=== PATIENT | male | born 1970 | race Caucasian/White ===

== ENCOUNTER 2022-06-06 09:00 | Outpatient (NON) | payer OTHER, SELFPAY | END 2022-06-06 09:01 | disposition home or self-care (01) | LOC: ANHLAB 06-07 08:14 | PROVIDERS: PCP Family Medicine Adolescent Medicine; Visit Provider Internal Medicine Gastroenterology | DX: Z12.11 Encounter for screening for malignant neoplasm of colon (principal) | CPT/HCPCS: 88305 ==

== ENCOUNTER 2022-06-06 11:08 | Day surgery (SDC) | payer OTHER, SELFPAY ==
[2022-04-08 14:09] VITALS: BMI 28.8
[2022-05-26 15:42] VITALS: BMI 29.0
[2022-06-06 11:28] VITALS: BP 146/100; PULSE 91; RESP 16; TEMP 36.4; O2SAT 97
[2022-06-06 11:33] VITALS: BMI 29.8
--- NOTE | 2022-06-06 11:34 | P.PNAN_ITS ---
Anes - Initial Pre Proc Eval Procedure: Operation Date: 06/06/22 13:00 Proposed Procedures p Screening Colonoscopy - Lui Jolly MD Date/Time: 06/06/22 11:34 Surgeon: Lui Jolly MD Pre Op Diagnosis: Neoplasm Screening Patient Data Age: 52 Gender: M Height: 1.85 m Weight: 102.6 kg Last Vital Signs Temp 36.4 C 06/06/22 11:28 Pulse 91 06/06/22 11:28 Resp 16 06/06/22 11:28 BP 146/100 H 06/06/22 11:28 Pulse Ox 97 06/06/22 11:28 O2 Del Method Room Air 06/06/22 11:28 Allergies Allergy/AdvReac Type Severity Reaction Status Date / Time Sulfa (Sulfonamide Allergy Severe Itching Verified 06/06/22 11:26 Antibiotics) Home Medications Medication Instructions Recorded Confirmed Type alirocumab 75 mg/mL subcutaneous See Rx Instructions subcut Q14D #6 11/08/21 0 06/06/22 Rx pen injector (Praluent Pen) mL escitalopram oxalate 20 mg tablet 20 mg PO DAILY 11/11/21 06/06/22 History indomethacin 50 mg capsule 50 mg PO TID #270 caps 03/18/22 06/06/22 Rx Patient hx anesthesia problems: none Family hx anesthesia problems: none Results Review: All pre-operative results and documents have been reviewed as part of the pre- operative evaluation. [facility] Past Medical History Medical History History of deviated nasal septum Surgical History Surgical History History of arthroscopy of right knee Torn meniscus Family History Family History Sibling Diabetes mellitus Father Lung cancer Colon polyp Son Asthma Grandparent Breast cancer Heart disease Mother Hypertension Social History Social History Smoking status: Never smoker Tobacco type: smokeless tobacco Smokeless tobacco user: chewing tobacco Second hand tobacco smoke exposure: No Alcohol intake: current Alcohol use details: 1-2 x week Substance use: never Substance use type: does not use Living arrangements: with family Occupation/Education: occupation Gender identity (if verbalized by the patient): Male Spiritual care concerns: No Agree to blood products: Yes Anes - Eval Final PreProcedure Day of Procedure 06/06/22 11:34 Patient weight: overweight Heart: regular rate and rhythm Lungs: clear to auscultation Airway: Mallampati scale class II Neurological: alert and oriented Last oral intake: >/= 8 hours ASA classification: II Emergent: no Anesthetic plan: proceed Anesthesia type and monitoring: general GIVS and standard monitoring Results Review: All pre-operative results and documents have been reviewed as part of the pre- operative evaluation. Informed Consent: The patient's anesthetic plan and its attendant risks and benefits were discussed with the patient/family/POA. Questions were solicited and answers provided to the satisfaction of the patient/family/POA.
[2022-06-06] MEDS: LACTATED RINGERS 1,000 ML 150 ML IV CONT (11:38)
--- NOTE | 2022-06-06 11:49 | PM.HPGS ---
History of Present Illness History of Present Illness Consent: Risks, benefits, and alternatives have been discussed and questions answered. Patient agrees to proceed with procedure. Chief complaint: Neoplasm Screening Narrative: Getachew Longo is a 52 year old male here for first screening colonoscopy Review of Systems Constitutional: Constitutional: Denies headache(s) and Denies weakness Eyes: Eyes: Denies blurry vision ENT: Reports Normal hearing present, Denies headache(s) and Denies neck pain Cardiovascular: Cardiovascular: Denies chest pain and Denies dyspnea Respiratory: Respiratory: Denies dyspnea Gastrointestinal: Gastrointestinal: Reports no additional gastrointestinal complaints Genitourinary: Genitourinary: Denies dysuria Musculoskeletal: Musculoskeletal: Denies neck pain Integumentary/Breasts: Skin/Breast: Denies dry skin Neurologic: Reports Normal hearing present, Denies headache(s) and Denies weakness Psychiatric: Psychiatric: Denies anxiety Endocrine: Endocrine: Denies change in body appearance Hematologic/Lymphatic: Hematologic/Lymphatic: Denies easy bleeding Allergic/Immunologic: Allergic/Immunologic: Denies urticaria PMF Past Medical History Medical History (Updated 06/06/22 @ 11:50 by Lui Jolly MD) Colon cancer screening History of deviated nasal septum Surgical History Surgical History History of arthroscopy of right knee Torn meniscus Family History Family History Sibling Diabetes mellitus Father Lung cancer Colon polyp Son Asthma Grandparent Breast cancer Heart disease Mother Hypertension Social History Social History Smoking status: Never smoker Tobacco type: smokeless tobacco Smokeless tobacco user: chewing tobacco Second hand tobacco smoke exposure: No Alcohol intake: current Alcohol use details: 1-2 x week Substance use: never Substance use type: does not use Living arrangements: with family Occupation/Education: occupation Gender identity (if verbalized by the patient): Male Spiritual care concerns: No Agree to blood products: Yes Meds Home Medications and Allergies Home Medications Medication Instructions Recorded Confirmed Type alirocumab 75 mg/mL subcutaneous See Rx Instructions subcut Q14D #6 11/08/21 06/06/22 Rx pen injector (Praluent Pen) mL escitalopram oxalate 20 mg tablet 20 mg PO DAILY 11/11/21 06/06/22 History indomethacin 50 mg capsule 50 mg PO TID #270 caps 03/18/22 06/06/22 Rx Allergies Allergy/AdvReac Type Severity Reaction Status Date / Time Sulfa (Sulfonamide Allergy Severe Itching Verified 06/06/22 11:26 Antibiotics) Vital Signs Vital Signs - 24 hr 06/06/22 11:28 Temperature 97.6 F Pulse Rate 91 Respiratory Rate 16 Blood Pressure 146/100 H Pulse Oximetry 97 Oxygen Delivery Room Air Exam Const: General: comfortable and no acute distress HENMT: Face/Nose/Sinus: Normal nares present Eyes: General: appearance normal, both eyes and all related structures Neck: Neck: no JVD Resp: Auscultation: clear to auscultation bilaterally Cardio: Rate: regular rate Rhythm: regular rhythm GI: Inspection: non-distended GI Palp: Yes Soft to palpation Skin: General skin exam: normal color Neuro: General: gait normal Speech: normal speech Extrem: General: normal to inspection Psych: Mental Status: mental status grossly normal Assessment and Plan Assessment and plan (1) Colon cancer screening: Code(s): Z12.11 - Encounter for screening for malignant neoplasm of colon Status: Acute Assessment and Plan: colonoscopy
[2022-06-06 12:08] VITALS: BP 120/77; PULSE 89; RESP 18; O2SAT 97
[2022-06-06 12:18] VITALS: BP 116/81; PULSE 87; RESP 16; O2SAT 97
--- NOTE | 2022-06-06 12:27 | SUR.PHASEII ---
PT AWAKE AND ALERT. TALKATIVE. DRINKING WATER. DENIES PAIN OR NAUSEA.
[2022-06-06 12:28] VITALS: BP 140/91; PULSE 84; RESP 18; O2SAT 97
--- NOTE | 2022-06-06 12:42 | WPDANESPN ---
Anes - Prog Note Post-Op Date/Time: 06/06/22 12:42 Cardiovascular status: normal Respiratory status: normal Airway patency: baseline Mental status: baseline Post-Op hydration status: normal Vital Signs: Last Vital Signs Temp 36.4 C 06/06/22 11:28 Pulse 84 06/06/22 12:28 Resp 18 06/06/22 12:28 BP 140/91 H 06/06/22 12:28 Pulse Ox 97 06/06/22 12:28 O2 Del Method Room Air 06/06/22 12:28 Pain Score (VAS): 0 I/O: Intake & Output 06/05/22 06/06/22 06/06/22 23:59 07:59 15:59 Intake Total 500 Balance 500 Patient Feedback: Patient satisfied with anesthetic care.
== END 2022-06-06 12:49 | disposition home or self-care (01) ==
PROVIDERS: PCP Family Medicine Adolescent Medicine; Visit Provider Internal Medicine Gastroenterology
PROC: 0DJD8ZZ Inspection of Lower Intestinal Tract, Via Natural or Artificial Opening Endoscopic (ICD-10-PCS; CPT 45378; principal; 2022-06-06 13:00)
DX: Z12.11 Encounter for screening for malignant neoplasm of colon (principal)
CPT/HCPCS: 45385

== ENCOUNTER 2024-05-23 14:57 | Outpatient (CLI) | payer OTHER, SELFPAY ==
--- NOTE | ~2024-05-23 | XR_ITS ---
XR sacroiliac joints min 3V Ordering provider: Mo Delacruz History: . Pain in unspecified joint . Comparison: None. FINDINGS: BONES: No acute fracture or dislocation. Possibility of ankylosing spondylitis changes in the spine cannot be excluded. JOINTS: The bilateral sacroiliac joint spaces shows bilateral sacroiliacs. Fusion on the right side c annot be excluded.. SOFT TISSUES: Unremarkable. IMPRESSION: NO ACUTE OSSEOUS ABNORMALITY. 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 Ankylosing spondylitis changes in the lumbar spine are highly suggestive. Clinical correlation advis ed. Reviewed, dictated and finalized at location A. IMPRESSION: NO ACUTE OSSEOUS ABNORMALITY. Bilateral sacroiliitis with highly suggestive fus ion on the right side. Ankylosing spondylitis changes in the lumbar spine are h ighly suggestive. Clinical correlation advised.
--- NOTE | ~2024-05-23 | XR_ITS ---
Left foot Technique: AP and lateral views were obtained. Clinical History: Pain Findings: No acute fracture or dislocation is seen. Osseous alignment is anatomic. Joint spaces are p reserved without erosive or degenerative change. Soft tissues are unremarkable. Impression: Unremarkable left foot radiographs. Reviewed, dictated and finalized at location . Impression: Unremarkable left foot radiographs.
--- NOTE | ~2024-05-23 | XR_ITS ---
Right foot Technique: AP and lateral views were obtained. Clinical History: Pain Findings: No acute fracture or dislocation is seen. Osseous alignment is anatomic. Joint spaces are p reserved without erosive or degenerative change. Soft tissues are unremarkable. Impression: Unremarkable right foot radiographs. Reviewed, dictated and finalized at [facility]. Impression: Unremarkable right foot radiographs.
--- NOTE | ~2024-05-23 | XR_ITS ---
XR hand RT 2V Ordering provider: Mo Delacruz History: . Pain in unspecified joint . Comparison: None. FINDINGS: BONES: No acute fracture or dislocation. JOINT SPACES: Normal. SOFT TISSUES: Normal. IMPRESSION: No acute osseous abnormality right hand. Reviewed, dictated and finalized at location A.
--- NOTE | ~2024-05-23 | XR_ITS ---
XR hand LT 2V Ordering provider: Mo Delacruz History: . Pain in unspecified joint . Comparison: January 11, 2016 FINDINGS: BONES: Postoperative changes are seen in the second, and third distal digits. Healed fractures in the distal phalanx of the fourth and fifth fingers is noted. Minimal subluxation seen in the distal phal anx of the fourth finger. Sclerotic area seen in the distal left radius. Follow-up advised. JOINT SPACES: Well maintained. SOFT TISSUES: Unremarkable. IMPRESSION: No acute osseous abnormality left hand. Postoperative changes in the distal phalanges of the second and third finger. Healed fractures in the distal phalanx of the fourth and fifth fingers. Reviewed, dictated and finalized at location A. IMPRESSION: No acute osseous abnormality left hand. Postoperative changes in the distal phalanges of the second and third finger. H ealed fractures in the distal phalanx of the fourth and fifth fingers.
== END 2024-05-23 14:58 | disposition home or self-care (01) ==
PROVIDERS: PCP Family Medicine Adolescent Medicine
DX: M25.50 Pain in unspecified joint (principal)
CPT/HCPCS: 72202; 73120; 73620

== ENCOUNTER 2024-07-02 08:58 | Outpatient (CLI) | payer OTHER, SELFPAY ==
--- NOTE | ~2024-07-02 | MR_ITS ---
MRI of the left knee Clinical history: Chondromalacia Technique: Coronal proton density and proton density-weighted images, sagittal proton-density and T2 fat-sat images, and axial proton-density fat-saturated images were acquired. Findings: Anterior and posterior cruciate ligaments are intact. Medial collateral ligament and the la teral collateral ligament complex are intact. Popliteus tendon is intact. There is oblique flap tear of the posterior horn of the medial meniscus extending to the body segment . Lateral meniscus intact. Articular cartilage is relatively well preserved throughout the knee. Bone marrow signals are unremar kable. Extensor mechanism is intact. No significant joint effusion or Lacy's cyst. Impression: Oblique flap tear of the posterior horn and body of the medial meniscus. Reviewed, dictated and finalized at location M. Impression: Oblique flap tear of the posterior horn and body of the medial meniscus.
== END 2024-07-02 08:59 | disposition home or self-care (01) ==
LOC: GOSHIMG 08:59
PROVIDERS: PCP Family Medicine Adolescent Medicine; Visit Provider Orthopaedic Surgery
DX: S83.242A Other tear of medial meniscus, current injury, left knee, initial encounter (principal); M94.262 Chondromalacia, left knee; X58.XXXA Exposure to other specified factors, initial encounter
CPT/HCPCS: 73721

== ENCOUNTER 2024-07-12 10:30 | Outpatient (CLI) | payer OTHER, SELFPAY ==
--- NOTE | 2024-07-12 10:44 | ECG_ITS ---
Test Date: 2024-07-12 10:51:45 Measurements Intervals [place] Rate: 68 P: 14 TN: 145 QRS: 12 QRSD: 88 T: 29 QT: 379 QTc: 403 Interpretive Statements SINUS RHYTHM No previous ECG available for comparison Electronically Signed On 07-12-2024 19:10:26 CDT by Deepika Boyce
--- OUTSIDE RECORDS SUMMARY | 2024-07-13 11:52 | XMS_ITS | Clinical Summary ---
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 Name Role Phone JULIO C MAHAJAN MD Unavailable [phone] Reason for Visit and Chief Complaint The Chief Complaint is: follow up for anxiety and depression Problems Includes: Problems addressed during this encounter and other active Problems Current Visit Onset Date Resolved Date Provider Conditio n Status Generalized Anxiety Disorder 08/11/2022 JULIO C MAHAJAN MD Active Last Documented On 3 6:32PM ; [facility] Panic Disorder 08/11/2022 JULIO C Stewart Active Last Documented On 3 6:33PM ; [facility] Psychophysiological Insomnia 05/11/2018 Active Last Documented On 3 5:52PM ; [facility] Major Depression Recurrent Mild 06/12/2012 MAI MAHAJAN MD Active Last Documented On 3 3:12PM ; [facility] Past Visits Onset Date Resolved Date Provider Condition Status Hypothyroidism 01/11/2021 JULIO C Stewart Inactive Last Documented On 3 6:33PM ; [facility] 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 Last Documented On 3 5:53PM ; [facility] Note: - hypofunction Sleep Disorder Hypersomnia 10/11/2017 Active Last Documented On 3 5:51PM ; [facility] Hyperlipidemia 05/27/2016 Active Last Documented On 3 5:50PM ; [facility] Vitamin Deficiency 02/10/2014 Active Last Documented On 3 5:48PM ; [facility] Ankylosing spondylitis of unspecified sites in spine 06/12 Active Last Documented On 3 5:48PM ; [facility] Plan of Treatment Major Depressive Disorder - Lexapro 20 mg a day Generalized Anxiety Disorder - Klonopin 0.5 mg 1/2 to 1 tab as needed only for anxiety/sleep Sleep Disorder Hypersomnia - Armodafinil 250 mg 1 tab every am as needed only - has not taken for awhile Psychophysiological Insomnia - Good sleep hygiene habits, pt uses Klonopin 0.5 mg 1/2 to 1 tab as needed only for anxiety/sleep - Last Documented On 11/20/2022 6:39PM ; [facility] Assessments Includes: Assessments from this encounter Findings - Mild recurrent major depression - Last Documented On 11/20/2022 6:39PM ; [facility] - Psychophysiological insomnia - Last Documented On 11/20/2022 6:39PM ; [facility] - Generalized anxiety disorder - Last Documented On 11/20/2022 6:39PM ; [facility] - Panic disorder - Last Documented On 11/20/2022 6:39PM ; [facility] Medical Equipment - Implanted Devices Includes: Current Devices No Medical Equipment Recorded Medications Includes: Medications discussed during this encounter and other current Medications Current Medications (continue as prescribed) Escitalopram Oxalate 20 MG Oral Tablet 06/02/2023 Provider: JULIO C MAHAJAN MD Diagnosis: Generalized anxi ety disorder TAKE 1 TABLET BY MOUTH DAILY Last Documented On 06/02/2023 8:50AM By Whitley Mahajan MD ; [facility] Levothyroxine Sodium 50 MCG Oral Tablet 05/24/2023 Michelle SMALLS MD Diagnosis: Last Documented On 05/30/2023 2:49PM By Whitley Mahajan MD ; [facility] Levothyroxine Sodium 50 MCG Oral Tablet 05/24/2023 Michelle SMALLS MD Diagnosis: 1 tablet every morning Last Documented On 05/30/2023 2:52PM By JUAN CARLOS SANDOVAL ; [facility] Drysol 20% External Solution 07/05/2022 Provider: HASEEB SMALLS MD Diagnosis: PRN Last Documented On 10/31/2022 3:08PM By RIK BERGER ; [facility] KlonoPIN 0.5 MG OR TABS 04/25/2022 Provider: MAI MAHAJAN MD Diagnosis: Psychophysiologi c insomnia as directed 1/2 to 1 tablet as needed only for anxiety/sleep Last Documented On 07/09/2022 5:36PM By Whitley Mahajan MD ; [facility] Praluent 75 MG/ML SC SOAJ 05/23/2019 Provider: Diagnosis: 1 injection every two weeks Last Documented On 07/09/2022 5:36PM By RIK BERGER ; [facility] Indomethacin 50 MG OR CAPS 01/26/2018 Provider: Diagnosis: 1 cap bid Last Documented On 07/09/2022 5:36PM By RIK BERGER ; [facility] Medications Administered Includes: Administered Medications from this encounter No Administered Medications Recorded Vital Signs Includes: Vital Signs from this encounter Vital Name 10/31/2022 03:14P Blood Pressure Sitting L 132/84 BP Cuff Size Regular Pulse Rate-Sitting (bpm) 72 Pulse Rhythm Regular Height (in) 72 Weight (lb) 220 Body Mass Index 29.8 Body Surface Area 2.2 Note: self reported vitals Last Documented: On 10/31/2022 3:15PM ; [facility] Results Includes: Results discussed during this encounter No Results Recorded For Specified Dates History of Present Illness Includes: History of Present Illness from this encounter HPI GETACHEW THAKKAR is a 52 year old male. - Allergy list reviewed - Past medical history reviewed - Medication list reviewed Getachew reported that he has been doing good in general. 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 He said that he cannot retire right now due to high cost of the health insurance. Whenever he gets anxious, it always revolves around work since he takes his job seriously. He may take Klonopin once or twice a month and he only takes half a tablet of the 0.5 mg of Klonopin. At times, he uses it at night for sleep. However, sleep is good in general. There may be nights where he may have trouble falling asleep. He is still motivated to do things. Appetite is good. He denied feeling bad about himself. He is able to focus and concentrate. He denied having any psychomotor restlessness. He denied having any excessive anxiety. He denied suicidal thoughts. No delusions or hallucinations. He denied having any mood swings. The Lexapro 20 mg once a day has been helping his mood/anxiety in general. MENTAL STATUS EXAM: Sensorium - alert, oriented to name, place, and time Attitude - cooperative Gait - ambulatory Sleep - difficulty falling asleep at times, occasionally tired during the day Interest/Energy/Motivation - good Guilt/Worthlessness - absent Concentration/Attention Span - able to focus and concentrate Memory Recall - fairly good Appetite - good - on 04/25/22 pt weighed 220 lbs and on 10/31/22 he weighed the same Suicidal Thoughts - absent Homicidal Thoughts - absent Delusions - absent Hallucinations - absent Appearance - casually groomed Motor Behavior - calm Eye Contact - intermittent Speech - fluent Mood - not depressed Affect - not as anxious Thought Process - coherent Insight and Judgment - intact Social History Description Last Updated Caffeine use: Daily coffee c onsumption - 44 oz of Diet Caff Free Mountain Dew daily, no coffee or tea.Tobacco use: Tobacco use --chews tobacco - as of 07/24/19 -- 2 pouches daily.Alcohol: Alcohol alcohol use -- He drinks 6 beers in a week.Drug Use: Not using drugs (Illicit).Marital: Marital history -- .He has 2 sons--Pravin and Marcus He finished his [employer] degree. It took him 3 years to finish it.He denied any history of abuse. No past and pending legal problems. His restoration background is [employer]. 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 10/31/2022 Last Documented On 3 6:39PM ; [facility] Smoking Status Unknown Procedures and Surgical History Includes: Procedures from this encounter Procedures Code Diagnosis Performing Provider Service L ocation Service Date education and instructions Last Documented On 3 3:01PM ; [facility] supportive care and encourag ement--given positive reinforcement to keep patient motivated and active, breathing exercises, guided meditation Last Documented On 3 6:36PM ; [facility] ~* Call [phone] and /or go t o the nearest emergency room or call me if suicidal/homicidal ideation or other serious concerns arise. ~ ~* I gave instructions to call me should there be any questions or concerns. ~ ~* Patient voiced understanding and agreed to treatment plan Last Documented On 3 3:08PM ; [facility] dangerousness assessment: no suicide risk 3085F Last Documented On 3 3:01PM ; [facility] use of tobacco assessment performed 1000F Last Documented On 3 3:10PM ; [facility] patient screened for future fall risk: documentation of any fall with injury in past year - no recent falls 1100F Last Documented On 3 3:08PM ; [facility] review of medications documented 1160F Last Documented On 3 3:08PM ; [facility] assessment of suicide risk performed - n ot suicidal Last Documented On 3 3:21PM ; [facility] screening for adult depressi on: impression and score - please see above for treatment and PHQ score Last Documented On 3 3:10PM ; [facility] standardized depression screening: posit ciarra for symptoms Last Documented On 3 3:10PM ; [facility] encouragement to exercise - balanced liam l plan, low fat low carb diet Last Documented On 3 3:08PM ; [facility] Counseling for smoking cessation provided G0436 Last Documented On 3 3:21PM ; [facility] Clinical summary provided to patient Last Documented On 3 3:01PM ; [facility] PHQ-9: total score 2 Last Documented On 3 4:36PM ; [facility] Medical History Includes: Medical History addressed during this encounter Description Last Updated Primary Care Provider: Dr. Michelle Smalls.Diagnoses: Acute suppurative sinusitis - given Augmentin 875 mg 01/14/21Deviated nasal septum. HyperlipidemiaVitamin D deficiency. Tinea pedis - given Ketoconazole 2% cream 05/29/19Dermatitis - of the ear -- given Fluocinonide 0.05% soln 09/03/20. Ankylosing spondylitisHistory of low serum testosteroneHypersomnia - home sleep study done last 07/12/17 and did not show CECE but Nuvigil really helped improve mental alertness but has not been taking NuvigilTraumatic amputation of finger(s) -- on his left hand. Dr. Childs reattached them at [place] -- 02/09/18 fusion of left 2nd and 3rd fingers after reattachment surgery by Dr. Childs -- developed infection -- 02/16/18 prescribed Augmentin 875mg and on 02/09/18 keflex 500mgProcedural: Coronavirus 2019-nCoV vaccine - [employer] ([place]) #1 and #2 06/2020 #3 urgical: Nasal septal deviation repair 10/15/13 Arthrodesis of a hand joint - fusion of left second and third finger joints after reattachment surgery 02/09/[address] Childs Surgery of right knee 10/200711/20/2022 Last Documented On 3 6:35PM ; [facility] Family History Includes: Family History addressed during this encounter Description Last Updated Maternal: Depression -- moth er Anxiety disorder NOS -- mother, son Hypochondriasis -- motherMaternal grandfather's: Alcoholism -- grandfatherFraternal: Psychiatric disorders -- brother Nnamdi is mentally challenged, h/o brain injury and seizure disorder Bipolar disorder NOS -- brother Galo 11/20/2022 Last Documented On 3 6:27PM ; [facility] Review of Systems Includes: Review of Systems from this encounter Systemic: Not feeling poorly (malaise). No fever, no chills, and no night sweats. Head: No headache and no sinus pain. Neck: No neck pain and no neck stiffness. Eyes: No vision problems, no itching of the eyes, and no eye pain. Otolaryngeal: No hearing loss, no earache, no nasal discharge, no hoarseness, and no sore throat. Cardiovascular: No chest pain or discomfort, no palpitations, and the heart rate was not fast. Pulmonary: No dyspnea, no cough, and no wheezing. Gastrointestinal: No heartburn. No nausea, no vomiting, no diarrhea, and no constipation. Genitourinary: No increase in urinary frequency. No dysuria. Endocrine: No polydipsia and no excessive sweating. Musculoskeletal: No muscle aches, no localized joint pain, and no localized joint stiffness. Neurological: No dizziness, no vertigo, no fainting, and no motor disturbances. Skin: No pruritus. No skin lesions and no rash. Mental Status Includes: Mental Status from this encounter Description Mild recurrent major depress ion Functional Status Includes: Functional Status from this encounter No Functional Status Recorded Physical Exam Includes: Physical Exam from this encounter Allergies Includes: Active Allergies Substance Type Reaction Onset Date Resolved Date Statu s Sulfa Antibiotics Allergy Skin Rashes / Eruption of skin 06/12/2012 Active Last Documented On 10/31/2022 3:07PM ; [facility] Note: Imported from external source. Encounters Encounter Provider Location Date Check-In Time Check-Out Time Diagnosis TELEHEALTH ADULT PSYCH ESTABLISHED JULIO C MAHAJAN MD [facility] 023 2:59PM 11:59PM Psychophysiological Insomnia,Major Depression Recurrent Mild,Generalized Anxiety Disorder,Panic Disorder Insurance Includes: Active Insurance Policies Plan Name Member ID Group # Subscriber Relationship Effect ciarra Dates 1 - [place] [id number] GETACHEW THAKKAR Self Clinical Notes Includes: Clinical Notes from this encounter * Progress note Date Encounter Last Documented by 10/31/2022 TELEHEALTH ADULT PSYCH ESTABLISH ED Last documented on 11/20/2022; 6:39 PM, JULIO C MAHAJAN MD; [facility] Top of Document Medication psychotherapy 30 minutes Patient gave verbal consent for Telehealth 10/31/22. Location of patient: patient's home Location of provider: provider's office Patient was alone for the session. This visit was conducted with use of interactive audio and video telecommunication system with real time communication between the patient and the provider. Patient consent for virtual visit obtained today. Total time spent with patient via audio and video telecommunication 30 minutes. Active Problems & Conditions - Ankylosing spondylitis of unspecified sites in spine - Generalized Anxiety Disorder - Hyperlipidemia - Major Depression Recurrent Mild - Panic Disorder - Psychophysiological Insomnia - Sleep Disorder Hypersomnia - Testicular Failure - - hypofunction - Vitamin Deficiency Chief Complaint The Chief Complaint is: Follow up for anxiety and depression. History of Present Illness GETACHEW THAKKAR is a 52 year old male. - Allergy list reviewed - Past medical history reviewed - Medication list reviewed Getachew reported that he has been doing good in general. 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 He said that he cannot retire right now due to high cost of the health insurance. Whenever he gets anxious, it always revolves around work since he takes his job seriously. He may take Klonopin once or twice a month and he only takes half a tablet of the 0.5 mg of Klonopin. At times, he uses it at night for sleep. However, sleep is good in general. There may be nights where he may have trouble falling asleep. He is still motivated to do things. Appetite is good. He denied feeling bad about himself. He is able to focus and concentrate. He denied having any psychomotor restlessness. He denied having any excessive anxiety. He denied suicidal thoughts. No delusions or hallucinations. He denied having any mood swings. The Lexapro 20 mg once a day has been helping his mood/anxiety in general. MENTAL STATUS EXAM: Sensorium - alert, oriented to name, place, and time Attitude - cooperative Gait - ambulatory Sleep - difficulty falling asleep at times, occasionally tired during the day Interest/Energy/Motivation - good Guilt/Worthlessness - absent Concentration/Attention Span - able to focus and concentrate Memory Recall - fairly good Appetite - good - on 04/25/22 pt weighed 220 lbs and on 10/31/22 he weighed the same Suicidal Thoughts - absent Homicidal Thoughts - absent Delusions - absent Hallucinations - absent Appearance - casually groomed Motor Behavior - calm Eye Contact - intermittent Speech - fluent Mood - not depressed Affect - not as anxious Thought Process - coherent Insight and Judgment - intact Current Medication - Drysol 20% External Solution as directed PRN, 15 days, 0 refills - Escitalopram Oxalate 20 MG Oral Tablet One tablet daily, 90 days, 1 refills - Indomethacin 50 MG Capsule as directed 1 cap bid, 90 days, 0 refills - KlonoPIN 0.5 MG Tablet as directed as directed /2 to 1 tablet as needed only for anxiety/sleep, 30 days, 0 refills - Praluent 75 MG/ML Solution Auto-injector as directed 1 injection every two weeks, 84 days, 0 refills - - No side effects reported Past Medical/Surgical History Primary Care Provider: Dr. Haseeb Smalls. Diagnoses: Acute suppurative sinusitis - given Augmentin 875 mg 01/14/21 Deviated nasal septum. Hyperlipidemia Vitamin D deficiency. Tinea pedis - given Ketoconazole 2% cream 05/29/19 Dermatitis - of the ear -- given Fluocinonide 0.05% soln 09/03/20. 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 Dr. Childs reattached them at [place] -- 02/09/18 fusion of left 2nd and 3rd fingers after reattachment surgery by Dr. Childs -- developed infection -- 02/16/18 prescribed Augmentin 875mg and on 02/09/18 keflex 500mg Procedural: - Coronavirus 2019-nCoV vaccine - [employer] ([place]) #1 and #2 06/2020 #3 06/2021 Surgical: - Nasal septal deviation repair 10/15/13 - Arthrodesis of a hand joint - fusion of left second and third finger joints after reattachment surgery 02/09/[address] Childs - Surgery of right knee 10/2007 User Defined 4 PREVIOUS PSYCHIATRIC HOSPITALIZATIONS: none PREVIOUS PSYCHIATRIC TREATMENT: Pt was under the care of Dr. Roman in 2007 and was put on Lexapro but he has not seen him for the past 6 years. He was getting his antidepressant from PCP. PREVIOUS PSYCHIATRIC MEDICATIONS: Lexapro -- currently take 20mg Vitamin D -- not taking 01/2020 Armodafinil 250 -- not needed since he has been working from home 07/2019 Social History Tobacco use: Current smoker - chews 2 pouches of tobacco daily. Caffeine use: Daily coffee consumption - 44 oz of Diet Caff Free Mountain Dew daily, no coffee or tea. Tobacco use: Tobacco use --chews tobacco - as of 07/24/19 -- 2 pouches daily. Alcohol: Alcohol alcohol use -- He drinks 6 beers in a week. Drug Use: Not using drugs (Illicit). Marital: Marital history -- . He has 2 sons--Pravin and Marcus He finished his [employer] degree. It took him 3 years to finish it.He denied any history of abuse. No past and pending legal problems. His restoration background is [employer]. 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 Allergies - Sulfa Antibiotics Reaction: Skin Rashes / Eruption of skin Family History Maternal: Depression -- mother Anxiety disorder NOS -- mother, son Hypochondriasis -- mother Maternal grandfather's: Alcoholism -- grandfather Fraternal: Psychiatric disorders -- brother Nnamdi is mentally challenged, h/o brain injury and seizure disorder Bipolar disorder NOS -- brother Galo Review Of Systems Systemic: Not feeling poorly (malaise). No fever, no chills, and no night sweats. Head: No headache and no sinus pain. Neck: No neck pain and no neck stiffness. Eyes: No vision problems, no itching of the eyes, and no eye pain. Otolaryngeal: No hearing loss, no earache, no nasal discharge, no hoarseness, and no sore throat. Cardiovascular: No chest pain or discomfort, no palpitations, and the heart rate was not fast. Pulmonary: No dyspnea, no cough, and no wheezing. Gastrointestinal: No heartburn. No nausea, no vomiting, no diarrhea, and no constipation. Genitourinary: No increase in urinary frequency. No dysuria. Endocrine: No polydipsia and no excessive sweating. Musculoskeletal: No muscle aches, no localized joint pain, and no localized joint stiffness. Neurological: No dizziness, no vertigo, no fainting, and no motor disturbances. Skin: No pruritus. No skin lesions and no rash. Physical Findings - Vitals taken 10/31/2022 03:14 pm self reported vitals BP-Sitting L 132/84 mmHg BP Cuff Size Regular Pulse Rate-Sitting 72 bpm Pulse Rhythm Regular Height 72 in Weight 220 lbs Body Mass Index 29.8 kg/m2 Body Surface Area 2.2 m2 Tests Educational Testing: Questionnaires PHQ-9: Value PHQ-9: total score 2 Assessment - Mild recurrent major depression - Psychophysiological insomnia - Generalized anxiety disorder - Panic disorder Therapy - Dangerousness assessment: no suicide risk. - Counseling for smoking cessation provided. - Supportive care and encouragement--given positive reinforcement to keep patient motivated and active, breathing exercises, guided meditation. - Encouragement to exercise - balanced meal plan, low fat low carb diet. - Education and instructions. - Assessment of suicide risk performed - not suicidal - Clinical summary provided to patient. * Call [phone] and /or go to the nearest emergency room or call me if suicidal/homicidal ideation or other serious concerns arise. * I gave instructions to call me should there be any questions or concerns. * Patient voiced understanding and agreed to treatment plan. Plan StartCited - Other Follow-up 05/01/23 EndCited Major Depressive Disorder - Lexapro 20 mg a day Generalized Anxiety Disorder - Klonopin 0.5 mg 1/2 to 1 tab as needed only for anxiety/sleep Sleep Disorder Hypersomnia - Armodafinil 250 mg 1 tab every am as needed only - has not taken for awhile Psychophysiological Insomnia - Good sleep hygiene habits, pt uses Klonopin 0.5 mg 1/2 to 1 tab as needed only for anxiety/sleep Practice Management Use of tobacco assessment performed and patient screened for future fall risk documentation of any fall with injury in past year - no recent falls Review of medications documented; Standardized depression screening: positive for symptoms and for adult impression and score - please see above for treatment and PHQ score.
--- OUTSIDE RECORDS SUMMARY | 2024-07-13 11:52 | XMS_ITS | Clinical Summary ---
Author Organization [facility] Address [address] [place] [phone] Phone Care Team Providers Care Electrical Assemblies Supervisor Name Role Phone JULIO C MAHAJAN MD Unavailable [phone] Reason for Visit and Chief Complaint * PHONE CALL Problems Includes: Problems addressed during this encounter and other active Problems Current Visit Onset Date Resolved Date Provider Conditio n Status Generalized Anxiety Disorder 06/12/2012 JULIO C MAHAJAN MD Inactive Last Documented On 5 3:15PM ; [facility] Generalized Anxiety Disorder 06/12/2012 JULIO C MAHAJAN MD Active Last Documented On 1 8:57AM ; [facility] Past Visits Onset Date Resolved Date Provider Condition Status Hypothyroidism 01/11/2021 JULIO C Stewart Active Last Documented On 1 10:59AM ; [facility] 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 JULIO C MAHAJAN MD Active Last Documented On 1 10:58AM ; [facility] Note: - hypofunction Psychophysiological Insomnia 05/11/2018 JULIO C MAHAJAN MD Active Last Documented On 9 7:41AM ; [facility] Sleep Disorder Hypersomnia 10/11/2017 JULIO C MAHAJAN MD Active Last Documented On 8 7:36AM ; [facility] Hyperlipidemia 05/27/2016 JULIO C Stewart Active Last Documented On 7 4:10PM ; [facility] Vitamin Deficiency 02/10/2014 JULIO C RUSH MD Active Last Documented On 7 4:32PM ; [facility] Ankylosing spondylitis of un specified sites in spine 06/12/2012 JULIO C MAHAJAN MD Active Last Documented On 5 3:17PM ; [facility] Major depressive disorder, recurrent, mild 06/12/2012 JULIO C MAHAJAN MD Active Last Documented On 5 3:16PM ; [facility] Plan of Treatment Pending Tests Order Diagnosis Results Due Ordering P rovider Lab TSH 02/23/21 JULIO C CHEN MD Last Documented On 1 11:01AM ; [facility] Lab FREE T4 02/23/21 JULIO C CHEN MD Last Documented On 11:01AM ; [facility] Lab SERUM TESTOSTERONE 02/23/21 WARREN MAHAJAN MD Last Documented On 1 11:01AM ; [facility] Lab PSA 02/23/21 JULIO C CHEN MD Last Documented On 1 11:01AM ; [facility] Lab VITAMIN D 02/23/21 JULIO C CHEN MD Last Documented On 2 10:15PM ; [facility] Assessments Includes: Assessments from this encounter Findings - Generalized anxiety disorder - Last Documented On 06/16/2021 10:45AM ; [facility] Medical Equipment - Implanted Devices Includes: Current Devices No Medical Equipment Recorded Medications Includes: Medications discussed during this encounter and other current Medications New / Renewed during this visit JULIO C MAHAJAN MD on 06/16/2021 Escitalopram Oxalate 20 MG Oral Tablet Provider: JULIO C MAHAJAN MD 90 day supply: 90 tablet, 1 refills Diagnosis: Generalized anxiety disorder One tablet daily Pharmacy: [facility] [address] [facility], [id number] - Last Documented On 08/27/2021 9:11AM By Whitley Mahajan MD ; [facility] Current Medications (continue as prescribed) KlonoPIN 0.5 MG Oral Tablet 04/25/2022 Provider: JULIO C MAHAJAN MD Diagnosis: Psychophysiologi c insomnia as directed 1/2 to 1 tablet as needed only for anxiety/sleep Last Documented On 04/25/2022 3:52PM By hWitley Mahajan MD ; [facility] Escitalopram Oxalate 20 MG Oral Tablet 12/23/2021 Provider: JULIO C MAHAJAN MD Diagnosis: Generalized anxi ety disorder One tablet daily Last Documented On 10:15AM By Whitley Mahajan MD ; [facility] Praluent 75 MG/ML Subcutaneo us Solution Auto-injector 05/23/2019 Provider: JANAE SMALLS MD Diagnosis: 1 injection every two weeks Last Documented On 07/24/2019 3:20PM By RIK BERGER ; [facility] Indomethacin 50MG Oral Capsule 01/26/2018 Provider: Diagnosis: 1 cap bid Last Documented On 07/11/2018 2:58PM By RIK BERGER ; [facility] Nuvigil 250MG Oral Tablet 07/04/2017 Provider: JULIO C MAHAJAN MD Diagnosis: Obstructive slee p apnea (adult) (pediatric) as directed --1 tab in am Last Documented On 07/04/2017 4:29PM By Whitley Mahajan MD ; [facility] Medications Administered Includes: Administered Medications from this encounter No Administered Medications Recorded Results Includes: Results discussed during this encounter No Results Recorded For Specified Dates History of Present Illness Includes: History of Present Illness from this encounter No History of Present Illness Recorded Social History No Social History Recorded - Smoking Status Unknown Medical History Includes: Medical History addressed during this encounter No Medical History Recorded Family History Includes: Family History addressed during this encounter No Family History Recorded Review of Systems Includes: Review of Systems from this encounter No Review of Systems Recorded Mental Status Includes: Mental Status from this encounter No Mental Status Recorded Functional Status Includes: Functional Status from this encounter No Functional Status Recorded Physical Exam Includes: Physical Exam from this encounter No Physical Exam Recorded Allergies Includes: Active Allergies Substance Type Reaction Onset Date Resolved Date Statu s Sulfa Antibiotics Allergy Skin Rashes / Eruption of skin 06/12/2012 Active Last Documented On 10/31/2022 3:07PM ; [facility] Note: Imported from external source. Encounters Encounter Provider Location Date Check-In Time Check-Out Time Diagnosis * PHONE CALL JULIO C MAHAJAN MD [facility] 06/17/19 22 9:57AM 11:59PM Generalized Anxiety Disorder Insurance Includes: Active Insurance Policies Plan Name Member ID Group # Subscriber Relationship Effect ciarra Dates 1 - [facility] [employer] [id number] DANE THAKKAR Self Clinical Notes Includes: Clinical Notes from this encounter No Clinical Notes Recorded
--- OUTSIDE RECORDS SUMMARY | 2024-07-13 11:53 | XMS_ITS | Clinical Summary ---
Author Organization [facility] Address [address] [place] [phone] Phone Care Team Providers Care Senior Commercial Loan Officer Name Role Phone JULIO C MAHAJAN MD Unavailable [phone] Reason for Visit and Chief Complaint The Chief Complaint is: follow up for anxiety and depression Problems Includes: Problems addressed during this encounter and other active Problems Current Visit Onset Date Resolved Date Provider Conditio n Status Psychophysiological Insomnia 05/11/2018 JULIO C MAHAJAN MD Active Last Documented On 9 7:41AM ; [facility] Sleep Disorder Hypersomnia 10/11/2017 JULIO C MAHAJAN MD Active Last Documented On 8 7:36AM ; [facility] Vitamin Deficiency 02/10/2014 JULIO C RUSH MD Inactive Last Documented On 11/27/2014 3:20PM ; [facility] Note: Vitamin D deficiency Vitamin Deficiency 02/10/2014 JULIO C RUSH MD Active Last Documented On 7 4:32PM ; [facility] Generalized Anxiety Disorder 06/12/2012 JULIO C MAHAJAN MD Inactive Last Documented On 5 3:15PM ; [facility] Generalized Anxiety Disorder 06/12/2012 JULIO C MAHAJAN MD Active Last Documented On 1 8:57AM ; [facility] Major Depression, Recurrent 06/12/2012 JULIO C MAHAJAN MD Inactive Last Documented On 5 3:16PM ; [facility] Past Visits Onset Date Resolved Date Provider Condition Status Hypothyroidism 01/11/2021 JULIO C Stewart Active Last Documented On 1 10:59AM ; [facility] 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 JULIO C RUSH MD Active Last Documented On 1 10:58AM ; [facility] Note: - hypofunction Hyperlipidemia 05/27/2016 JULIO C Stewart Active Last Documented On 7 4:10PM ; [facility] Ankylosing spondylitis of un specified sites in spine 06/12/2012 JULIO C MAHAJAN MD Active Last Documented On 5 3:17PM ; [facility] Major depressive disorder, recurrent, mild 06/12/2012 JULIO C MAHAJAN MD Active Last Documented On 5 3:16PM ; [facility] Plan of Treatment Major Depressive Disorder - Trintellix 10 mg a day Generalized Anxiety Disorder - Klonopin 0.5 mg 1/2 to 1 tab as needed only for anxiety/sleep Sleep Disorder Hypersomnia - Armodafinil 250 mg 1 tab every am as needed only Psychophysiological Insomnia - Good sleep hygiene habits, pt uses Klonopin 0.5 mg 1/2 to 1 tab as needed only for anxiety/sleep - Last Documented On 05/10/2022 1:25PM ; [facility] Pending Tests Order Diagnosis Results Due Ordering P rovider Lab TSH 02/23/21 JULIO C CHEN MD Last Documented On 1 11:01AM ; [facility] Lab FREE T4 02/23/21 JULIO C CHEN MD Last Documented On 1 11:01AM ; [facility] Lab SERUM TESTOSTERONE 02/23/21 WARREN MAHAJAN MD Last Documented On 1 11:01AM ; [facility] Lab PSA 02/23/21 JULIO C CHEN MD Last Documented On 1 11:01AM ; [facility] Lab VITAMIN D 02/23/21 JULIO C CHEN MD Last Documented On 2 10:15PM ; [facility] Instructions to patient Lose weight Last Documented On 3 3:13PM ; [facility] Education and Decision Aids were provided during visit for: Patient education about medi cation ---Education was given on medication(s) and diagnosis. I reviewed the risks, benefits and side effects of patient's medications Last Documented On 3 3:04PM ; [facility] Discussed calming techniques such as breathing exercises and other relaxation techniques Last Documented On 3 3:04PM ; [facility] Discussed good sleep hygiene habits Last Documented On 3 3:13PM ; [facility] Assessments Includes: Assessments from this encounter Findings - Vitamin deficiency - Last Documented On 05/10/2022 1:25PM ; [facility] - Major depression, recurrent - Last Documented On 05/10/2022 1:25PM ; [facility] - Psychophysiological insomnia - Last Documented On 05/10/2022 1:25PM ; [facility] - Hypersomnia - Last Documented On 05/10/2022 1:25PM ; [facility] - Generalized anxiety disorder - Last Documented On 05/10/2022 1:25PM ; [facility] Instructions Includes: Instructions from this encounter Instructions to patient Lose weight Last Documented On 3 3:13PM ; [facility] Education and Decision Aids were provided during visit for: Patient education about medi cation ---Education was given on medication(s) and diagnosis. I reviewed the risks, benefits and side effects of patient's medications Last Documented On 3 3:04PM ; [facility] Discussed calming techniques such as breathing exercises and other relaxation techniques Last Documented On 3 3:04PM ; [facility] Discussed good sleep hygiene habits Last Documented On 3 3:13PM ; [facility] Medical Equipment - Implanted Devices Includes: Current Devices No Medical Equipment Recorded Medications Includes: Medications discussed during this encounter and other current Medications Discontinued / Stopped on this date JULIO C MAHAJAN MD on 03/02/2020 KlonoPIN 0.5 MG Oral Tablet Provider: JULIO C MAHAJAN MD Diagnosis: Psychophysiologi c insomnia Last Documented On 04/25/2022 3:36PM By Whitley Mahajan MD ; [facility] New / Renewed during this visit JULIO C MAHAJAN MD on 04/25/2022 KlonoPIN 0.5 MG Oral Tablet Provider: JULIO C MAHAJAN MD 30 day supply: 30 tablet, 0 refills Diagnosis: Psychophysiologic insomnia as directed 1/2 to 1 tablet as needed only for anxiety/sleep Pharmacy: [facility] [address] [facility] [address] [facility], [phone] Last Documented On 04/25/2022 3:52PM By Whitley Mahajan MD ; [facility] Current Medications (continue as prescribed) Escitalopram Oxalate 20 MG Oral Tablet 12/23/2021 Provider: JULIO C MAHAJAN MD Diagnosis: Generalized anxi ety disorder One tablet daily Last Documented On 10:15AM By Whitley Mahajan MD ; [facility] Praluent 75 MG/ML Subcutaneo us Solution Auto-injector 05/23/2019 Provider: HASEEB SMALLS MD Diagnosis: 1 injection every two weeks Last Documented On 07/24/2019 3:20PM By RIK BERGER ; [facility] Indomethacin 50MG Oral Capsule 01/26/2018 Provider: Diagnosis: 1 cap bid Last Documented On 07/11/2018 2:58PM By RIK BERGER ; [facility] Nuvigil 250MG Oral Tablet 07/04/2017 Provider: JULIO C MAHAJAN MD Diagnosis: Obstructive slee p apnea (adult) (pediatric) as directed --1 tab in am Last Documented On 07/04/2017 4:29PM By Whitley Mahajan MD ; [facility] Medications Administered Includes: Administered Medications from this encounter No Administered Medications Recorded Vital Signs Includes: Vital Signs from this encounter Vital Name 04/25/2022 03:15P Blood Pressure Sitting L 138/72 BP Cuff Size Regular Pulse Rate-Sitting (bpm) 77 Pulse Rhythm Regular Height (in) 72 Weight (lb) 220 Body Mass Index 29.8 Body Surface Area (m2) 2.2 Note: self reported vitals Last Documented: On 04/25/2022 3:52PM ; [facility] Results Includes: Results discussed during this encounter No Results Recorded For Specified Dates History of Present Illness Includes: History of Present Illness from this encounter HPI DANE THAKKAR is a 52 year old male. - Allergy list reviewed - Past medical history reviewed - Medication list reviewed Pt has not been feeling depressed. Pt has not been as anxious. Pt denied having any mood swings. Pt has not been as irritable. Pt has been motivated in general in doing daily tasks. Sleep has been good. Pt has not been napping/sleeping too much during the daytime. Pt has not been feeling as tired. Appetite is good. Pt has not been feeling as bad about self. Pt is able to focus and concentrate for the most part. Pt denied having any psychomotor restlessness. Pt denied suicidal thoughts. Pt denied having any delusions/hallucinations. MENTAL STATUS EXAM: Sensorium - alert, oriented to name, place, and time Attitude - cooperative Gait - ambulatory Sleep - poor due to napping and staying up too late Interest/Energy/Motivation - good Guilt/Worthlessness - absent Concentration/Attention Span - able to focus and concentrate Memory Recall - fairly good Appetite - good - on 11/08/21 pt weighed 220 lbs and on 04/25/22 he weighed the same Suicidal Thoughts - absent Homicidal Thoughts - absent Delusions - absent Hallucinations - absent Appearance - casually groomed Motor Behavior - calm Eye Contact - intermittent Speech - fluent Mood - not depressed Affect - stable Thought Process - coherent Insight and Judgment - intact Social History Description Last Updated Alcohol use -- He drinks 6-10 beers in a week 02/09/2021 Last Documented On 3 3:04PM ; [facility] Daily coffee consumption - 4 4 oz of Diet Caff Free Mountain Dew daily, no coffee or tea 02/09/2021 Last Documented On 3 3:04PM ; [facility] Alcohol 09/01/2020 Last Documented On 3 3:04PM ; [facility] No work history reported 09/01/2020 Last Documented On 3 3:04PM ; [facility] Tobacco use --chews tobacco - as of 07/23 -- 2 pouches daily 07/24/2019 Last Documented On 3 3:04PM ; [facility] He has 2 sons--Pravin now 18 y /o and Marcus He finally finished his [employer] degree. It took him 3 years to finish it.He denied any history of abuse. No past and pending legal problems. His tenriism background is Zoroastrian 07/16/2018 Last Documented On 3 3:04PM ; [facility] Marital history -- 04/30/2015 Last Documented On 3 3:04PM ; [facility] Not using drugs (Illicit) 06/12/2012 Last Documented On 3 3:04PM ; [facility] Smoking Status Unknown Procedures and Surgical History Includes: Procedures from this encounter Procedures Code Diagnosis Performing Provider Service L ocation Service Date education and instructions Last Documented On 3 3:04PM ; [facility] dangerousness assessment: suicide risk -not suic idal 3085F Last Documented On 3 3:04PM ; [facility] use of tobacco assessment performed 1000F Last Documented On 3 3:05PM ; [facility] patient screened for future fall risk - no recen t falls 3288F Last Documented On 3 3:05PM ; [facility] review of medications documented 1160F Last Documented On 3 3:05PM ; [facility] screening for adult depressi on: impression and score - please see above treatment and PHQ score Last Documented On 3 3:05PM ; [facility] standardized depression screening: posit ciarra for symptoms Last Documented On 3 3:05PM ; [facility] encouragement to exercise Last Documented On 3 3:04PM ; [facility] Clinical summary provided to patient Last Documented On 3 3:04PM ; [facility] PHQ-9: total score 3 Last Documented On 3 3:51PM ; [facility] Surgical History Last Updated History of arthrodesis of a hand joint - fusion of left second and third finger joints after reattachment surgery 02/09/[address] Childs 02/09/2019 Last Documented On 3 3:04PM ; [facility] History of surgery of the right knee 10/1211/28/2014 Last Documented On 3 3:04PM ; [facility] History of nasal septal deviation repair 10/15/13 11/28/2014 Last Documented On 3 3:04PM ; [facility] Medical History Includes: Medical History addressed during this encounter Description Last Updated History of coronavirus 2019- nCoV vaccine - Pfizer #1 and #2 06/2020 #3 06/202111/08/2021 Last Documented On 3 3:04PM ; [facility] History of dermatitis - of t he ear -- given Fluocinonide 0.05% soln 09/03/20 02/09/2021 Last Documented On 3 3:04PM ; [facility] History of acute suppurative sinusitis - given Augmentin 875 mg 01/14/21 02/09/2021 Last Documented On 3 3:04PM ; [facility] History of tinea pedis - given Ketoconaz ole 2% cream 05/29/19 07/24/2019 Last Documented On 3 3:04PM ; [facility] History of hypersomnia - tom e sleep study done last 07/12/17 and did not show CECE but Nuvigil really helped improve mental alertness 02/09/2019 Last Documented On 3 3:04PM ; [facility] 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 Dr. Childs reattached them at [place] -- 02/09/18 fusion of left 2nd and 3rd fingers after reattachment surgery by Dr. Childs -- developed infection -- 02/16/18 prescribed Augmentin 875mg and on 02/09/18 keflex 500mg 02/09/2019 Last Documented On 3 3:04PM ; [facility] History of deviated nasal septum (acquir ed) 05/24/2014 Last Documented On 3 3:04PM ; [facility] History of vitamin D deficiency 05/25/19 15 Last Documented On 3 3:04PM ; [facility] History of hyperlipidemia 06/07/2013 Last Documented On 3 3:04PM ; [facility] Primary Care Provider: Dr. Haseeb frances 06/12/2012 Last Documented On 3 3:04PM ; [facility] History of ankylosing spondylitis 2012 Last Documented On 3 3:04PM ; [facility] Family History Includes: Family History addressed during this encounter Description Last Updated Maternal grandfather's history of alcoho lism -- grandfather 11/28/2014 Last Documented On 3 3:04PM ; [facility] Fraternal history of bipolar disorder NO S -- brother Galo 05/24/2014 Last Documented On 3 3:04PM ; [facility] Fraternal history of psychia tric disorders -- brother Nnamdi is mentally challenged, h/o brain injury and seizure disorder 05/24/2014 Last Documented On 3 3:04PM ; [facility] Maternal history of hypochondriasis -- m other 05/23/2014 Last Documented On 3 3:04PM ; [facility] Maternal history of anxiety disorder NOS -- mother 05/23/2014 Last Documented On 3 3:04PM ; [facility] Maternal history of depression -- mother 05/23/2014 Last Documented On 3 3:04PM ; [facility] Review of Systems Includes: Review of Systems from this encounter Systemic: Feeling poorly (malaise) - occasionally tired. No fever, no chills, and no night [...] and no excessive sweating. Musculoskeletal: No muscle aches. Pain localized to one or more joints and joint stiffness localized to one or more joints. Neurological: No dizziness, no vertigo, no fainting, and no motor disturbances. Skin: No pruritus. No skin lesions and no rash. Mental Status Includes: Mental Status from this encounter Description Major depression, recurrent Functional Status Includes: Functional Status from this encounter No Functional Status Recorded Physical Exam Includes: Physical Exam from this encounter Allergies Includes: Active Allergies Substance Type Reaction Onset Date Resolved Date Statu s Sulfa Antibiotics Allergy Skin Rashes / Eruption of skin 06/12/2012 Active Last Documented On 10/31/2022 3:07PM ; [facility] Note: Imported from external source. Encounters Encounter Provider Location Date Check-In Time Check-Out Time Diagnosis [facility] METEMILY MAHAJAN MD [facility] 04/25/19 23 3:01PM 11:59PM Major Depression, Recurrent,Gener alized Anxiety Disorder,Vitami n Deficiency,Psyc hophysiological Insomnia,Sleep Disorder Hypersomnia Insurance Includes: Active Insurance Policies Plan Name Member ID Group # Subscriber Relationship Effect ciarra Dates - [employer] [id number] DANE Curtis Clinical Notes Includes: Clinical Notes from this encounter No Clinical Notes Recorded
--- OUTSIDE RECORDS SUMMARY | 2024-07-13 11:53 | XMS_ITS | Clinical Summary ---
Author Organization [facility] Address [address] [place] [address] Phone Care Team Providers Care District Wildlife Manager Name Role Phone JULIO C MAHAJAN MD Unavailable [phone] Reason for Visit and Chief Complaint [Patient Encounter] Problems Includes: Problems addressed during this encounter and other active Problems All Visits Onset Date Resolved Date Provider Condition S tatus Generalized Anxiety Disorder 08/11/2022 JULIO C MAHAJAN MD Active Last Documented On 3 6:32PM ; [facility] Panic Disorder 08/11/2022 JULIO C Stewart Active Last Documented On 3 6:33PM ; [facility] 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 Last Documented On 3 5:53PM ; [facility] Note: - hypofunction Psychophysiological Insomnia 05/11/2018 Active Last Documented On 3 5:52PM ; [facility] Sleep Disorder Hypersomnia 10/11/2017 Active Last Documented On 3 5:51PM ; [facility] Hyperlipidemia 05/27/2016 Active Last Documented On 3 5:50PM ; [facility] Vitamin Deficiency 02/10/2014 Active Last Documented On 3 5:48PM ; [facility] Ankylosing spondylitis of unspecified sites in spine 06/12 Active Last Documented On 3 5:48PM ; [facility] Major Depression Recurrent Mild 06/12/2012 MAI MAHAJAN MD Active Last Documented On 3 3:12PM ; [facility] Plan of Treatment No Plan of Treatment Recorded Assessments Includes: Assessments from this encounter No Assessments Recorded Medical Equipment - Implanted Devices Includes: Current Devices No Medical Equipment Recorded Medications Includes: Medications discussed during this encounter and other current Medications Discontinued / Stopped on this date JULIO C MAHAJAN MD on 03/02/2020 KlonoPIN 0.5 MG OR TABS Provider: MAI MAHAJAN MD Diagnosis: Psychophysiologi c insomnia Last Documented On 07/09/2022 5:36PM By Whitley Mahajan MD ; [facility] Current Medications (continue as prescribed) Escitalopram Oxalate 20 MG Oral Tablet 06/02/2023 Provider: JULIO C MAHAJAN MD Diagnosis: Generalized anxi ety disorder TAKE 1 TABLET BY MOUTH DAILY Last Documented On 06/02/2023 8:50AM By Whitley Mahajan MD ; [facility] Levothyroxine Sodium 50 MCG Oral Tablet 05/24/2023 Michelle padilla: JANAE SMALLS MD Diagnosis: Last Documented On 05/30/2023 2:49PM By Whitley Mahajan MD ; [facility] Levothyroxine Sodium 50 MCG Oral Tablet 05/24/2023 Michelle SMALLS MD Diagnosis: 1 tablet every morning Last Documented On 05/30/2023 2:52PM By JUAN CARLOS SANDOVAL ; [facility] Drysol 20% External Solution 07/05/2022 Provider: JANAE SMALLS MD Diagnosis: PRN Last Documented On 10/31/2022 3:08PM By RIK BERGER ; [facility] KlonoPIN 0.5 MG OR TABS 04/25/2022 Provider: MAI MAHAJAN MD Diagnosis: Psychophysiologi c insomnia as directed 1/2 to 1 tablet as needed only for anxiety/sleep Last Documented On 07/09/2022 5:36PM By Whitley Mahajan MD ; [facility] Praluent 75 MG/ML SC SOAJ 05/23/2019 Provider: Diagnosis: 1 injection every two weeks Last Documented On 07/09/2022 5:36PM By RIK BERGER ; [facility] Indomethacin 50 MG OR CAPS 01/26/2018 Provider: Diagnosis: 1 cap bid Last Documented On 07/09/2022 5:36PM By RIK BERGER ; [facility] Medications Administered Includes: Administered Medications from this encounter No Administered Medications Recorded Vital Signs Includes: Vital Signs from this encounter Vital Name 04/25/2022 03:15P Blood Pressure Sitting (mmHg) 138/72 BP Cuff Size Regular Pulse Rate-Sitting (bpm) 77 Pulse Rhythm Regular Height (in) 72 Weight (lb) 220 Body Mass Index 29.8 Body Surface Area (m2) 2.2 Note: self reported vitals Last Documented: On 07/09/2022 6:13PM ; [facility] Results Includes: Results discussed during this encounter [...] Active Last Documented On 10/31/2022 3:07PM ; [facility] Note: Imported from external source. Encounters Encounter Provider Location Date Check-In Time Check-Out Time Diagnosis [Patient Encounter] 04/25/2022 12:00AM 11:59PM Insurance Includes: Active Insurance Policies Plan Name Member ID Group # Subscriber Relationship Effect ciarra Dates 1 - [facility] [employer] [id number] DANE Curtis Clinical Notes Includes: Clinical Notes from this encounter No Clinical Notes Recorded
--- OUTSIDE RECORDS SUMMARY | 2024-07-13 11:53 | XMS_ITS | Clinical Summary ---
Author Organization [facility] Address [address] [place] [address] Phone Care Team Providers Care Psychiatric Aide Name Role Phone JULIO C MAHAJAN MD Unavailable [phone] Reason for Visit and Chief Complaint NO SHOW Problems Includes: Problems addressed during this encounter and other active Problems All Visits Onset Date Resolved Date Provider Condition S tatus Generalized Anxiety Disorder 08/11/2022 JULIO C MAHAJAN MD Active Last Documented On 3 6:32PM ; [facility] Panic Disorder 08/11/2022 JULIO C Stewart Active Last Documented On 3 6:33PM ; [facility] 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 Last Documented On 3 5:53PM ; [facility] Note: - hypofunction Psychophysiological Insomnia 05/11/2018 Active Last Documented On 3 5:52PM ; [facility] Sleep Disorder Hypersomnia 10/11/2017 Active Last Documented On 3 5:51PM ; [facility] Hyperlipidemia 05/27/2016 Active Last Documented On 3 5:50PM ; [facility] Vitamin Deficiency 02/10/2014 Active Last Documented On 3 5:48PM ; [facility] Ankylosing spondylitis of unspecified sites in spine 06/12 Active Last Documented On 3 5:48PM ; [facility] Major Depression Recurrent Mild 06/12/2012 MAI MAHAJAN MD Active Last Documented On 3 3:12PM ; [facility] Plan of Treatment No Plan [...] 06/02/2023 8:50AM By Whitley Mahajan MD ; [facility] Levothyroxine Sodium 50 MCG Oral Tablet 05/24/2023 Michelle SMALLS MD Diagnosis: Last Documented On 05/30/2023 2:49PM By Whitley Mahajan MD ; [facility] Levothyroxine Sodium 50 MCG Oral Tablet 05/24/2023 Michelle SMALLS MD Diagnosis: 1 tablet every morning Last Documented On 05/30/2023 2:52PM By JUAN CARLOS SANDOVAL ; [facility] Drysol 20% External Solution 07/05/2022 Provider: JANAE SMALLS MD Diagnosis: PRN Last Documented On 10/31/2022 3:08PM By RIK BERGER ; [facility] KlonoPIN 0.5 MG OR TABS 04/25/2022 Provider: MAI MAHAJAN MD Diagnosis: Psychophysiologi c insomnia as directed /2 to 1 tablet as needed only for anxiety/sleep Last Documented On 07/09/2022 5:36PM By Whitley Mahajan MD ; [facility] Praluent 75 MG/ML SC SOAJ 05/23/2019 Provider: Diagnosis: 1 injection every two weeks Last Documented On 07/09/2022 5:36PM By RIK BERGER ; [facility] Indomethacin 50 MG OR CAPS 01/26/2018 Provider: Diagnosis: 1 cap bid Last Documented On 07/09/2022 5:36PM By RIK BERGER ; [facility] Medications Administered Includes: Administered Medications from [...] Active Last Documented On 10/31/2022 3:07PM ; [facility] Note: Imported from external source. Encounters Encounter Provider Location Date Check-In Time Check-Out Time Diagnosis NO SHOW JULIO C MAHAJAN MD [facility] 05/01/2023 3:30PM 11:59PM Insurance Includes: Active Insurance Policies Plan Name Member ID Group # Subscriber Relationship Effect ciarra Dates 1 - [facility] [employer] [id number] DANE THAKKAR Self Clinical Notes Includes: Clinical Notes from this encounter No Clinical Notes Recorded
--- OUTSIDE RECORDS SUMMARY | 2024-07-13 11:53 | XMS_ITS | CONTINUITY OF CARE DOCUMENT ---
Author Name adriano oh Address Unknown Organization [facility] Address [address] [place] [address] Phone [phone] Care Team Providers Care Frozen Food Selector Name Role Phone Mindi FLORES, Drew Unavailable [phone] JANAE SMALLS MD Unavailable [phone] SERINA FLORES, JANAE Unavailable PROBLEMS Condition Status Date Provider Notes Cardiovascular screening active Karyn Meneses INSURANCE PROVIDERS Payer name Policy type / Coverage type [place] [employer] party ID SELF PAY TREATMENT PLAN Date Name CT, Coronary Calcium Score HISTORY OF PROCEDURES Procedure Date Procedure Name Provider Procedure Notes S tatus CT- Coronary CA score Drew Obregno MD completed
--- OUTSIDE RECORDS SUMMARY | 2024-07-13 11:53 | XMS_ITS | Clinical Summary ---
Author Organization [facility] Address [address] [place] [address] Phone Care Team Providers Care Department Store General Manager Name Role Phone JULIO C MAHAJAN MD Unavailable [phone] Reason for Visit and Chief Complaint The Chief Complaint is: follow up for anxiety and depression Problems Includes: Problems addressed during this encounter and other active Problems Current Visit Onset Date Resolved Date Provider Conditio n Status Generalized Anxiety Disorder 08/11/2022 JULIO C MAHAJAN MD Active Last Documented On 3 6:32PM ; [facility] Panic Disorder 08/11/2022 JULIO C Stewart Active Last Documented On 3 6:33PM ; [facility] Psychophysiological Insomnia 05/11/2018 Active Last Documented On 3 5:52PM ; [facility] Major Depression Recurrent Mild 06/12/2012 MAI MAHAJAN MD Active Last Documented On 3 3:12PM ; [facility] Past Visits Onset Date Resolved Date Provider Condition Status 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 Last Documented On 07/09/2022 5:53PM ; [facility] Note: - hypofunction Sleep Disorder Hypersomnia 10/11/2017 Active Last Documented On 3 5:51PM ; [facility] Hyperlipidemia 05/27/2016 Active Last Documented On 3 5:50PM ; [facility] Vitamin Deficiency 02/10/2014 Active Last Documented On 3 5:48PM ; [facility] Ankylosing spondylitis of unspecified sites in spine 06/12 Active Last Documented On 3 5:48PM ; [facility] Plan of Treatment Major Depressive Disorder - [...] only for anxiety/sleep - Last Documented On 06/12/2023 8:26AM ; [facility] Education and Decision Aids were provided during visit for: Calming techniques such as b reathing exercises/meditation and other relaxation techniques Last Documented On 8:24AM ; [facility] Assessments Includes: Assessments from this encounter Findings - Mild recurrent major depression - Last Documented On 06/12/2023 8:26AM ; [facility] - Psychophysiological insomnia - Last Documented On 06/12/2023 8:26AM ; [facility] - Generalized anxiety disorder - Last Documented On 06/12/2023 8:26AM ; [facility] - Panic disorder - Last Documented On 06/12/2023 8:26AM ; [facility] Instructions Includes: Instructions from this encounter Education and Decision Aids were provided during visit for: Calming techniques such as b reathing exercises/meditation and other relaxation techniques Last Documented On 4 8:24AM ; [facility] Medical Equipment - Implanted Devices Includes: Current Devices No Medical Equipment Recorded Medications Includes: Medications discussed during this encounter and other current Medications Current Medications (continue as prescribed) Escitalopram Oxalate 20 MG Oral Tablet 06/02/2023 Provider: JULIO C MAHAJAN MD Diagnosis: Generalized anxi ety disorder TAKE 1 TABLET BY MOUTH DAILY Last Documented On 06/02/2023 8:50AM By Whitley Mahajan MD ; [facility] Levothyroxine Sodium 50 MCG Oral Tablet 05/24/2023 Michelle SMALLS MD Diagnosis: Last Documented On 05/30/2023 2:49PM By Whitley Mahajan MD ; [facility] Levothyroxine Sodium 50 MCG Oral Tablet 05/24/2023 Michelle SMALLS MD Diagnosis: 1 tablet every morning Last Documented On 05/30/2023 2:52PM By JUAN CARLOS SANDOVAL ; [facility] Drysol 20% External Solution 07/05/2022 Provider: HASEEB SMALLS MD Diagnosis: PRN Last Documented On 10/31/2022 3:08PM By RIK BERGER ; [facility] KlonoPIN 0.5 MG OR TABS 04/25/2022 Provider: MAI MAHAJAN MD Diagnosis: Psychophysiologi c insomnia as directed 1/2 to 1 tablet as needed only for anxiety/sleep Last Documented On 07/09/2022 5:36PM By Whitley Mahajan MD ; [facility] Praluent 75 MG/ML SC SOAJ 05/23/2019 Provider: Diagnosis: 1 injection every two weeks Last Documented On 07/09/2022 5:36PM By RIK BERGER ; [facility] Indomethacin 50 MG OR CAPS 01/26/2018 Provider: Diagnosis: 1 cap bid Last Documented On 07/09/2022 5:36PM By RIK BERGER ; [facility] Medications Administered Includes: Administered Medications from this encounter No Administered Medications Recorded Vital Signs Includes: Vital Signs from this encounter Vital Name 05/30/2023 02:51P Blood Pressure Sitting (mmHg) 122/79 BP Cuff Size Regular Pulse Rate-Sitting (bpm) 71 Pulse Rhythm Regular Height (in) 72 Weight (lb) 220 Body Mass Index 29.8 Body Surface Area 2.2 Note: Vitals are self-repo rted by patient Last Documented: On 05/30/2023 2:52PM ; [facility] Results Includes: Results discussed during this encounter No Results Recorded For Specified Dates History of Present Illness Includes: History of Present Illness from this encounter HPI GETACHEW THAKKAR is a 53 year old male. - Allergy list reviewed - Past medical history reviewed - Medication list reviewed - Current/previous labs reviewed - labs done 03/2023 showed TSH 6.89 and after Levothyroxine it went down to 3.0 Getachew reported that he has been coping with his day to day stress. He reported last year about his excessive daytime tiredness and sleepiness. He was also have difficulty losing weight because he has gained some weight. He was overeating and just not motivated. He felt like he wants to take a nap when it is about two or three in the afternoon and so I did a lab work up for him which included thyroid level, metabolic panel and vitamin levels including his serum testosterone level. I detected that he had high TSH and has hypothyroidism and I recommended that he takes a thyroid supplement and so his labs back then were faxed to his primary care physician Dr. Haseeb Smalls who initially gave Levothyroxine but somehow after a month it was discontinued since he repeated the TSH and was supposedly normal; however, this past year he is back to feeling tired again, not being able to lose the weight and so his thyroid panel was repeated and showed that he has high TSH and has hypothyroidism and so he was then given Levothyroxine 50 mcg once a day and it seems to help him so now he is able to manage his weight. He has been more motivated. He has not been as tired. He denied feeling depressed. He has not been as anxious. He has not used the Klonopin for quite some time. He expressed appreciation for doing the initial work up and he thought that I was the one who discovered his hypothyroidism because I ordered the labs for him. He said that he will just have to be proactive in asking his primary care physician to make sure that his TSH or thyroid function be checked every 6 months to make sure that he is in a normal therapeutic level. He said that he has been compliant in taking his Lexapro 20 mg once a day which he knows is a maintenance therapy for his mood and anxiety. He denied having any panic attacks. Sleep and appetite are good. He is able to focus and concentrate. He has not been tired. He denied having any suicidal thoughts. No delusions or hallucinations. He denied having any mood swings. MENTAL STATUS EXAM: Sensorium - alert, oriented to name, place, and time Attitude - cooperative Gait - ambulatory Sleep - sleeping better at night, less tired Interest/Energy/Motivation - good Guilt/Worthlessness - absent Concentration/Attention Span - able to focus and concentrate Memory Recall - fairly good Appetite - good - on 10/31/22 pt weighed 220 pounds and current weight is 220 pounds so he stayed the same Suicidal Thoughts - absent Homicidal [...] No past and pending legal problems. His worship background is [employer]. 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 06/02/2023 Last Documented On 4 4:13PM ; [facility] Current smoker -- does not s moke cigarettes -- chews tobacco - 2 pouches daily 05/30/2023 Last Documented On 4 8:26AM ; [facility] Smoking Status Unknown Procedures and Surgical History Includes: Procedures from this encounter Procedures Code Diagnosis Performing Provider Service L ocation Service Date education and instructions Last Documented On 4 2:35PM ; [facility] ~* Call [phone] and /or go t o the nearest emergency room or call me if suicidal/homicidal ideation or other serious concerns arise. ~ ~* I gave instructions to call me should there be any questions or concerns. ~ ~* Patient voiced understanding and agreed to treatment plan Last Documented On 4 2:48PM ; [facility] dangerousness assessment: no suicide risk 3085F Last Documented On 4 2:35PM ; [facility] use of tobacco assessment performed 1000F Last Documented On 4 2:50PM ; [facility] patient screened for future fall risk: documentation of any fall with injury in past year - no recent falls 1100F Last Documented On 4 2:48PM ; [facility] review of medications documented 1160F Last Documented On 4 2:48PM ; [facility] assessment of suicide risk performed - n ot suicidal Last Documented On 4 2:50PM ; [facility] screening for adult depressi on: impression and score - please see above treatment and PHQ score Last Documented On 4 2:50PM ; [facility] standardized depression screening: posit ciarra for symptoms Last Documented On 4 2:50PM ; [facility] encouragement to exercise - balanced liam l plan, low fat low carb diet Last Documented On 4 8:24AM ; [facility] Clinical summary provided to patient Last Documented On 4 2:35PM ; [facility] PHQ-9: total score 0 Last Documented On 4 8:24AM ; [facility] Medical History Includes: Medical History addressed [...] left hand. Dr. Childs reattached them at [place] -- 02/09/18 fusion of left 2nd and 3rd fingers after reattachment surgery by Dr. Childs -- developed infection -- 02/16/18 prescribed Augmentin 875mg and on 02/09/18 keflex 500mgHypothyroidism - is on Levothyroxine 50 mcg once a dayProcedural: Coronavirus 2019-nCoV vaccine - Pfizer #1 and #2 06/2020 #3 olonoscopy - 12/2022 - showed 1 polyp which was benign otherwise negativeSurgical: Nasal septal deviation repair 10/15/13 Arthrodesis of a hand joint - fusion of left second and third finger joints after reattachment surgery 02/09/[address] Childs Surgery of right knee 10/200706/02/2023 Last Documented On 4 4:12PM ; [facility] Family History Includes: Family History addressed during this encounter Description Last Updated Maternal: Depression -- moth er Anxiety disorder NOS -- mother, son Hypochondriasis -- motherMaternal grandfather's: Alcoholism -- grandfatherFraternal: Psychiatric disorders -- brother Nnamdi is mentally challenged, h/o brain injury and seizure disorder Bipolar disorder NOS -- brother Galo 06/02/2023 Last Documented On 4 4:14PM ; [facility] Review of Systems Includes: Review [...] Active Last Documented On 10/31/2022 3:07PM ; [facility] Note: Imported from external source. Encounters Encounter Provider Location Date Check-In Time Check-Out Time Diagnosis TELEHEALTH ADULT PSYCH ESTABLISHED JULIO C MAHAJAN MD [facility] 05/30/19 24 2:33PM 11:59PM Generalized Anxiety Disorder,Major Depression Recurrent Mild,Psychophy siological Insomnia,Panic Disorder Insurance Includes: Active Insurance Policies Plan Name Member ID Group # Subscriber Relationship Effect ciarra Dates 1 - [employer] [id number] GETACHEW THAKKAR Self Clinical Notes Includes: Clinical Notes from this encounter * Progress note Date Encounter Last Documented by 05/30/2023 TELEHEALTH ADULT PSYCH ESTABLISH ED Last documented on 06/12/2023; 8:26 AM, JULIO C MAHAJAN MD; [facility] Top of Document Medication psychotherapy - 30 minutes Patient gave verbal consent for Telehealth 05/30/23 Location of patient: patient's home Location of [...] of Present Illness GETACHEW THAKKAR is a 53 year old male. - Allergy list reviewed - Past medical history reviewed - Medication list reviewed - Current/previous labs reviewed - labs done 03/2023 showed TSH 6.89 and after Levothyroxine it went down to 3.0 Getachew reported that he has been coping with his day to day stress. He reported last year about his excessive daytime tiredness and sleepiness. He was also have difficulty losing weight because he has gained some weight. He was overeating and just not motivated. He felt like he wants to take a nap when it is about two or three in the afternoon and so I did a lab work up for him which included thyroid level, metabolic panel and vitamin levels including his serum testosterone level. I detected that he had high TSH and has hypothyroidism and I recommended that he takes a thyroid supplement and so his labs back then were faxed to his primary care physician Dr. Haseeb Smalls who initially gave Levothyroxine but somehow after a month it was discontinued since he repeated the TSH and was supposedly normal; however, this past year he is back to feeling tired again, not being able to lose the weight and so his thyroid panel was repeated and showed that he has high TSH and has hypothyroidism and so he was then given Levothyroxine 50 mcg once a day and it seems to help him so now he is able to manage his weight. He has been more motivated. He has not been as tired. He denied feeling depressed. He has not been as anxious. He has not used the Klonopin for quite some time. He expressed appreciation for doing the initial work up and he thought that I was the one who discovered his hypothyroidism because I ordered the labs for him. He said that he will just have to be proactive in asking his primary care physician to make sure that his TSH or thyroid function be checked every 6 months to make sure that he is in a normal therapeutic level. He said that he has been compliant in taking his Lexapro 20 mg once a day which he knows is a maintenance therapy for his mood and anxiety. He denied having any panic attacks. Sleep and appetite are good. He is able to focus and concentrate. He has not been tired. He denied having any suicidal thoughts. No delusions or hallucinations. He denied having any mood swings. MENTAL STATUS EXAM: Sensorium - alert, oriented to name, place, and time Attitude - cooperative Gait - ambulatory Sleep - sleeping better at night, less tired Interest/Energy/Motivation - good Guilt/Worthlessness - absent Concentration/Attention Span - able to focus and concentrate Memory Recall - fairly good Appetite - good - on 10/31/22 pt weighed 220 pounds and current weight is 220 pounds so he stayed the same Suicidal Thoughts - absent Homicidal [...] - Escitalopram Oxalate 20 MG Oral Tablet TAKE 1 TABLET BY MOUTH DAILY, 90 days, 0 refills - Indomethacin 50 MG Capsule as directed 1 cap bid, 90 days, 0 refills - KlonoPIN 0.5 MG Tablet as directed as directed 1/2 to 1 tablet as needed only for anxiety/sleep, 30 days, 0 refills - Levothyroxine Sodium 50 MCG Oral Tablet 1 tablet every morning 90 days, 0 refills - Levothyroxine Sodium 50 MCG Oral Tablet 1 tablet every morning, 90 days, 0 refills - Praluent 75 MG/ML [...] left hand. Dr. Childs reattached them at [place] -- 02/09/18 fusion of left 2nd and 3rd fingers after reattachment surgery by Dr. Childs -- developed infection -- 02/16/18 prescribed Augmentin 875mg and on 02/09/18 keflex 500mg Hypothyroidism - is on Levothyroxine 50 mcg once a day Procedural: - Coronavirus 2019-nCoV vaccine - Pfizer #1 and #2 06/2020 #3 06/2021 Colonoscopy - 12/2022 - showed 1 polyp which was benign otherwise negative Surgical: - Nasal septal deviation repair 10/15/13 [...] 07/2019 Social History Tobacco use: Current smoker -- does not smoke cigarettes -- chews tobacco - 2 pouches daily. Caffeine use: Daily coffee consumption - [...] No past and pending legal problems. His worship background is [employer]. 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 Physical Findings - Vitals taken 05/30/2023 02:51 pm Vitals are self-reported by patient BP-Sitting 122/79 mmHg BP Cuff Size Regular Pulse Rate-Sitting 71 bpm Pulse Rhythm Regular Height 72 in Weight 220 lbs Body Mass Index 29.8 kg/m2 Body Surface Area 2.2 m2 Tests Educational Testing: Questionnaires PHQ-9: Value PHQ-9: total score 0 Assessment - Mild recurrent major depression - Psychophysiological insomnia - Generalized anxiety disorder - Panic disorder Therapy - Dangerousness assessment: no suicide risk. - Encouragement to exercise - balanced meal plan, low fat low carb diet. - Education and instructions. - Assessment of suicide risk performed - not suicidal - Clinical summary provided to patient. * Call [phone] and /or go to the nearest emergency room or call me if suicidal/homicidal ideation or other serious concerns arise. * I gave instructions to call me should there be any questions or concerns. * Patient voiced understanding and agreed to treatment plan. Counseling/Education - Supportive care and encouragement--given positive reinforcement to keep patient motivated and active - Calming techniques such as breathing exercises/meditation and other relaxation techniques Plan StartCited - Other Follow-up 05/27/24 EndCited Major Depressive Disorder - Lexapro 20 [...] - please see above treatment and PHQ score.
--- OUTSIDE RECORDS SUMMARY | 2024-07-13 11:53 | XMS_ITS | Clinical Summary ---
Author Organization [facility] Address [address] [place] [phone] Phone Care Team Providers Care Lie Detector Operator Name Role Phone JULIO C MAHAJAN MD Unavailable [phone] Reason for Visit and Chief Complaint The Chief Complaint is: follow up for anxiety and depression Problems Includes: Problems addressed during this encounter and other active Problems Current Visit Onset Date Resolved Date Provider Conditio n Status Psychophysiological Insomnia 05/11/2018 JULIO C MAHAJAN MD Active Last Documented On 9 7:41AM ; [facility] Sleep Disorder Hypersomnia 10/11/2017 JULIO C MAHAJAN MD Active Last Documented On 8 7:36AM ; [facility] Vitamin Deficiency 02/10/2014 JULIO C RUSH MD Inactive Last Documented On 11/27/2014 3:20PM ; [facility] Note: Vitamin D deficiency Vitamin Deficiency 02/10/2014 JULIO C RUSH MD Active Last Documented On 7 4:32PM ; [facility] Generalized Anxiety Disorder 06/12/2012 JULIO C MAHAJAN MD Inactive Last Documented On 5 3:15PM ; [facility] Generalized Anxiety Disorder 06/12/2012 JULIO C MAHAJAN MD Active Last Documented On 1 8:57AM ; [facility] Major Depression, Recurrent 06/12/2012 JULIO C MAHAJAN MD Inactive Last Documented On 5 3:16PM ; [facility] Past Visits Onset Date Resolved Date Provider Condition Status Hypothyroidism 01/11/2021 JULIO C Stewart Active Last Documented On 1 10:59AM ; [facility] 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 JULIO C RUSH MD Active Last Documented On 1 10:58AM ; [facility] Note: - hypofunction Hyperlipidemia 05/27/2016 JULIO C Stewart Active Last Documented On 7 4:10PM ; [facility] Ankylosing spondylitis of un specified sites in spine 06/12/2012 JULIO C MAHAJAN MD Active Last Documented On 5 3:17PM ; [facility] Major depressive disorder, recurrent, mild 06/12/2012 JULIO C MAHAJAN MD Active Last Documented On 5 3:16PM ; [facility] Plan of Treatment Major Depressive Disorder [...] only for anxiety/sleep - Last Documented On 12/09/2021 11:52AM ; [facility] Pending Tests Order Diagnosis Results Due Ordering P rovider Lab TSH 02/23/21 JULIO C CHEN MD Last Documented On 1 11:01AM ; [facility] Lab FREE T4 02/23/21 JULIO C CHEN MD Last Documented On 1 11:01AM ; [facility] Lab SERUM TESTOSTERONE 02/23/21 WARREN MAHAJAN MD Last Documented On 1 11:01AM ; [facility] Lab PSA 02/23/21 JULIO C CHEN MD Last Documented On 1 11:01AM ; [facility] Lab VITAMIN D 02/23/21 JULIO C CHEN MD Last Documented On 2 10:15PM ; [facility] Instructions to patient Lose weight Last Documented On 2 3:16PM ; [facility] Education and Decision Aids were provided during visit for: Patient education about medi cation --- I educated patient on medication(s) and diagnosis. I reviewed the risks, benefits and side effects of patient's medications Last Documented On 2 3:12PM ; [facility] Discussed calming techniques such as breathing exercises and other relaxation techniques Last Documented On 2 3:12PM ; [facility] Counseling for nutrition/martha ght management provided Last Documented On 2 3:16PM ; [facility] Assessments Includes: Assessments from this encounter Findings - Vitamin deficiency - Last Documented On 12/09/2021 11:52AM ; [facility] - Major depression, recurrent - Last Documented On 12/09/2021 11:52AM ; [facility] - Psychophysiological insomnia - Last Documented On 12/09/2021 11:52AM ; [facility] - Hypersomnia - Last Documented On 12/09/2021 11:52AM ; [facility] - Generalized anxiety disorder - Last Documented On 12/09/2021 11:52AM ; [facility] Instructions Includes: Instructions from this encounter Instructions to patient Lose weight Last Documented On 2 3:16PM ; [facility] Education and Decision Aids were provided during visit for: Patient education about medi cation --- I educated patient on medication(s) and diagnosis. I reviewed the risks, benefits and side effects of patient's medications Last Documented On 2 3:12PM ; [facility] Discussed calming techniques such as breathing exercises and other relaxation techniques Last Documented On 2 3:12PM ; [facility] Counseling for nutrition/martha ght management provided Last Documented On 2 3:16PM ; [facility] Medical Equipment - Implanted Devices Includes: Current Devices No Medical Equipment Recorded Medications Includes: Medications discussed during this encounter and other current Medications Discontinued / Stopped on this date HASEEB SMALLS MD on 04/07/2021 Levothyroxine Sodium 100 MCG Oral Tablet Provider: HASEEB SMALLS MD Diagnosis: Last Documented On 11/08/2021 3:38PM By Whitley Mahajan MD ; [facility] Trintellix 10 MG Oral Tablet Provider: JULIO C MAHAJAN MD Diagnosis: Generalized anxi ety disorder Last Documented On 11/08/2021 3:38PM By Whitley Mahajan MD ; [facility] Amoxicillin 500 MG Oral Capsule Provider: Diagnosis: Last Documented On 11/08/2021 3:36PM By Whitley Mahajan MD ; [facility] Vitamin D (Ergocalciferol) 1.25 MG (25356 UT) Oral Capsule Provider: JULIO C MAHAJAN MD Diagnosis: Vitamin deficien cy, unspecified Last Documented On 11/08/2021 3:38PM By Whitley Mahajan MD ; [facility] Trintellix 20 MG Oral Tablet Provider: JULIO C MAHAJAN MD Diagnosis: Major depressive disorder, recurrent, mild Last Documented On 11/08/2021 3:38PM By Whitley Mahajan MD ; [facility] Drysol 20% External Solution Provider: HASEEB SMALLS MD Diagnosis: Last Documented On 11/08/2021 3:38PM By Whitley Mahajan MD ; [facility] Armodafinil 250 MG Oral Tablet Provider: JULIO C MAHAJAN MD Diagnosis: Hypersomnia, uns pecified Last Documented On 11/08/2021 3:36PM By Whitley Maahjan MD ; [facility] Dialyvite Vitamin D3 Max [id number] Oral Tablet Provider: JULIO C Caraballo MD Diagnosis: Vitamin D defici ency, unspecified Last Documented On 11/08/2021 3:37PM By Whitley Mahajan MD ; [facility] Current Medications (continue as prescribed) KlonoPIN 0.5 MG Oral Tablet 04/25/2022 Provider: JULIO C MAHAJAN MD Diagnosis: Psychophysiologi c insomnia as directed 1/2 to 1 tablet as needed only for anxiety/sleep Last Documented On 04/25/2022 3:52PM By Whitley Mahajan MD ; [facility] Escitalopram Oxalate 20 MG Oral Tablet 12/23/2021 Provider: JULIO C MAHAJAN MD Diagnosis: Generalized anxi ety disorder One tablet daily Last Documented On 10:15AM By Whitley Mahajan MD ; [facility] Praluent 75 MG/ML Subcutaneo us Solution Auto-injector 05/23/2019 Provider: HASEEB SMALLS MD Diagnosis: 1 injection every two weeks Last Documented On 07/24/2019 3:20PM By RIK BERGER ; [facility] Indomethacin 50MG Oral Capsule 01/26/2018 Provider: Diagnosis: 1 cap bid Last Documented On 07/11/2018 2:58PM By RIK BERGER ; [facility] Nuvigil 250MG Oral Tablet 07/04/2017 Provider: JULIO C MAHAJAN MD Diagnosis: Obstructive slee p apnea (adult) (pediatric) as directed --1 tab in am Last Documented On 07/04/2017 4:29PM By Whitley Mahajan MD ; [facility] Medications Administered Includes: Administered Medications from this encounter No Administered Medications Recorded Vital Signs Includes: Vital Signs from this encounter Vital Name 11/08/2021 03:17P Blood Pressure Sitting (mmHg) 121/80 BP Cuff Size Regular Pulse Rate-Sitting (bpm) 72 Pulse Rhythm Regular Height (in) 72 Weight (lb) 220 Body Mass Index (kg/m2) 29.8 Body Surface Area (m2) 2.2 Note: Vitals are self-repo rted by patient Last Documented: On 11/08/2021 3:17PM ; [facility] Results Includes: Results discussed during this encounter No Results Recorded For Specified Dates History of Present Illness Includes: History of Present Illness from this encounter POOL THAKKAR is a 51 year old male. - Past medical history reviewed - Medication list reviewed This visit was conducted with use of interactive audio and video telecommunication system with real time communication between the patient and the provider. Patient consent for virtual visit obtained today. Total time spent with patient via audio and video telecommunication 30 minutes. MENTAL STATUS EXAM: Sensorium - alert, oriented to name, place, and time Attitude - cooperative Gait - ambulatory Sleep - good Interest/Energy/Motivation - good Guilt/Worthlessness - absent Concentration/Attention Span - able to focus and concentrate Memory Recall - fairly good Appetite - good, on 04/26/21 pt weighed 222 pounds and current weight is 220 pounds so he lost 2 pounds Suicidal Thoughts - absent Homicidal Thoughts - absent Delusions - absent Hallucinations - absent Appearance - casually groomed Motor Behavior - calm Eye Contact - intermittent Speech - fluent Mood - not depressed Affect - stable Thought Process - coherent Insight and Judgment - intact Social History Description Last Updated Chewing tobacco 04/26/2021 Last Documented On 2 3:11PM ; [facility] Alcohol use -- He drinks 6-10 beers in a week 02/09/2021 Last Documented On 2 3:11PM ; [facility] Daily coffee consumption - 4 4 oz of Diet Caff Free Mountain Dew daily, no coffee or tea 02/09/2021 Last Documented On 2 3:11PM ; [facility] Alcohol 09/01/2020 Last Documented On 2 3:11PM ; [facility] Lives with spouse 09/01/2020 Last Documented On 2 3:11PM ; [facility] No work history reported 09/01/2020 Last Documented On 2 3:11PM ; [facility] Smoker - chews 2 pouches daily 0 Last Documented On 2 3:11PM ; [facility] Tobacco use --chews tobacco - as of 07/23 -- 2 pouches daily 07/24/2019 Last Documented On 2 3:11PM ; [facility] He has 2 sons--Pravin now 18 y /o and Marcus He finally finished his [employer] degree. It took him 3 years to finish it.He denied any history of abuse. No past and pending legal problems. His pentecostalism background is [employer] 07/16/2018 Last Documented On 2 3:11PM ; [facility] Marital history -- 04/30/2015 Last Documented On 2 3:11PM ; [facility] Not using drugs (Illicit) 06/12/2012 Last Documented On 2 3:11PM ; [facility] Smoking Status Unknown Procedures and Surgical History Includes: Procedures from this encounter Procedures Code Diagnosis Performing Provider Service L ocation Service Date education and instructions Last Documented On 2 3:12PM ; [facility] I explained the rationale fo r the medication choices and discussed the possible risks, benefits, side effects and alternative treatment options (including no treatment). ~ I recommended a healthy balanced diet and exercise as tolerated and approved by their primary care physician. ~ I recommended that the patient cut back on caffeine and/or avoid caffeine. ~ I recommended that the patient avoid nicotine, alcohol, and illicit substances since these can be detrimental to one's health and that these cannot be combined with psychotropic medications. ~ I discussed about safety plan i.e., to call 911 and /or go to the nearest emergency room or call me if suicidal/homicidal ideation or other serious concerns arise. ~ I gave instructions to call me should there be any questions or concerns. ~ The patient verbalized understanding and agreed to treatment plan Last Documented On 2 3:12PM ; [facility] dangerousness assessment: suicide risk - not sisi cidal 3085F Last Documented On 2 3:17PM ; [facility] use of tobacco assessment performed 1000F Last Documented On 2 3:16PM ; [facility] patient screened for future fall risk - no recen t falls 3288F Last Documented On 2 3:16PM ; [facility] review of medications documented 1160F Last Documented On 2 3:16PM ; [facility] screening for adult depressi on: impression and score - please see above treatment and PHQ score Last Documented On 2 3:16PM ; [facility] standardized depression screening: posit ciarra for symptoms Last Documented On 2 3:16PM ; [facility] encouragement to exercise Last Documented On 2 3:16PM ; [facility] Clinical summary provided to patient Last Documented On 2 3:16PM ; [facility] PHQ-9: total score Last Documented On 2 3:16PM ; [facility] Surgical History Last Updated History of arthrodesis of a hand joint - fusion of left second and third finger joints after reattachment surgery 02/09/[address] Childs 02/09/2019 Last Documented On 2 3:11PM ; [facility] History of surgery of the right knee 10/1211/28/2014 Last Documented On 2 3:11PM ; [facility] History of nasal septal deviation repair 10/15/13 11/28/2014 Last Documented On 2 3:11PM ; [facility] Medical History Includes: Medical History addressed during this encounter Description Last Updated History of coronavirus 2019- nCoV vaccine - Pfizer #1 and #2 06/2020 #3 06/202111/08/2021 Last Documented On 2 11:52AM ; [facility] History of dermatitis - of t he ear -- given Fluocinonide 0.05% soln 09/03/20 02/09/2021 Last Documented On 2 3:11PM ; [facility] History of acute suppurative sinusitis - given Augmentin 875 mg 01/14/21 02/09/2021 Last Documented On 2 3:11PM ; [facility] History of tinea pedis - given Ketoconaz ole 2% cream 05/29/19 07/24/2019 Last Documented On 2 3:11PM ; [facility] History of hypersomnia - tom e sleep study done last 07/12/17 and did not show CECE but Nuvigil really helped improve mental alertness 02/09/2019 Last Documented On 2 3:11PM ; [facility] 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 Dr. Childs reattached them at [facility] -- 02/09/18 fusion of left 2nd and 3rd fingers after reattachment surgery by Dr. Childs -- developed infection -- 02/16/18 prescribed Augmentin 875mg and on 02/09/18 keflex 500mg 02/09/2019 Last Documented On 2 3:11PM ; [facility] History of deviated nasal septum (acquir ed) 05/24/2014 Last Documented On 2 3:11PM ; [facility] History of vitamin D deficiency 05/25/19 15 Last Documented On 2 3:11PM ; [facility] History of hyperlipidemia 06/07/2013 Last Documented On 2 3:11PM ; [facility] Primary Care Provider: Dr. Haseeb frances 06/12/2012 Last Documented On 2 3:11PM ; [facility] History of ankylosing spondylitis 2012 Last Documented On 2 3:11PM ; [facility] Family History Includes: Family History addressed during this encounter Description Last Updated Maternal grandfather's history of alcoho lism -- grandfather 11/28/2014 Last Documented On 2 3:11PM ; [facility] Fraternal history of bipolar disorder NO S -- brother Galo 05/24/2014 Last Documented On 2 3:11PM ; [facility] Fraternal history of psychia tric disorders -- brother Nnamdi is mentally challenged, h/o brain injury and seizure disorder 05/24/2014 Last Documented On 2 3:11PM ; [facility] Maternal history of hypochondriasis -- m other 05/23/2014 Last Documented On 2 3:11PM ; [facility] Maternal history of anxiety disorder NOS -- mother 05/23/2014 Last Documented On 2 3:11PM ; [facility] Maternal history of depression -- mother 05/23/2014 Last Documented On 2 3:11PM ; [facility] Review of Systems Includes: Review of Systems from this encounter Systemic: Feeling poorly (malaise) feels tired occasionally. No fever, no chills, and no night [...] Active Last Documented On 10/31/2022 3:07PM ; [facility] Note: Imported from external source. Encounters Encounter Provider Location Date Check-In Time Check-Out Time Diagnosis [facility] METEMILY MAHAJAN MD [facility] 11/09/19 3:10PM 11:59PM Major Depression, Recurrent,Gener alized Anxiety Disorder,Vitami n Deficiency,Psyc hophysiological Insomnia,Sleep Disorder Hypersomnia Insurance Includes: Active Insurance Policies Plan Name Member ID Group # Subscriber Relationship Effect ciarra Dates - [employer] [id number] DANE Curtis Clinical Notes Includes: Clinical Notes from this encounter No Clinical Notes Recorded
--- OUTSIDE RECORDS SUMMARY | 2024-07-13 11:53 | XMS_ITS | Clinical Summary ---
Author Organization [facility] Address [address] [place] [address] Phone Care Team Providers Care Student Specialist Name Role Phone JULIO C MAHAJAN MD Unavailable [phone] Reason for Visit and Chief Complaint [Patient Encounter] Problems Includes: Problems addressed during this encounter and other active Problems All Visits Onset Date Resolved Date Provider Condition S tatus Generalized Anxiety Disorder 08/11/2022 JULIO C MAHAJAN MD Active Last Documented On 3 6:32PM ; [facility] Panic Disorder 08/11/2022 JULIO C Stewart Active Last Documented On 3 6:33PM ; [facility] 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 Last Documented On 3 5:53PM ; [facility] Note: - hypofunction Psychophysiological Insomnia 05/11/2018 Active Last Documented On 3 5:52PM ; [facility] Sleep Disorder Hypersomnia 10/11/2017 Active Last Documented On 3 5:51PM ; [facility] Hyperlipidemia 05/27/2016 Active Last Documented On 3 5:50PM ; [facility] Vitamin Deficiency 02/10/2014 Active Last Documented On 3 5:48PM ; [facility] Ankylosing spondylitis of unspecified sites in spine 06/12 Active Last Documented On 3 5:48PM ; [facility] Major Depression Recurrent Mild 06/12/2012 MAI MAHAJAN MD Active Last Documented On 3 3:12PM ; [facility] Plan of Treatment No Plan of Treatment Recorded Assessments Includes: Assessments from this encounter No Assessments Recorded Medical Equipment - Implanted Devices Includes: Current Devices No Medical Equipment Recorded Medications Includes: Medications discussed during this encounter and other current Medications Discontinued / Stopped on this date on 04/07/2021 Levothyroxine Sodium 100 MCG OR TABS Prov ider: Diagnosis: Last Documented On 07/09/2022 5:36PM By JUAN CARLOS SANDOVAL ; [facility] Trintellix 10 MG OR TABS Provider: MET EMILY MAHAJAN MD Diagnosis: Generalized anxi ety disorder Last Documented On 07/09/2022 5:36PM By Whitley Mahajan MD ; [facility] Amoxicillin 500 MG OR CAPS Provider: Diagnosis: Last Documented On 07/09/2022 5:36PM By Whitley Mahajan MD ; [facility] Vitamin D (Ergocalciferol) 1.25 MG (55168 UT) OR CAPS Provider: JULIO C CORNEJO MD Diagnosis: Vitamin deficien cy, unspecified Last Documented On 07/09/2022 5:36PM By Whitley Mahajan MD ; [facility] Trintellix 20 MG OR TABS Provider: MET EMILY MAHAJAN MD Diagnosis: Major depressive disorder, recurrent, mild Last Documented On 07/09/2022 5:36PM By Whitley Mahajan MD ; [facility] Drysol 20% EX SOLN Provider: Diagnosis: Last Documented On 07/09/2022 5:36PM By RIK BERGER ; [facility] Armodafinil 250 MG OR TABS Provider: Smith MAHAJAN MD Diagnosis: Hypersomnia, uns pecified Last Documented On 07/09/2022 5:36PM By Whitley Mahajan MD ; [facility] Dialyvite Vitamin D3 Max 1.25 MG (65760 UT) OR TABS Provider: JULIO C MAHAJAN MD Diagnosis: Vitamin D defici ency, unspecified Last Documented On 07/09/2022 5:36PM By Whitley Mahajan MD ; [facility] Current Medications (continue as prescribed) Escitalopram Oxalate 20 MG Oral Tablet 06/02/2023 Provider: JULIO C MAHAJAN MD Diagnosis: Generalized anxi ety disorder TAKE 1 TABLET BY MOUTH DAILY Last Documented On 06/02/2023 8:50AM By Whitley Mahajan MD ; [facility] Levothyroxine Sodium 50 MCG Oral Tablet 05/24/2023 Michelle padilla: JANAE SMALLS MD Diagnosis: Last Documented On 05/30/2023 2:49PM By Whitley Mahajan MD ; [facility] Levothyroxine Sodium 50 MCG Oral Tablet 05/24/2023 Michelle padilla: JANAE SMALLS MD Diagnosis: 1 tablet every morning Last Documented On 05/30/2023 2:52PM By JUAN CARLOS SANDOVAL ; [facility] Drysol 20% External Solution 07/05/2022 Provider: JANAE SMALLS MD Diagnosis: PRN Last Documented On 10/31/2022 3:08PM By RIK BERGER ; [facility] KlonoPIN 0.5 MG OR TABS 04/25/2022 Provider: MAI MAHAJAN MD Diagnosis: Psychophysiologi c insomnia as directed 1/2 to 1 tablet as needed only for anxiety/sleep Last Documented On 07/09/2022 5:36PM By Whitley Mahajan MD ; [facility] Praluent 75 MG/ML SC SOAJ 05/23/2019 Provider: Diagnosis: 1 injection every two weeks Last Documented On 07/09/2022 5:36PM By RIK BERGER ; [facility] Indomethacin 50 MG OR CAPS 01/26/2018 Provider: Diagnosis: 1 cap bid Last Documented On 07/09/2022 5:36PM By RIK BERGER ; [facility] Medications Administered Includes: Administered Medications from this [...] self-repo rted by patient Last Documented: On 07/09/2022 6:13PM ; [facility] Results Includes: Results discussed during [...] Active Last Documented On 10/31/2022 3:07PM ; [facility] Note: Imported from external source. Encounters Encounter Provider Location Date Check-In Time Check-Out Time Diagnosis [Patient Encounter] 11/08/2021 12:00AM 11:59PM Insurance Includes: Active Insurance Policies Plan Name Member ID Group # Subscriber Relationship Effect ciarra Dates - [facility] [employer] [employer] [id number] DANE Curtis Clinical Notes Includes: Clinical Notes from this encounter No Clinical Notes Recorded
--- OUTSIDE RECORDS SUMMARY | 2024-07-13 11:53 | XMS_ITS | Clinical Summary ---
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 JULIO C MAHAJAN MD Active Last Documented On 1 10:58AM ; [facility] Note: - hypofunction Psychophysiological Insomnia 05/11/2018 JULIO C MAHAJAN MD Active Last Documented On 9 7:41AM ; [facility] Sleep Disorder Hypersomnia 10/11/2017 JULIO C MAHAJAN MD Active Last Documented On 8 7:36AM ; [facility] Hyperlipidemia 05/27/2016 JULIO C Stewart Active Last Documented On 7 4:10PM ; [facility] Vitamin Deficiency 02/10/2014 JULIO C RUSH MD Active Last Documented On 7 4:32PM ; [facility] Ankylosing spondylitis of un specified sites in spine 06/12/2012 JULIO C MAHAJAN MD Active Last Documented On 5 3:17PM ; [facility] Generalized Anxiety Disorder 06/12/2012 JULIO C MAHAJAN MD Active Last Documented On 1 8:57AM ; [facility] Major depressive disorder, recurrent, mild 06/12/2012 JULIO C MAHAJAN MD Active Last Documented On 5 3:16PM ; [facility] Plan of Treatment Pending Tests Order Diagnosis Results Due Ordering P rovider Lab TSH 02/23/21 JULIO C CHEN MD Last Documented On 1 11:01AM ; [facility] Lab FREE T4 02/23/21 JULIO C CHEN MD Last Documented On 1 11:01AM ; [facility] Lab SERUM TESTOSTERONE 02/23/21 WARREN MAHAJAN MD Last Documented On 1 11:01AM ; [facility] Lab PSA 02/23/21 JULIO C CHEN MD Last Documented On 1 11:01AM ; [facility] Lab VITAMIN D 02/23/21 JULIO C CHEN MD Last Documented On 2 10:15PM ; [facility] Assessments Includes: Assessments from this encounter No [...] 04/25/2022 3:36PM By Whitley Mahajan MD ; [facility] Current Medications (continue as prescribed) KlonoPIN 0.5 MG Oral Tablet 04/25/2022 Provider: JULIO C MAHAJAN MD Diagnosis: Psychophysiologi c insomnia as directed 1/2 to 1 tablet as needed only for anxiety/sleep Last Documented On 04/25/2022 3:52PM By Whitley Mahajan MD ; [facility] Escitalopram Oxalate 20 MG Oral Tablet 12/23/2021 Provider: JULIO C MAHAJAN MD Diagnosis: Generalized anxi ety disorder One tablet daily Last Documented On 2 10:15AM By Whitley Mahajan MD ; [facility] Praluent 75 MG/ML Subcutaneo us Solution Auto-injector 05/23/2019 Provider: JANAE SMALLS MD Diagnosis: 1 injection every two weeks Last Documented On 07/24/2019 3:20PM By RIK BERGER ; [facility] Indomethacin 50MG Oral Capsule 01/26/2018 Provider: Diagnosis: 1 cap bid Last Documented On 07/11/2018 2:58PM By RIK BERGER ; [facility] Nuvigil 250MG Oral Tablet 07/04/2017 Provider: JULIO C MAHAJAN MD Diagnosis: Obstructive slee p apnea (adult) (pediatric) as directed --1 tab in am Last Documented On 07/04/2017 4:29PM By Whitley Mahajan MD ; [facility] Medications Administered Includes: Administered Medications [...] Active Last Documented On 10/31/2022 3:07PM ; [facility] Note: Imported from external source. Insurance Includes: Active Insurance Policies Plan Name Member ID Group # Subscriber Relationship Effect ciarra Dates 1 - [employer] [id number] DANE Curtis Clinical Notes Includes: Clinical Notes from this encounter No Clinical Notes Recorded
--- OUTSIDE RECORDS SUMMARY | 2024-07-13 11:53 | XMS_ITS ---
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 JULIO C MAHAJAN MD Active Last Documented On 1 10:58AM ; [facility] Note: - hypofunction Psychophysiological Insomnia 05/11/2018 JULIO C MAHAJAN MD Active Last Documented On 9 7:41AM ; [facility] Sleep Disorder Hypersomnia 10/11/2017 JULIO C MAHAJAN MD Active Last Documented On 8 7:36AM ; [facility] Hyperlipidemia 05/27/2016 JULIO C Stewart Active Last Documented On 7 4:10PM ; [facility] Nicotine Dependence 05/23/2014 JULIO C EDGE MD Inactive Last Documented On 5 3:21PM ; [facility] Note: chewing Nicotine dependence, unspeci fied, uncomplicated 05/23/2014 JULIO C MAHAJAN MD Inactive Last Documented On 5 8:28PM ; [facility] Vitamin Deficiency 02/10/2014 JULIO C RUSH MD Inactive Last Documented On 11/27/2014 3:20PM ; [facility] Note: Vitamin D deficiency Vitamin Deficiency 02/10/2014 JULIO C RUSH MD Active Last Documented On 7 4:32PM ; [facility] Ankylosing Spondylitis 06/12/2012 JULIO C CORNEJO MD Inactive Last Documented On 5 3:17PM ; [facility] Ankylosing spondylitis of un specified sites in spine 06/12/2012 JULIO C MAHAJAN MD Active Last Documented On 5 3:17PM ; [facility] Generalized Anxiety Disorder 06/12/2012 JULIO C MAHAJAN MD Inactive Last Documented On 5 3:15PM ; [facility] Generalized Anxiety Disorder 06/12/2012 JULIO C MAHAJAN MD Active Last Documented On 1 8:57AM ; [facility] Major depressive disorder, recurrent, mild 06/12/2012 JULIO C MAHAJAN MD Active Last Documented On 5 3:16PM ; [facility] Major Depression, Recurrent 06/12/2012 JULIO C MAHAJAN MD Inactive Last Documented On 5 3:16PM ; [facility] Plan of Treatment Pending Tests Order Diagnosis Results Due Ordering P rovider Lab TSH 02/23/21 JULIO C CHEN MD Last Documented On 1 11:01AM ; [facility] Lab FREE T4 02/23/21 JULIO C CHEN MD Last Documented On 1 11:01AM ; [facility] Lab SERUM TESTOSTERONE 02/23/21 WARREN MAHAJAN MD Last Documented On 1 11:01AM ; [facility] Lab PSA 02/23/21 JULIO C CHEN MD Last Documented On 1 11:01AM ; [facility] Lab VITAMIN D 02/23/21 JULIO C CHEN MD Last Documented On 2 10:15PM ; [facility] Referrals To Diagnosis In-Home Sleep Study Obstructive sleep apnea (adult) (pediatric) Last Documented On 8 6:37PM ; [facility] Instructions to patient Lose weight Last Documented On 3 3:13PM ; [facility] Lose weight Last Documented On 2 3:16PM ; [facility] Lose weight - low fat low ca rb diet Last Documented On 2 8:31AM ; [facility] Lose weight -- portion contr ol, avoid bad carbs, healthy meal planning Last Documented On 2 9:37PM ; [facility] Last Documented On 1 3:55PM ; [facility] Intervention and counseling on cessation of tobacco use Last Documented On 0 3:17PM ; [facility] Lose weight Last Documented On 0 3:17PM ; [facility] Intervention and counseling on cessation of tobacco use Last Documented On 0 3:16PM ; [facility] Lose weight Last Documented On 0 2:18PM ; [facility] Intervention and counseling on cessation of tobacco use Last Documented On 9 3:02PM ; [facility] Intervention and counseling on cessation of tobacco use Last Documented On 9 3:06PM ; [facility] Intervention and counseling on cessation of tobacco use Last Documented On 8 4:36PM ; [facility] Education and Decision Aids were provided during visit for: Patient education about medi cation ---Education was given on medication(s) and diagnosis. I reviewed the risks, benefits and side effects of patient's medications Last Documented On 3 3:04PM ; [facility] Discussed calming techniques such as breathing exercises and other relaxation techniques Last Documented On 3 3:04PM ; [facility] Discussed good sleep hygiene habits Last Documented On 3 3:13PM ; [facility] Patient education about medi cation --- I educated patient on medication(s) and diagnosis. I reviewed the risks, benefits and side effects of patient's medications Last Documented On 2 3:12PM ; [facility] Discussed calming techniques such as breathing exercises and other relaxation techniques Last Documented On 2 3:12PM ; [facility] Counseling for nutrition/martha ght management provided Last Documented On 2 3:16PM ; [facility] Patient education about medi cation --- I educated patient on medication(s) and diagnosis. I reviewed the risks, benefits and side effects of patient's medications Last Documented On 2 3:10PM ; [facility] Counseling for nutrition/martha ght management provided Last Documented On 2 3:16PM ; [facility] Patient education about medi cation --- I educated patient on medication(s) and diagnosis. I reviewed the risks, benefits and side effects of patient's medications Last Documented On 1 3:37PM ; [facility] Discussed calming techniques such as breathing exercises and other relaxation techniques Last Documented On 1 3:37PM ; [facility] Counseling for nutrition/martha ght management provided Last Documented On 1 3:45PM ; [facility] Discussed good sleep hygiene habits Last Documented On 1 3:45PM ; [facility] Patient education about medi cation --- I educated patient on medication(s) and diagnosis. I reviewed the risks, benefits and side effects of patient's medications Last Documented On 1 3:42PM ; [facility] Discussed calming techniques such as breathing exercises and other relaxation techniques Last Documented On 1 3:42PM ; [facility] Counseling for nutrition/martha ght management provided Last Documented On 1 3:55PM ; [facility] Discussed good sleep hygiene habits Last Documented On 1 3:55PM ; [facility] Patient education about medi cation --- I educated patient on medication(s) and diagnosis. I reviewed the risks, benefits and side effects of patient's medications Last Documented On 0 3:02PM ; [facility] Discussed calming techniques such as breathing exercises and other relaxation techniques Last Documented On 0 3:02PM ; [facility] Counseling for nutrition/martha ght management provided Last Documented On 0 3:17PM ; [facility] Patient education about a pr oper diet Last Documented On 0 3:16PM ; [facility] Patient education about medi cation --- I educated patient on medication(s) and diagnosis. I reviewed the risks, benefits and side effects of patient's medications Last Documented On 0 3:01PM ; [facility] Discussed calming techniques such as breathing exercises and other relaxation techniques Last Documented On 0 3:01PM ; [facility] Counseling for nutrition/martha ght management provided Last Documented On 0 3:16PM ; [facility] Patient education about a pr oper diet Last Documented On 9 3:20PM ; [facility] Patient education about medi cation --- I educated patient on medication(s) and diagnosis. I reviewed the risks, benefits and side effects of patient's medications Last Documented On 9 3:04PM ; [facility] Discussed calming techniques such as breathing exercises and other relaxation techniques Last Documented On 9 3:04PM ; [facility] Counseling for nutrition/martha ght management provided Last Documented On 9 3:20PM ; [facility] Discussed good sleep hygiene habits Last Documented On 9 3:02PM ; [facility] Patient education about a pr oper diet Last Documented On 9 3:06PM ; [facility] Patient education about medi cation --- I educated patient on medication(s) and diagnosis. I reviewed the risks, benefits and side effects of patient's medications Last Documented On 9 2:51PM ; [facility] Discussed calming techniques such as breathing exercises and other relaxation techniques Last Documented On 9 2:51PM ; [facility] Counseling for nutrition/martha ght management provided Last Documented On 9 3:06PM ; [facility] Discussed good sleep hygiene habits Last Documented On 9 7:45AM ; [facility] Patient education about a pr oper diet Last Documented On 8 4:34PM ; [facility] Patient education about medi cation --- I educated patient on medication(s) and diagnosis. I reviewed the risks, benefits and side effects of patient's medications Last Documented On 8 4:34PM ; [facility] Counseling for nutrition/martha ght management provided Last Documented On 8 7:33AM ; [facility] Discussed good sleep hygiene habits Last Documented On 8 7:33AM ; [facility] Patient education about medi cation --- I educated patient on medication(s) and diagnosis. I reviewed the risks, benefits and side effects of patient's medications Last Documented On 8 3:35PM ; [facility] Discussed calming techniques such as breathing exercises and other relaxation techniques Last Documented On 8 3:35PM ; [facility] Counseling for nutrition/martha ght management provided Last Documented On 8 2:00PM ; [facility] Discussed good sleep hygiene habits Last Documented On 8 2:00PM ; [facility] Patient education about medi cation --- I educated patient on medication(s) and diagnosis. I reviewed the risks, benefits and side effects of patient's medications Last Documented On 7 3:07PM ; [facility] Discussed calming techniques such as breathing exercises and other relaxation techniques Last Documented On 7 3:07PM ; [facility] Counseling for nutrition/martha ght management provided Last Documented On 7 11:23AM ; [facility] Discussed good sleep hygiene habits Last Documented On 7 11:23AM ; [facility] Patient education about medi cation --- I educated patient on medication(s) and diagnosis. I reviewed the risks, benefits and side effects of patient's medications Last Documented On 7 3:35PM ; [facility] Discussed calming techniques such as breathing exercises/meditation and other relaxation techniques Last Documented On 7 3:35PM ; [facility] Counseling for nutrition/martha ght management provided Last Documented On 7 4:29PM ; [facility] Patient education about medi cation --- I educated patient on medication(s) and diagnosis. I reviewed the risks, benefits and side effects of patient's medications Last Documented On 6 3:37PM ; [facility] Discussed calming techniques such as breathing exercises/meditation and other relaxation techniques Last Documented On 6 3:37PM ; [facility] Counseling for nutrition/martha ght management provided Last Documented On 6 5:32PM ; [facility] Patient education about medi cation --- I educated patient on medication(s) and diagnosis. I reviewed the risks, benefits and side effects of patient's medications Last Documented On 6 4:44PM ; [facility] Discussed calming techniques such as breathing exercises/meditation and other relaxation techniques Last Documented On 6 4:44PM ; [facility] Counseling for nutrition/martha ght management provided Last Documented On 6 7:27AM ; [facility] Patient education about medi cation --- I educated patient on medication(s) and diagnosis. I reviewed the risks, benefits and side effects of patient's medications Last Documented On 5 3:12PM ; [facility] Discussed calming techniques such as breathing exercises/meditation and other relaxation techniques Last Documented On 5 3:12PM ; [facility] Patient education about medi cation --- I educated patient on medication(s) and diagnosis. I reviewed the risks, benefits and side effects of patient's medications Last Documented On 5 9:37AM ; [facility] Discussed calming techniques such as breathing exercises/meditation and other relaxation techniques Last Documented On 5 3:38PM ; [facility] Counseling for nutrition/martha ght management provided Last Documented On 5 9:37AM ; [facility] Patient education about medi cation --- I educated patient on medication(s) and diagnosis. I reviewed the risks, benefits and side effects of patient's medications Last Documented On 4 1:41PM ; [facility] Discussed calming techniques such as breathing exercises/meditation and other relaxation techniques Last Documented On 4 3:40PM ; [facility] Patient education about medi cation --- I educated patient on medication(s) and diagnosis. I reviewed the risks, benefits and side effects of patient's medications Last Documented On 4 6:18PM ; [facility] Discussed calming techniques such as breathing exercises/meditation and other relaxation techniques Last Documented On 4 3:47PM ; [facility] Counseling for nutrition/martha ght management provided Last Documented On 4 6:18PM ; [facility] Patient education about medi cation --- I educated patient on medication(s) and diagnosis Last Documented On 3 10:30PM ; [facility] Patient education about adve rse reactions to medication Last Documented On 3 10:30PM ; [facility] Discussed calming techniques such as breathing exercises/meditation and other relaxation techniques Last Documented On 3 3:24PM ; [facility] Counseling for nutrition/martha ght management provided Last Documented On 3 10:30PM ; [facility] Reviewed side effects and Ri sks/Benefits analysis Last Documented On 3 10:30PM ; [facility] Patient education about medi cation --- I educated patient on medication(s) and diagnosis Last Documented On 3 7:03PM ; [facility] Discussed calming techniques such as breathing exercises/meditation and other relaxation techniques Last Documented On 3 3:20PM ; [facility] Patient education about medi cation --- I educated patient on medication(s) and diagnosis Last Documented On 3 5:41PM ; [facility] Discussed calming techniques such as breathing exercises and other relaxation techniques Last Documented On 3 5:24PM ; [facility] Discussed good sleep hygiene habits Last Documented On 3 5:41PM ; [facility] Patient education about medi cation --- I educated patient on medication(s) and diagnosis Last Documented On 3 6:59PM ; [facility] Discussed calming techniques such as yoga meditation to help relieve some anxiety symptoms Last Documented On 3 6:34PM ; [facility] Discussed calming techniques such as breathing exercises and other relaxation techniques Last Documented On 3 6:34PM ; [facility] Discussed good sleep hygiene habits Pt was told to go ahead and discontinue his Remeron since pt is still tossing and turning, will just use Klonopin 0.5 mg prn Last Documented On 3 6:59PM ; [facility] Patient education about medi cation --- I educated patient on medication(s) and diagnosis Last Documented On 3 6:58PM ; [facility] Discussed calming techniques such as yoga meditation to help relieve some anxiety symptoms Last Documented On 3 6:40PM ; [facility] Discussed calming techniques such as breathing exercises and other relaxation techniques Last Documented On 3 6:40PM ; [facility] Discussed good sleep hygiene habits Last Documented On 3 6:58PM ; [facility] Assessments Includes: Assessments for all patient encounters Findings Encounter Date Generalized anxiety disorder TELEHEALTH with MET EMILY MAHAJAN MD 04/25/2022 Last Documented On 3 1:25PM ; [facility] Hypersomnia TELEHEALTH with JULIO C EDGE MD 04/25/2022 Last Documented On 3 1:25PM ; [facility] Major depression, recurrent TELEHEALTH with MAI MAHAJAN MD 04/25/2022 Last Documented On 3 1:25PM ; [facility] Psychophysiological insomnia TELEHEALTH with MET EMILY MAHAJAN MD 04/25/2022 Last Documented On 3 1:25PM ; [facility] Vitamin deficiency TELEHEALTH with JULIO C CORNEJO MD 04/25/2022 Last Documented On 3 1:25PM ; [facility] Generalized anxiety disorder TELEHEALTH with MET EMILY MAHAJAN MD 11/08/2021 Last Documented On 2 11:52AM ; [facility] Hypersomnia TELEHEALTH with JULIO C EDGE MD 11/08/2021 Last Documented On 2 11:52AM ; [facility] Major depression, recurrent TELEHEALTH with MAI MAHAJAN MD 11/08/2021 Last Documented On 2 11:52AM ; [facility] Psychophysiological insomnia TELEHEALTH with MET EMILY MAHAJAN MD 11/08/2021 Last Documented On 2 11:52AM ; [facility] Vitamin deficiency TELEHEALTH with JULIO C CORNEJO MD 11/08/2021 Last Documented On 2 11:52AM ; [facility] Generalized anxiety disorder * PHONE CALL with Smith MAHAJAN MD 06/16/2021 Last Documented On 2 10:45AM ; [facility] Generalized anxiety disorder TELEHEALTH with MET EMILY MAHAJAN MD 04/26/2021 Last Documented On 2 8:32AM ; [facility] Hypersomnia TELEHEALTH with JULIO C EDGE MD 04/26/2021 Last Documented On 2 8:32AM ; [facility] Major depression, recurrent TELEHEALTH with MAI MAHAJAN MD 04/26/2021 Last Documented On 2 8:32AM ; [facility] Psychophysiological insomnia TELEHEALTH with MET EMILY MAHAJAN MD 04/26/2021 Last Documented On 2 8:32AM ; [facility] Vitamin deficiency TELEHEALTH with JULIO C CORNEJO MD 04/26/2021 Last Documented On 2 8:32AM ; [facility] Generalized anxiety disorder * PHONE CALL with Smith MAHAJAN MD 02/26/2021 Last Documented On 1 9:07AM ; [facility] Vitamin deficiency * PHONE CALL with JULIO C MAHAJAN MD 02/26/2021 Last Documented On 1 9:07AM ; [facility] Generalized anxiety disorder TELEHEALTH with MET EMILY MAHAJAN MD 02/09/2021 Last Documented On 2 10:17PM ; [facility] Hypersomnia TELEHEALTH with JULIO C EDGE MD 02/09/2021 Last Documented On 2 10:17PM ; [facility] Hypothyroidism TELEHEALTH with JULIO C EDGE MD 02/09/2021 Last Documented On 2 10:17PM ; [facility] Major depression, recurrent TELEHEALTH with MAI MAHAJAN MD 02/09/2021 Last Documented On 2 10:17PM ; [facility] Psychophysiological insomnia TELEHEALTH with MET EMILY MAHAJAN MD 02/09/2021 Last Documented On 2 10:17PM ; [facility] Testicular failure TELEHEALTH with JULIO C CORNEJO MD 02/09/2021 Last Documented On 2 10:17PM ; [facility] Vitamin deficiency TELEHEALTH with JULIO C CORNEJO MD 02/09/2021 Last Documented On 2 10:17PM ; [facility] Vitamin deficiency TELEHEALTH with JULIO C CORNEJO MD 02/09/2021 Last Documented On 2 10:17PM ; [facility] Generalized anxiety disorder TELEHEALTH with MET EMILY MAHAJAN MD 09/01/2020 Last Documented On 1 8:58AM ; [facility] Hypersomnia TELEHEALTH with JULIO C EDGE MD 09/01/2020 Last Documented On 1 8:58AM ; [facility] Major depression, recurrent TELEHEALTH with MAI MAHAJAN MD 09/01/2020 Last Documented On 1 8:58AM ; [facility] Psychophysiological insomnia TELEHEALTH with MET EMILY MAHAJAN MD 09/01/2020 Last Documented On 1 8:58AM ; [facility] Vitamin deficiency TELEHEALTH with JULIO C CORNEJO MD 09/01/2020 Last Documented On 1 8:58AM ; [facility] Generalized anxiety disorder TELEHEALTH with MET EMILY MAHAJAN MD 01/22/2020 Last Documented On 0 9:51AM ; [facility] Hypersomnia TELEHEALTH with JULIO C EDGE MD 01/22/2020 Last Documented On 0 9:51AM ; [facility] Major depression, recurrent TELEHEALTH with MAI MAHAJAN MD 01/22/2020 Last Documented On 0 9:51AM ; [facility] Psychophysiological insomnia TELEHEALTH with MET EMILY MAHAJAN MD 01/22/2020 Last Documented On 0 9:51AM ; [facility] Vitamin deficiency TELEHEALTH with JULIO C CORNEJO MD 01/22/2020 Last Documented On 0 9:51AM ; [facility] Generalized anxiety disorder TELEHEALTH with MET EMILY MAHAJAN MD 07/24/2019 Last Documented On 0 8:08AM ; [facility] Hypersomnia TELEHEALTH with JULIO C EDGE MD 07/24/2019 Last Documented On 0 8:08AM ; [facility] Major depression, recurrent TELEHEALTH with MAI MAHAJAN MD 07/24/2019 Last Documented On 0 8:08AM ; [facility] Psychophysiological insomnia TELEHEALTH with MET EMILY MAHAJAN MD 07/24/2019 Last Documented On 0 8:08AM ; [facility] Vitamin deficiency TELEHEALTH with JULIO C CORNEJO MD 07/24/2019 Last Documented On 0 8:08AM ; [facility] Generalized anxiety disorder GENERAL OFF ICE VISIT with JULIO C MAHAJAN MD 01/16/2019 Last Documented On 9 3:07PM ; [facility] Hypersomnia GENERAL OFFICE VISIT with WARREN MAHAJAN MD 01/16/2019 Last Documented On 9 3:07PM ; [facility] Major depression, recurrent GENERAL OFFI CE VISIT with JULIO C MAHAJAN MD 01/16/2019 Last Documented On 9 3:07PM ; [facility] Psychophysiological insomnia GENERAL OFF ICE VISIT with JULIO C MAHAJAN MD 01/16/2019 Last Documented On 9 3:07PM ; [facility] Vitamin deficiency GENERAL OFFICE VISIT with MET EMILY MAHAJAN MD 01/16/2019 Last Documented On 9 3:07PM ; [facility] Generalized anxiety disorder GENERAL OFF ICE VISIT with JULIO C MAHAJAN MD 07/11/2018 Last Documented On 9 7:48AM ; [facility] Hypersomnia GENERAL OFFICE VISIT with WARREN MAHAJAN MD 07/11/2018 Last Documented On 9 7:48AM ; [facility] Major depression, recurrent GENERAL OFFI CE VISIT with JULIO C MAHAJAN MD 07/11/2018 Last Documented On 9 7:48AM ; [facility] Psychophysiological insomnia GENERAL OFF ICE VISIT with JULIO C MAHAJAN MD 07/11/2018 Last Documented On 9 7:48AM ; [facility] Vitamin deficiency GENERAL OFFICE VISIT with MET EMILY MAHAJAN MD 07/11/2018 Last Documented On 9 7:48AM ; [facility] Generalized anxiety disorder GENERAL OFF ICE VISIT with JULIO C MAHAJAN MD 01/04/2018 Last Documented On 8 1:53PM ; [facility] Hypersomnia GENERAL OFFICE VISIT with WARREN MAHAJAN MD 01/04/2018 Last Documented On 8 1:53PM ; [facility] Major depression, recurrent GENERAL OFFI CE VISIT with JULIO C MAHAJAN MD 01/04/2018 Last Documented On 8 1:53PM ; [facility] Vitamin deficiency GENERAL OFFICE VISIT with MET EMILY MAHAJAN MD 01/04/2018 Last Documented On 8 1:53PM ; [facility] Generalized anxiety disorder GENERAL OFF ICE VISIT with JULIO C MAHAJAN MD 07/04/2017 Last Documented On 8 2:02PM ; [facility] Major depression, recurrent GENERAL OFFI CE VISIT with JULIO C MAHAJAN MD 07/04/2017 Last Documented On 8 2:02PM ; [facility] Vitamin deficiency GENERAL OFFICE VISIT with MET EMILY MAHAJAN MD 07/04/2017 Last Documented On 8 2:02PM ; [facility] Generalized anxiety disorder GENERAL OFF ICE VISIT with JULIO C MAHAJAN MD 12/09/2016 Last Documented On 7 11:25AM ; [facility] Major depression, recurrent GENERAL OFFI CE VISIT with JULIO C MAHAJAN MD 12/09/2016 Last Documented On 7 11:25AM ; [facility] Vitamin deficiency GENERAL OFFICE VISIT with MET EMILY MAHAJAN MD 12/09/2016 Last Documented On 7 11:25AM ; [facility] Generalized anxiety disorder GENERAL OFF ICE VISIT with JULIO C MAHAJAN MD 05/27/2016 Last Documented On 7 9:39PM ; [facility] Major depression, recurrent GENERAL OFFI CE VISIT with JULIO C MAHAJAN MD 05/27/2016 Last Documented On 7 9:39PM ; [facility] Vitamin deficiency GENERAL OFFICE VISIT with MET EMILY MAHAJAN MD 05/27/2016 Last Documented On 7 9:39PM ; [facility] Generalized anxiety disorder GENERAL OFF ICE VISIT with JULIO C MAHAJAN MD 12/04/2015 Last Documented On 6 5:41PM ; [facility] Major depression, recurrent GENERAL OFFI CE VISIT with JULIO C MAHAJAN MD 12/04/2015 Last Documented On 6 5:41PM ; [facility] Generalized anxiety disorder GENERAL OFF ICE VISIT with JULIO C MAHAJAN MD 04/30/2015 Last Documented On 6 7:30AM ; [facility] Major depression, recurrent GENERAL OFFI CE VISIT with JULIO C MAHAJAN MD 04/30/2015 Last Documented On 6 7:30AM ; [facility] Generalized anxiety disorder GENERAL OFF ICE VISIT with JULIO C MAHAJAN MD 11/28/2014 Last Documented On 5 8:31PM ; [facility] Major depression, recurrent GENERAL OFFI CE VISIT with JULIO C MAHAJAN MD 11/28/2014 Last Documented On 5 8:31PM ; [facility] Generalized anxiety disorder GENERAL OFF ICE VISIT with JULIO C MAHAJAN MD 05/23/2014 Last Documented On 5 10:06AM ; [facility] Major depression, recurrent GENERAL OFFI CE VISIT with JULIO C MAHAJAN MD 05/23/2014 Last Documented On 5 10:06AM ; [facility] Generalized anxiety disorder GENERAL OFF ICE VISIT with JULIO C MAHAJAN MD 11/29/2013 Last Documented On 4 1:42PM ; [facility] Major depression, recurrent GENERAL OFFI CE VISIT with JULIO C MAHAJAN MD 11/29/2013 Last Documented On 4 1:42PM ; [facility] Major depression, recurrent * PHONE CALL with ME JAMAR MAHAJAN MD 08/03/2013 Last Documented On 4 6:27PM ; [facility] Generalized anxiety disorder GENERAL OFF ICE VISIT with JULIO C MAHAJAN MD 06/07/2013 Last Documented On 4 6:24PM ; [facility] Major depression, recurrent GENERAL OFFI CE VISIT with JULIO C MAHAJAN MD 06/07/2013 Last Documented On 4 6:24PM ; [facility] Generalized anxiety disorder GENERAL OFF ICE VISIT with JULIO C MAHAJAN MD 01/04/2013 Last Documented On 3 10:44PM ; [facility] Major depression, recurrent GENERAL OFFI CE VISIT with JULIO C MAHAJAN MD 01/04/2013 Last Documented On 3 10:44PM ; [facility] Generalized anxiety disorder GENERAL OFF ICE VISIT with JULIO C MAHAJAN MD 09/07/2012 Last Documented On 3 7:06PM ; [facility] Major depression, recurrent GENERAL OFFI CE VISIT with JULIO C MAHAJAN MD 09/07/2012 Last Documented On 3 7:06PM ; [facility] Generalized anxiety disorder GENERAL OFF ICE VISIT with JULIO C MAHAJAN MD 07/06/2012 Last Documented On 3 5:54PM ; [facility] Major depression, recurrent GENERAL OFFI CE VISIT with JULIO C MAHAJAN MD 07/06/2012 Last Documented On 3 5:54PM ; [facility] Generalized anxiety disorder GENERAL OFF ICE VISIT with JULIO C MAHAJAN MD 06/20/2012 Last Documented On 3 7:05PM ; [facility] Major depression, recurrent GENERAL OFFI CE VISIT with JULIO C MAHAJAN MD 06/20/2012 Last Documented On 3 7:05PM ; [facility] Generalized anxiety disorder NEW PATIENT VISIT w ith JULIO C MAHAJAN MD 06/12/2012 Last Documented On 3 7:04PM ; [facility] Major depression, recurrent NEW PATIENT VISIT wi th JULIO C MAHAJAN MD 06/12/2012 Last Documented On 3 7:04PM ; [facility] Instructions Includes: Instructions for all patient encounters Instructions to patient Lose weight Last Documented On 3 3:13PM ; [facility] Lose weight Last Documented On 2 3:16PM ; [facility] Lose weight - low fat low ca rb diet Last Documented On 2 8:31AM ; [facility] Lose weight -- portion contr ol, avoid bad carbs, healthy meal planning Last Documented On 2 9:37PM ; [facility] Lose weight Last Documented On 1 3:55PM ; [facility] Intervention and counseling on cessation of tobacco use Last Documented On 0 3:17PM ; [facility] Lose weight Last Documented On 0 3:17PM ; [facility] Intervention and counseling on cessation of tobacco use Last Documented On 0 3:16PM ; [facility] Lose weight Last Documented On 0 2:18PM ; [facility] Intervention and counseling on cessation of tobacco use Last Documented On 9 3:02PM ; [facility] Intervention and counseling on cessation of tobacco use Last Documented On 9 3:06PM ; [facility] Intervention and counseling on cessation of tobacco use Last Documented On 8 4:36PM ; [facility] Education and Decision Aids were provided during visit for: Patient education about medi cation ---Education was given on medication(s) and diagnosis. I reviewed the risks, benefits and side effects of patient's medications Last Documented On 3 3:04PM ; [facility] Discussed calming techniques such as breathing exercises and other relaxation techniques Last Documented On 3 3:04PM ; [facility] Discussed good sleep hygiene habits Last Documented On 3 3:13PM ; [facility] Patient education about medi cation --- I educated patient on medication(s) and diagnosis. I reviewed the risks, benefits and side effects of patient's medications Last Documented On 2 3:12PM ; [facility] Discussed calming techniques such as breathing exercises and other relaxation techniques Last Documented On 2 3:12PM ; [facility] Counseling for nutrition/martha ght management provided Last Documented On 2 3:16PM ; [facility] Patient education about medi cation --- I educated patient on medication(s) and diagnosis. I reviewed the risks, benefits and side effects of patient's medications Last Documented On 2 3:10PM ; [facility] Counseling for nutrition/martha ght management provided Last Documented On 2 3:16PM ; [facility] Patient education about medi cation --- I educated patient on medication(s) and diagnosis. I reviewed the risks, benefits and side effects of patient's medications Last Documented On 1 3:37PM ; [facility] Discussed calming techniques such as breathing exercises and other relaxation techniques Last Documented On 1 3:37PM ; [facility] Counseling for nutrition/martha ght management provided Last Documented On 1 3:45PM ; [facility] Discussed good sleep hygiene habits Last Documented On 1 3:45PM ; [facility] Patient education about medi cation --- I educated patient on medication(s) and diagnosis. I reviewed the risks, benefits and side effects of patient's medications Last Documented On 1 3:42PM ; [facility] Discussed calming techniques such as breathing exercises and other relaxation techniques Last Documented On 1 3:42PM ; [facility] Counseling for nutrition/martha ght management provided Last Documented On 1 3:55PM ; [facility] Discussed good sleep hygiene habits Last Documented On 1 3:55PM ; [facility] Patient education about medi cation --- I educated patient on medication(s) and diagnosis. I reviewed the risks, benefits and side effects of patient's medications Last Documented On 0 3:02PM ; [facility] Discussed calming techniques such as breathing exercises and other relaxation techniques Last Documented On 0 3:02PM ; [facility] Counseling for nutrition/martha ght management provided Last Documented On 0 3:17PM ; [facility] Patient education about a pr oper diet Last Documented On 0 3:16PM ; [facility] Patient education about medi cation --- I educated patient on medication(s) and diagnosis. I reviewed the risks, benefits and side effects of patient's medications Last Documented On 0 3:01PM ; [facility] Discussed calming techniques such as breathing exercises and other relaxation techniques Last Documented On 0 3:01PM ; [facility] Counseling for nutrition/martha ght management provided Last Documented On 0 3:16PM ; [facility] Patient education about a pr oper diet Last Documented On 9 3:20PM ; [facility] Patient education about medi cation --- I educated patient on medication(s) and diagnosis. I reviewed the risks, benefits and side effects of patient's medications Last Documented On 9 3:04PM ; [facility] Discussed calming techniques such as breathing exercises and other relaxation techniques Last Documented On 9 3:04PM ; [facility] Counseling for nutrition/martha ght management provided Last Documented On 9 3:20PM ; [facility] Discussed good sleep hygiene habits Last Documented On 9 3:02PM ; [facility] Patient education about a pr oper diet Last Documented On 9 3:06PM ; [facility] Patient education about medi cation --- I educated patient on medication(s) and diagnosis. I reviewed the risks, benefits and side effects of patient's medications Last Documented On 9 2:51PM ; [facility] Discussed calming techniques such as breathing exercises and other relaxation techniques Last Documented On 9 2:51PM ; [facility] Counseling for nutrition/martha ght management provided Last Documented On 9 3:06PM ; [facility] Discussed good sleep hygiene habits Last Documented On 9 7:45AM ; [facility] Patient education about a pr oper diet Last Documented On 8 4:34PM ; [facility] Patient education about medi cation --- I educated patient on medication(s) and diagnosis. I reviewed the risks, benefits and side effects of patient's medications Last Documented On 8 4:34PM ; [facility] Counseling for nutrition/martha ght management provided Last Documented On 8 7:33AM ; [facility] Discussed good sleep hygiene habits Last Documented On 8 7:33AM ; [facility] Patient education about medi cation --- I educated patient on medication(s) and diagnosis. I reviewed the risks, benefits and side effects of patient's medications Last Documented On 8 3:35PM ; [facility] Discussed calming techniques such as breathing exercises and other relaxation techniques Last Documented On 8 3:35PM ; [facility] Counseling for nutrition/martha ght management provided Last Documented On 8 2:00PM ; [facility] Discussed good sleep hygiene habits Last Documented On 8 2:00PM ; [facility] Patient education about medi cation --- I educated patient on medication(s) and diagnosis. I reviewed the risks, benefits and side effects of patient's medications Last Documented On 7 3:07PM ; [facility] Discussed calming techniques such as breathing exercises and other relaxation techniques Last Documented On 7 3:07PM ; [facility] Counseling for nutrition/martha ght management provided Last Documented On 7 11:23AM ; [facility] Discussed good sleep hygiene habits Last Documented On 7 11:23AM ; [facility] Patient education about medi cation --- I educated patient on medication(s) and diagnosis. I reviewed the risks, benefits and side effects of patient's medications Last Documented On 7 3:35PM ; [facility] Discussed calming techniques such as breathing exercises/meditation and other relaxation techniques Last Documented On 7 3:35PM ; [facility] Counseling for nutrition/martha ght management provided Last Documented On 7 4:29PM ; [facility] Patient education about medi cation --- I educated patient on medication(s) and diagnosis. I reviewed the risks, benefits and side effects of patient's medications Last Documented On 6 3:37PM ; [facility] Discussed calming techniques such as breathing exercises/meditation and other relaxation techniques Last Documented On 6 3:37PM ; [facility] Counseling for nutrition/martha ght management provided Last Documented On 6 5:32PM ; [facility] Patient education about medi cation --- I educated patient on medication(s) and diagnosis. I reviewed the risks, benefits and side effects of patient's medications Last Documented On 6 4:44PM ; [facility] Discussed calming techniques such as breathing exercises/meditation and other relaxation techniques Last Documented On 6 4:44PM ; [facility] Counseling for nutrition/martha ght management provided Last Documented On 6 7:27AM ; [facility] Patient education about medi cation --- I educated patient on medication(s) and diagnosis. I reviewed the risks, benefits and side effects of patient's medications Last Documented On 5 3:12PM ; [facility] Discussed calming techniques such as breathing exercises/meditation and other relaxation techniques Last Documented On 5 3:12PM ; [facility] Patient education about medi cation --- I educated patient on medication(s) and diagnosis. I reviewed the risks, benefits and side effects of patient's medications Last Documented On 5 9:37AM ; [facility] Discussed calming techniques such as breathing exercises/meditation and other relaxation techniques Last Documented On 5 3:38PM ; [facility] Counseling for nutrition/martha ght management provided Last Documented On 5 9:37AM ; [facility] Patient education about medi cation --- I educated patient on medication(s) and diagnosis. I reviewed the risks, benefits and side effects of patient's medications Last Documented On 4 1:41PM ; [facility] Discussed calming techniques such as breathing exercises/meditation and other relaxation techniques Last Documented On 4 3:40PM ; [facility] Patient education about medi cation --- I educated patient on medication(s) and diagnosis. I reviewed the risks, benefits and side effects of patient's medications Last Documented On 4 6:18PM ; [facility] Discussed calming techniques such as breathing exercises/meditation and other relaxation techniques Last Documented On 4 3:47PM ; [facility] Counseling for nutrition/martha ght management provided Last Documented On 4 6:18PM ; [facility] Patient education about medi cation --- I educated patient on medication(s) and diagnosis Last Documented On 3 10:30PM ; [facility] Patient education about adve rse reactions to medication Last Documented On 3 10:30PM ; [facility] Discussed calming techniques such as breathing exercises/meditation and other relaxation techniques Last Documented On 3 3:24PM ; [facility] Counseling for nutrition/martha ght management provided Last Documented On 3 10:30PM ; [facility] Reviewed side effects and Ri sks/Benefits analysis Last Documented On 3 10:30PM ; [facility] Patient education about medi cation --- I educated patient on medication(s) and diagnosis Last Documented On 3 7:03PM ; [facility] Discussed calming techniques such as breathing exercises/meditation and other relaxation techniques Last Documented On 3 3:20PM ; [facility] Patient education about medi cation --- I educated patient on medication(s) and diagnosis Last Documented On 3 5:41PM ; [facility] Discussed calming techniques such as breathing exercises and other relaxation techniques Last Documented On 3 5:24PM ; [facility] Discussed good sleep hygiene habits Last Documented On 3 5:41PM ; [facility] Patient education about medi cation --- I educated patient on medication(s) and diagnosis Last Documented On 3 6:59PM ; [facility] Discussed calming techniques such as yoga meditation to help relieve some anxiety symptoms Last Documented On 3 6:34PM ; [facility] Discussed calming techniques such as breathing exercises and other relaxation techniques Last Documented On 3 6:34PM ; [facility] Discussed good sleep hygiene habits Pt was told to go ahead and discontinue his Remeron since pt is still tossing and turning, will just use Klonopin 0.5 mg prn Last Documented On 3 6:59PM ; [facility] Patient education about medi cation --- I educated patient on medication(s) and diagnosis Last Documented On 3 6:58PM ; [facility] Discussed calming techniques such as yoga meditation to help relieve some anxiety symptoms Last Documented On 3 6:40PM ; [facility] Discussed calming techniques such as breathing exercises and other relaxation techniques Last Documented On 3 6:40PM ; [facility] Discussed good sleep hygiene habits Last Documented On 3 6:58PM ; [facility] Medical Equipment - Implanted Devices Includes: Current and historical Devices No Medical Equipment Recorded Medications Includes: Current and historical Medications Current Medications (continue as prescribed) KlonoPIN 0.5 MG Oral Tablet 04/25/2022 Provider: JULIO C MAHAJAN MD Diagnosis: Psychophysiologi c insomnia as directed 1/2 to 1 tablet as needed only for anxiety/sleep Last Documented On 04/25/2022 3:52PM By Whitley Mahajan MD ; [facility] Escitalopram Oxalate 20 MG Oral Tablet 12/23/2021 Provider: JULIO C MAHAJAN MD Diagnosis: Generalized anxi ety disorder One tablet daily Last Documented On 2 10:15AM By Whitley Mahajan MD ; [facility] Praluent 75 MG/ML Subcutaneo us Solution Auto-injector 05/23/2019 Provider: HASEEB SMALLS MD Diagnosis: 1 injection every two weeks Last Documented On 07/24/2019 3:20PM By RIK BERGER ; [facility] Indomethacin 50MG Oral Capsule 01/26/2018 Provider: Diagnosis: 1 cap bid Last Documented On 07/11/2018 2:58PM By RIK BERGER ; [facility] Nuvigil 250MG Oral Tablet 07/04/2017 Provider: JULIO C MAHAJAN MD Diagnosis: Obstructive slee p apnea (adult) (pediatric) as directed --1 tab in am Last Documented On 07/04/2017 4:29PM By Whitley Mahajan MD ; [facility] Past Medications on file Escitalopram Oxalate 20 MG Oral Tablet 08/27/2021 - 12/23/2021 Provider: JULIO C MAHAJAN MD Diagnosis: Generalized anxi ety disorder One tablet daily Last Documented On 2 10:04AM By Whitley Mahajan MD ; [facility] Escitalopram Oxalate 20 MG Oral Tablet 06/16/2021 - 08/27/2021 Provider: JULIO C MAHAJAN MD Diagnosis: Generalized anxi ety disorder One tablet daily Last Documented On 08/27/2021 9:11AM By Whitley Mahajan MD ; [facility] Levothyroxine Sodium 100 MCG Oral Tablet 04/07/2021 - 11/08/2021 Provider: HASEEB Mejia MD Diagnosis: 1 tablet daily Last Documented On 11/08/2021 3:38PM By Whitley Mahajan MD ; [facility] Trintellix 10 MG Oral Tablet 03/26/2021 - 11/08/2021 Provider: JULIO C MAHAJAN MD Diagnosis: Generalized anxi ety disorder One tablet daily Last Documented On 11/08/2021 3:38PM By Whitley Mahajan MD ; [facility] Amoxicillin 500 MG Oral Capsule 03/25/2021 - Provider: Diagnosis: from Isreal Seamus Last Documented On 11/08/2021 3:36PM By Whitley Mahajan MD ; [facility] Trintellix 10 MG Oral Tablet 03/01/2021 - 03/26/2021 Provider: JULIO C MAHAJAN MD Diagnosis: Generalized anxi ety disorder One tablet daily Last Documented On 10:14AM By Whitley Mahajan MD ; [facility] Vitamin D (Ergocalciferol) 1.25 MG (88558 UT) Oral Capsule 03/01/2021 - 11/08/2021 Provider: JULIO C MAHAJAN MD Diagnosis: Vitamin deficien cy, unspecified as directed -- 1 cap 2 x a w [place] (Sat and Wed) for 4 months then once a week thereafter for 1 year Last Documented On 11/08/2021 3:38PM By Whitley Mahajan MD ; [facility] Trintellix 20 MG Oral Tablet 02/09/2021 - 11/08/2021 Provider: JULIO C MAHAJAN MD Diagnosis: Major depressive disorder, recurrent, mild One tablet daily Last Documented On 11/08/2021 3:38PM By Whitley Mahajan MD ; [facility] Escitalopram Oxalate 20 MG Oral Tablet 10/02/2020 - 06/16/2021 Provider: JULIO C MAHAJAN MD Diagnosis: Major depressive disorder, recurrent, mild One tablet daily Last Documented On 10:24AM By Whitley Mahajan MD ; [facility] Drysol 20% External Solution 09/03/2020 - 11/08/2021 Michelle padilla: HASEBE SMALLS MD Diagnosis: use as directed Last Documented On 11/08/2021 3:38PM By Whitley Mahajan MD ; [facility] Escitalopram Oxalate 20 MG Oral Tablet 03/02/2020 - 10/02/2020 Provider: JULIO C MAHAJAN MD Diagnosis: Major depressive disorder, recurrent, mild One tablet daily Last Documented On 12:20PM By Whitley Mahajan MD ; [facility] KlonoPIN 0.5 MG Oral Tablet 03/02/2020 - 04/25/2022 Provider: JULIO C MAHAJAN MD Diagnosis: Psychophysiologi c insomnia as directed 1/2 to 1 tablet as needed only for anxiety/sleep Last Documented On 04/25/2022 3:36PM By Whitley Mahajan MD ; [facility] Turmeric 500 MG Oral Tablet 01/22/2020 - 02/09/2021 Pr ovider: Diagnosis: 1 tab daily patient's dose is 600 mg Last Documented On 02/09/2021 3:40PM By RIK BERGER ; [facility] Escitalopram Oxalate 20 MG Oral Tablet 09/09/2019 - 03/02/2020 Provider: JULIO C MAHAJAN MD Diagnosis: Major depressive disorder, recurrent, mild One tablet daily Last Documented On 03/02/2020 3:39PM By Whitley Mahajan MD ; [facility] Escitalopram Oxalate 20 MG Oral Tablet 06/10/2019 - 07/24/2019 Provider: JULIO C MAHAJAN MD Diagnosis: Major depressive disorder, recurrent, mild One tablet daily Last Documented On 09/09/2019 8:06AM By Whitley Mahajan MD ; [facility] Armodafinil 250 MG Oral Tablet 02/22/2019 - 11/08/2021 Provider: JULIO C MAHAJAN MD Diagnosis: Hypersomnia, unspecified 1 tablet every morning Last Documented On 11/08/2021 3:36PM By Whitley Mahajan MD ; [facility] Armodafinil 250 MG Oral Tablet 02/21/2019 - 02/22/2019 Provider: JULIO C MAHAJAN MD Diagnosis: Hypersomnia, unspecified 1 tablet every morning Last Documented On 02/22/2019 3:01PM By Whitley Mahajan MD ; [facility] Escitalopram Oxalate 20 MG Oral Tablet 02/21/2019 - 06/10/2019 Provider: JULIO C MAHAJAN MD Diagnosis: Major depressive disorder, recurrent, mild One tablet daily Last Documented On 06/10/2019 2:11PM By Whitley Mahajan MD ; [facility] Escitalopram Oxalate 20 MG Oral Tablet 01/16/2019 - 02/21/2019 Provider: JULIO C MAHAJAN MD Diagnosis: Major depressive disorder, recurrent, mild One tablet daily Last Documented On 9 11:21AM By Whitley Mahajan MD ; [facility] KlonoPIN 0.5 MG Oral Tablet 01/16/2019 - 03/02/2020 Provider: JULIO C MAHAJAN MD Diagnosis: Psychophysiologi c insomnia as directed 1/2 to 1 tablet as needed only for anxiety/sleep Last Documented On 03/02/2020 7:41PM By Whitley Mahajan MD ; [facility] Armodafinil 250 MG Oral Tablet 01/16/2019 - 02/21/2019 Provider: JULIO C MAHAJAN MD Diagnosis: Hypersomnia, unspecified 1 tablet every morning Last Documented On 9 11:18AM By Whitley Mahajan MD ; [facility] Escitalopram Oxalate 20MG Oral Tablet 11/01/2018 - 01/16/2019 Provider: JULIO C MAHAJAN MD Diagnosis: Major depressive disorder, recurrent, mild One tablet daily Last Documented On 01/16/2019 3:37PM By Whitley Mahajan MD ; [facility] Escitalopram Oxalate 20MG Oral Tablet 07/16/2018 - 11/01/2018 Provider: JULIO C MAHAJAN MD Diagnosis: Major depressive disorder, recurrent, mild One tablet daily Last Documented On 9 11:40AM By Whitley Mahajan MD ; [facility] Armodafinil 250MG Oral Tablet 07/16/2018 - 01/16/2019 Provider: JULIO C MAHAJAN MD Diagnosis: Hypersomnia, unspecified 1 tablet every morning as ne eded -- pt used only 4 tabs as of 07/11/18 and it helped Last Documented On 01/16/2019 3:37PM By Whitley Mahajan MD ; [facility] KlonoPIN 0.5MG Oral Tablet 07/16/2018 - 01/16/2019 Provider: JULIO C MAHAJAN MD Diagnosis: Psychophysiologi c insomnia as directed 1/2 to 1 tablet as needed only for anxiety/sleep Last Documented On 01/16/2019 3:42PM By Whitley Mahajan MD ; [facility] KlonoPIN 0.5MG Oral Tablet 07/11/2018 - 07/11/2018 Provider: JULIO C MAHAJAN MD Diagnosis: Generalized anxi ety disorder as directed 1/2 to 1 tablet as needed only for anxiety Last Documented On 07/16/2018 7:47AM By Whitley Mahajan MD ; [facility] Escitalopram Oxalate 20MG Oral Tablet 04/23/2018 - 07/11/2018 Provider: JULIO C MAHAJAN MD Diagnosis: Major depressive disorder, recurrent, mild One tablet daily Last Documented On 07/16/2018 7:47AM By Whitley Mahajan MD ; [facility] Armodafinil 250MG Oral Tablet 01/05/2018 - 07/11/2018 Provider: JULIO C MAHAJAN MD Diagnosis: Hypersomnia, unspecified 1 tablet every morning as needed Last Documented On 07/16/2018 7:47AM By Whitley Mahajan MD ; [facility] Escitalopram Oxalate 20MG Oral Tablet 01/05/2018 - 04/23/2018 Provider: JULIO C MAHAJAN MD Diagnosis: Major depressive disorder, recurrent, mild One tablet daily Last Documented On 04/23/2018 1:18PM By Whitley Mahajan MD ; [facility] Dialyvite Vitamin D3 Max [id number] Oral Tablet 01/05/2018 - 11/08/2021 Provider: JULIO C MAHAJAN MD Diagnosis: Vitamin D defici ency, unspecified as directed -- 1 tab once a week Last Documented On 11/08/2021 3:37PM By Whitley Mahajan MD ; [facility] KlonoPIN 0.5MG Oral Tablet 01/05/2018 - 07/11/2018 Provider: JULIO C MAHAJAN MD Diagnosis: Generalized anxi ety disorder as directed 1/2 to 1 tablet as needed only for anxiety Last Documented On 07/11/2018 4:10PM By Whitley Mahajan MD ; [facility] Lex[facility]ro 20MG Oral Tablet 12/18/2017 - 01/04/2018 Provider: JULIO C EDGE MD Diagnosis: Major depressive disorder, recurrent, unspecified 1tab - 1 tablet in am Last Documented On 01/05/2018 1:51PM By Whitley Mahajan MD ; [facility] KlonoPIN 0.5MG Oral Tablet 07/10/2017 - 01/04/2018 Provider: JULIO C MAHAJAN MD Diagnosis: Generalized anxi ety disorder as directed 1/2 to 1 tablet as needed only for anxiety Last Documented On 01/05/2018 1:51PM By Whitley Mahajan MD ; [facility] Lexapro 20MG Oral Tablet 07/04/2017 - 12/18/2017 Provider: JULIO C EDGE MD Diagnosis: Major depressive disorder, recurrent, unspecified 1tab - 1 tablet in am Last Documented On 12/18/2017 3:57PM By Whitley Mahajan MD ; [facility] [place] 3 1200MG Oral Capsule, conventional 12/09/2016 - 07/24/2019 Provider: HASEEB Mejia MD Diagnosis: 1 daily Last Documented On 07/24/2019 3:12PM By RIK BERGER ; [facility] Turmeric 500MG Oral Tablet 12/09/2016 - 01/22/2020 Pro vider: Diagnosis: 1 three times a day Last Documented On 01/22/2020 3:16PM By RIK BERGER ; [facility] KlonoPIN 0.5MG Oral Tablet 12/09/2016 - 07/04/2017 Provider: JULIO C MAHAJAN MD Diagnosis: Generalized anxi ety disorder as directed 1/2 to 1 tablet as needed only for anxiety Last Documented On 07/10/2017 7:55AM By Whitley Mahajan MD ; [facility] Lex[facility]ro 20MG Oral Tablet 12/09/2016 - 07/04/2017 Provider: JULIO C EDGE MD Diagnosis: Major depressive disorder, recurrent, unspecified 1tab - 1 tablet in am Last Documented On 07/04/2017 4:21PM By Whitley Mahajan MD ; [facility] Lexapro 20MG Oral Tablet 06/13/2016 - 12/09/2016 Provider: JULIO C EDGE MD Diagnosis: Major depressive disorder, recurrent, unspecified 1tab - 1 tablet in am Last Documented On 12/09/2016 4:08PM By Whitley Mahajan MD ; [facility] KlonoPIN 0.5MG Oral Tablet 05/27/2016 - 12/09/2016 Provider: JULIO C MAHAJAN MD Diagnosis: Generalized anxi ety disorder as directed 1/2 to 1 tablet as needed only for anxiety -- has not used except 2 or 3 times last year Last Documented On 12/09/2016 4:08PM By Whitley Mahajan MD ; [facility] Lexapro 20MG Oral Tablet 05/27/2016 - 06/13/2016 Provider: JULIO C EDGE MD Diagnosis: Major depressive disorder, recurrent, unspecified 1tab - 1 tablet in am -- has 40 tabs left as of 05/27/16 Last Documented On 7 11:11AM By Whitley Mahajan MD ; [facility] Lexapro 20 MG Tablet 12/04/2015 - 05/27/2016 Provider: JULIO C MAHAJAN MD Diagnosis: Major depressive disorder, recurrent, unspecified 1tab - 1 tablet in am Last Documented On 05/27/2016 4:27PM By Whitley Mahajan MD ; [facility] KlonoPIN 0.5 MG Tablet 12/04/2015 - 05/27/2016 Provider: JULIO C MAHAJAN MD Diagnosis: Generalized anxi ety disorder as directed 1/2 to 1 tablet as needed only for anxiety Last Documented On 05/27/2016 4:27PM By Whitley Mahajan MD ; [facility] KlonoPIN 0.5 MG Tablet 04/30/2015 - 12/04/2015 Provider: JULIO C MAHAJAN MD Diagnosis: Generalized anxi ety disorder as directed 1/2 to 1 tablet as needed only for anxiety -- used 2 so far Last Documented On 12/04/2015 4:26PM By Whitley Mahajan MD ; [facility] Lexapro 20 MG Tablet 04/30/2015 - 12/04/2015 Provider: JULIO C MAHAJAN MD Diagnosis: Major depressive disorder, recurrent, unspecified 1tab - 1 tablet every noon Last Documented On 12/04/2015 4:26PM By Whitley Mahajan MD ; [facility] KlonoPIN 0.5 MG Tablet 11/28/2014 - 04/30/2015 Provider: JULIO C MAHAJAN MD Diagnosis: Generalized anxi ety disorder as directed 1/2 to 1 tablet as needed only for anxiety Last Documented On 04/30/2015 5:10PM By Whitley Mahajan MD ; [facility] Lexapro 20 MG Tablet 11/28/2014 - 04/30/2015 Provider: JULIO C MAHAJAN MD Diagnosis: Major depressive disorder, recurrent, unspecified 1tab - 1 tablet every noon Last Documented On 04/30/2015 5:10PM By Whitley Mahajan MD ; [facility] Viibryd 10 & 20 & 40 MG Kit 11/28/2014 - 04/30/2015 Provider: JULIO C EDGE MD Diagnosis: Generalized anxi ety disorder 10 mg in am with food Last Documented On 6 4:39PM By АНДРЕЙ VELAZQUEZ LPN ; [facility] KlonoPIN 0.5 MG Tablet 05/24/2014 - 11/28/2014 Provider: JULIO C MAHAJAN MD Diagnosis: GENERALIZED ANXI ETY DIS as directed 1/2 to 1 tablet as needed only for anxiety--has 10 left Last Documented On 11/28/2014 4:11PM By Whitley Mahajan MD ; [facility] Lexapro 20 MG Tablet 05/23/2014 - 11/28/2014 Provider: JULIO C MAHAJAN MD Diagnosis: MAJOR DEPRESSION DISORDER/RECURRENT 1tab - 1 tablet every morning Last Documented On 11/28/2014 4:16PM By Whitley Mahajan MD ; [facility] Dialyvite Vitamin D3 Max 53228 UNIT Tablet 05/23/2014 - 01/04/2018 Provider: JULIO C MAHAJAN MD Diagnosis: VITAMIN D DEFICI ENCY NOS as directed -- 1 tab once a week Last Documented On 01/05/2018 1:51PM By Whitley Mahajan MD ; [facility] KlonoPIN 0.5 MG OR TABS 11/29/2013 - 05/23/2014 Provider: JULIO C MAHAJAN MD Diagnosis: GENERALIZED ANXI ETY DIS 1/2 to 1 tablet as needed on ly for anxiety--has 20 left -- used about 8 times within the last 6 mos Last Documented On 5 10:00AM By Whitley Mahajan MD ; [facility] Lexapro 20 MG OR TABS 11/29/2013 - 05/23/2014 Provider: JULIO C EDGE MD Diagnosis: MAJOR DEPRESSION DISORDER/RECURRENT Last Documented On 05/23/2014 4:15PM By Whitley Mahajan MD ; [facility] Crestor 20 MG OR TABS 11/07/2013 - 07/24/2019 Provider : Diagnosis: one tablet daily Last Documented On 07/24/2019 3:11PM By RIK BERGER ; [facility] Lexapro 20 MG OR TABS 08/03/2013 - 11/29/2013 Provider: JULIO C EDGE MD Diagnosis: MAJOR DEPRESSION DISORDER/RECURRENT Last Documented On 11/29/2013 4:29PM By Whitley Mahajan MD ; [facility] KlonoPIN 0.5 MG OR TABS 06/07/2013 - 11/29/2013 Provider: JULIO C MAHAJAN MD Diagnosis: GENERALIZED ANXI ETY DIS 1/2 to 1 tablet as needed on ly for anxiety--has not used much Last Documented On 11/29/2013 6:52PM By Whitley Mahajan MD ; [facility] Lexapro 20 MG OR TABS 06/07/2013 - 08/03/2013 Provider: JULIO C EDGE MD Diagnosis: MAJOR DEPRESSION DISORDER/RECURRENT Last Documented On 08/03/2013 6:24PM By Whtiley Mahajan MD ; [facility] Lex[facility]ro 20 MG OR TABS 01/05/2013 - 06/07/2013 Provider: JULIO C EDGE MD Diagnosis: MAJOR DEPRESSION DISORDER/RECURRENT Last Documented On 06/07/2013 6:00PM By Whitley Mahajan MD ; [facility] KlonoPIN 0.5 MG OR TABS 01/05/2013 - 06/07/2013 Provider: JULIO C MAHAJAN MD Diagnosis: GENERALIZED ANXI ETY DIS 1/2 to 1 tablet as needed on ly for anxiety--at times uses it at night for sleep--only uses it 1 x every 3 weeks only as needed Last Documented On 06/07/2013 6:00PM By Whitley Mahajan MD ; [facility] Lipitor 40 MG OR TABS 01/04/2013 - 11/29/2013 Provider : Diagnosis: Last Documented On 4 3:42PM By KATERIN BERGER ; [facility] Lexapro 20 MG OR TABS 09/07/2012 - 01/04/2013 Provider: JULIO C EDGE MD Diagnosis: MAJOR DEPRESSION DISORDER/RECURRENT Last Documented On 01/05/2013 9:52PM By Whitley Mahajan MD ; [facility] Diclofenac Sodium 75 MG OR TBEC 09/07/2012 - 8 Provider: Diagnosis: Last Documented On 07/04/2017 4:09PM By Whitley Mahajan MD ; [facility] KlonoPIN 0.5 MG OR TABS 09/07/2012 - 01/04/2013 Provider: JULIO C MAHAJAN MD Diagnosis: GENERALIZED ANXI ETY DIS 1/2 to 1 tablet as needed only for anxiety Last Documented On 01/05/2013 9:52PM By Whitley Mahajan MD ; [facility] KlonoPIN 0.5 MG OR TABS 07/06/2012 - 09/07/2012 Provider: JULIO C MAHAJAN MD Diagnosis: GENERALIZED ANXI ETY DIS 1/2 to 1 tablet as needed only for anxiety Last Documented On 09/07/2012 6:30PM By Whitley Mahajan MD ; [facility] Lexapro 20 MG OR TABS 07/06/2012 - 09/07/2012 Provider: JULIO C EDGE MD Diagnosis: MAJOR DEPRESSION DISORDER/RECURRENT Last Documented On 09/07/2012 3:42PM By Whitley Mahajan MD ; [facility] KlonoPIN 0.5 MG OR TABS 06/20/2012 - 07/06/2012 Provider: JULIO C MAHAJAN MD Diagnosis: GENERALIZED ANXI ETY DIS as needed only for anxiety---colon 22 left Last Documented On 07/06/2012 5:27PM By Whitley Mahajan MD ; [facility] Lexapro 20 MG OR TABS 06/20/2012 - 07/06/2012 Provider: JULIO C EDGE MD Diagnosis: MAJOR DEPRESSION DISORDER/RECURRENT Last Documented On 07/06/2012 5:27PM By Whitley Mahajan MD ; [facility] Lexapro 10 MG OR TABS 06/12/2012 - 06/20/2012 Provider : Diagnosis: Last Documented On 06/20/2012 7:00PM By Whitley Mahajan MD ; [facility] KlonoPIN 0.5 MG OR TABS 06/12/2012 - 06/20/2012 Provider: JULIO C MAHAJAN MD Diagnosis: GENERALIZED ANXI ETY DIS as needed only for anxiety Last Documented On 06/20/2012 7:03PM By Whitley Mahajan MD ; [facility] Lexapro 20 MG OR TABS 06/12/2012 - 06/20/2012 Provider: JULIO C EDGE MD Diagnosis: MAJOR DEPRESSION DISORDER/RECURRENT Last Documented On 06/20/2012 7:03PM By Whitley Mahajan MD ; [facility] Remeron 15 MG OR TABS 06/12/2012 - 07/06/2012 Provider: JULIO C EDGE MD Diagnosis: MAJOR DEPRESSION DISORDER/RECURRENT Last Documented On 07/06/2012 5:25PM By Whitley Mahajan MD ; [facility] Voltaren-XR 100 MG OR TB24 06/12/2012 - 09/07/2012 Pro vider: Diagnosis: 75 mg twice daily Last Documented On 09/07/2012 3:32PM By Whitley Mahajan MD ; [facility] Crestor 20 MG OR TABS 06/12/2012 - 01/04/2013 Provider : Diagnosis: Last Documented On 3 3:30PM By KATERIN BERGER ; [facility] Ativan 1 MG OR TABS 06/12/2012 - 06/20/2012 Provider: Diagnosis: 1/2 to 1 tablet bid prn Last Documented On 06/20/2012 7:00PM By Whitley Mahajan MD ; [facility] Medications Administered Includes: Administered Medications in patient's chart No Administered Medications Recorded Results Includes: Results from 07/14/2023 through 07/13/2024 No Results Recorded For Specified Dates History of Present Illness History of Present Illness not supported for this document type No History of Present Illness Recorded Social History Description Last Updated Chewing tobacco 04/26/2021 Last Documented On 2 8:32AM ; [facility] Alcohol use -- He drinks 6-10 beers in a week 02/09/2021 Last Documented On 2 10:17PM ; [facility] Daily coffee consumption - 4 4 oz of Diet Caff Free Mountain Dew daily, no coffee or tea 02/09/2021 Last Documented On 2 10:17PM ; [facility] Alcohol 09/01/2020 Last Documented On 1 8:58AM ; [facility] Lives with spouse 09/01/2020 Last Documented On 1 8:58AM ; [facility] No work history reported 09/01/2020 Last Documented On 1 8:58AM ; [facility] Smoker - chews 2 pouches daily 0 Last Documented On 0 8:08AM ; [facility] Tobacco use --chews tobacco - as of 07/23 -- 2 pouches daily 07/24/2019 Last Documented On 0 8:08AM ; [facility] He has 2 sons--Pravin now 18 y /o and Marcus He finally finished his [employer] degree. It took him 3 years to finish it.He denied any history of abuse. No past and pending legal problems. His catholic background is [employer] 07/16/2018 Last Documented On 9 7:48AM ; [facility] Marital history -- 04/30/2015 Last Documented On 6 7:30AM ; [facility] Not using drugs (Illicit) 06/12/2012 Last Documented On 3 7:04PM ; [facility] Smoking Status Unknown Procedures and Surgical History Surgical History Last Updated History of arthrodesis of a hand joint - fusion of left second and third finger joints after reattachment surgery 02/09/[address] Childs 02/09/2019 Last Documented On 9 3:07PM ; [facility] History of surgery of the right knee 2 008 11/28/2014 Last Documented On 5 8:31PM ; [facility] History of nasal septal deviation repair 10/15/13 11/28/2014 Last Documented On 5 8:31PM ; [facility] Medical History Includes: Medical History in patient's chart Description Last Updated History of coronavirus 2019- nCoV vaccine - Pfizer #1 and #2 06/2020 #3 06/202111/08/2021 Last Documented On 2 11:52AM ; [facility] History of dermatitis - of t he ear -- given Fluocinonide 0.05% soln 09/03/20 02/09/2021 Last Documented On 2 10:17PM ; [facility] History of acute suppurative sinusitis - given Augmentin 875 mg 01/14/21 02/09/2021 Last Documented On 2 10:17PM ; [facility] History of tinea pedis - given Ketoconaz ole 2% cream 05/29/19 07/24/2019 Last Documented On 0 8:08AM ; [facility] History of hypersomnia - tom e sleep study done last 07/12/17 and did not show CECE but Nuvigil really helped improve mental alertness 02/09/2019 Last Documented On 9 3:07PM ; [facility] 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 Dr. Childs reattached them at [place] -- 02/09/18 fusion of left 2nd and 3rd fingers after reattachment surgery by Dr. Childs -- developed infection -- 02/16/18 prescribed Augmentin 875mg and on 02/09/18 keflex 500mg 02/09/2019 Last Documented On 9 3:07PM ; [facility] History of deviated nasal septum (acquir ed) 05/24/2014 Last Documented On 5 10:06AM ; [facility] History of vitamin D deficiency 05/25/19 15 Last Documented On 5 10:06AM ; [facility] History of hyperlipidemia 06/07/2013 Last Documented On 4 6:24PM ; [facility] Primary Care Provider: Dr. Haseeb frances 06/12/2012 Last Documented On 3 7:04PM ; [facility] History of ankylosing spondylitis 2012 Last Documented On 3 7:04PM ; [facility] Family History Includes: Family History in patient's chart Description Last Updated Maternal grandfather's history of alcoho lism -- grandfather 11/28/2014 Last Documented On 5 8:31PM ; [facility] Fraternal history of bipolar disorder NO S -- brother Galo 05/24/2014 Last Documented On 5 10:06AM ; [facility] Fraternal history of psychia tric disorders -- brother Nnamdi is mentally challenged, h/o brain injury and seizure disorder 05/24/2014 Last Documented On 5 10:06AM ; [facility] Maternal history of hypochondriasis -- m other 05/23/2014 Last Documented On 5 10:06AM ; [facility] Maternal history of anxiety disorder NOS -- mother 05/23/2014 Last Documented On 5 10:06AM ; [facility] Maternal history of depression -- mother 05/23/2014 Last Documented On 5 10:06AM ; [facility] Review of Systems Review of Systems not supported for this document type No Review of Systems Recorded Mental Status Description Major depression, recurrent Functional Status No Functional Status Recorded Physical Exam Physical Exam not supported for this document type No Physical Exam Recorded Allergies Includes: Active, inactive, and resolved Allergies Substance Type Reaction Onset Date Resolved Date Statu s Sulfa Antibiotics Allergy Skin Rashes / Eruption of skin 06/12/2012 Active Last Documented On 10/31/2022 3:07PM ; [facility] Note: Imported from external source. Insurance Includes: Active Insurance Policies Plan Name Member ID Group # Subscriber Relationship Effect ciarra Dates 1 - [employer] [id number] DANE THAKKAR Self Clinical Notes Includes: Signed Clinical Notes starting from 04/01/2022 No Clinical Notes Recorded
--- OUTSIDE RECORDS SUMMARY | 2024-07-13 11:53 | XMS_ITS | Patient Health Record ---
Author Organization [facility] Address [address], [place] [id number] Care Team Providers Care Tape Librarian Name Role Phone Silvia Liao Unavailable [phone] Allergies No Known Allergies Reason For Referral No Information Medications Medication SIG (Take, Route, Frequency, Duration) Notes Start Date End Date Status Taltz 80 MG/ML Inject 80 mg subcutaneously in the abdomen or thigh, rotating sites every 4 weeks for 84 days 06/20/2024 09/12/2024 Active Taltz 80 MG/ML Inject 160 mg (two 8 0 mg injections) subcutaneously in the abdomen or thigh, rotating sites on Day 1 06/20/2024 Active Taltz 80 MG/ML as directed Subcutaneous Active Praluent 75 MG/ML as directed Subcutaneous Active Escitalopram Oxalate 20 MG 1 tablet Orally Once a day Active Indomethacin 50 MG 1 capsule with food or milk Orally Active Levothyroxine Sodium 50 MCG 1 tablet in the morning on an empty stomach Orally Once a day Active Social History Tobacco Use: Social History Observation Description Date Details (start date - stop date) Never Smoker NA - NA Sex Assigned At : Social History Observation Description Sex Assigned At Unknown Tobacco Control (Standard) Question Answer Notes Tobacco use: Nonsmoker Problems Problem Type SNOMED Code ICD Code Onset Dates Problem Status W/U Status Risk Notes Problem Psoriatic arthritis (disorder) (370472960) Arthropathic psoriasis, unspecified (L40.50) Active confirmed Problem Ankylosing spondylitis (9283194) Ankylosing spondylitis of unspecified sites in spine (M45.9) Active confirmed Problem Chronic fatigue syndrome (23934875) Chronic fatigue (R53.82) Active confirmed Problem Rheumatoid arthritis (11108202) Rheumatoid arthritis, involving unspecified site, unspecified whether rheumatoid factor present (M06.9) Active confirmed Problem Hypothyroid (25928215) Hypothyroid (E03.9) Active confirmed Problem Osteoarthritis (560428173) OA (osteoarthritis ) (M19.90) Active confirmed Problem Ankylosing spondylitis (6503186) (ankylosing spondylitis) (M45.9) Active confirmed Problem PsA (Psoriatic arthritis) (026822275) PSA (psoriatic arthritis) (L40.50) Active confirmed Problem Hyperlipidaemia (21267763) HLD (hyperlipidemia ) (E78.5) Active confirmed Vital Signs Height-cm 182.88 cm 06/13/2024 Weight-kg 99.79 kg 06/13/2024 Height 72 in 06/13/2024 Weight 220 lbs 06/13/2024 BMI 29.83 kg/m2 06/13/2024 Encounters Encounter Location Date Provider Diagnosis [address] [place], [place] [id number] 06/13/2024 Silvia Liao Ankylosing spondylitis of unspecified sites in spine M45.9 ; Arthropathic psoriasis, unspecified L40.50 ; Other assisted (current) drug therapy Z79.899 and Routine health maintenance Z00.00 Assessments Encounter Date Diagnosis (ICD Code) Assessment Notes Treatment Notes Treatment Clinical Notes Section Notes 06/13/2024 Ankylosing spondylitis of unspecified sites in spine (ICD-10 - M45.9) Mr. Longo is a 54-year-old male with Ankylosing Spondylitis and Psoriatic Arthritis, currently managed by Dr. Delacruz. At this time, patient will begin Taltz. Patient will be monitored assisted for symptom control and side effects. SCREENING: (06/13/24) CDAI: 30 (based on numerous tender/swollen joints with fair prognosis) LABS: QuantiFERON-TB Gold (05/06/2024): Negative Hepatitis B Surface Antigen (05/06/2024): NR Hepatitis B Core Ab, Total (05/06/2024): NR Ankylosing spondylitis is chronic in nature with periods of remission and flares. Flares can be triggered by stress, infections, certain medications, and alcohol. Taltz risks include but are not limited to immunosuppressio n, serious infections, worsening of inflammatory bowel disease and drug reactions. immunosuppressio n, allergic reactions and infections. Instructed to call the office with any concerns. 06/13/2024 Arthropathic psoriasis, unspecified (ICD-10 - L40.50) 06/13/2024 Other sander hand (current) drug therapy (ICD-10 - Z79.899) When on high-risk medications, patient must be vigilant about any new symptoms and understand the risks and side effects of their treatment. Biologic/small molecule medications can have significant side effects that may require blood test monitoring on a regular basis. Patient to contact providers for fever, chills, night sweats, malaise, abdominal pain, weakness, fatigue, headaches, infections, difficulty breathing or persistent cough, new skin lesions, or other unusual symptoms. 06/13/2024 Routine health maintenance (ICD-10 - Z00.00) https://www.cdc. gov/vaccines/vianey edules/downloads /adult/adult-com bined-schedule.p df 06/13/2024 Other Plan Of Treatment No Information Medical (General) History Medical History History ICD Code (ankylosing spondylitis) M45.9 PSA (psoriatic arthritis) L40.50 HLD (hyperlipidemia) E78.5 OA (osteoarthritis) M19.90 Hypothyroid E03.9 Chronic fatigue R53.82
--- OUTSIDE RECORDS SUMMARY | 2024-07-13 11:53 | XMS_ITS ---
Care Plan - [facility] Created on: July 13, 2024 DANE THAKKAR : 1970 Sex: Male Author Organization [facility] Address [address] [place] [phone] Phone Care Team Providers Care Interlibrary Loan Specialist Name Role Phone JULIO C WANG MD Unavailable [phone]
--- OUTSIDE RECORDS SUMMARY | 2024-07-13 11:53 | XMS_ITS ---
Care Plan - [facility] Created on: July 13, 2024 DANE THAKKAR : 1970 Sex: Male Author Organization [facility] Address [address] [place] [address] Phone Care Team Providers Care Shop Tech Name Role Phone JULIO C WANG MD Unavailable [phone]
--- OUTSIDE RECORDS SUMMARY | 2024-07-13 11:53 | XMS_ITS | Clinical Summary ---
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 JULIO C MAHAJAN MD Active Last Documented On 1 10:58AM ; [facility] Note: - hypofunction Psychophysiological Insomnia 05/11/2018 JULIO C MAHAJAN MD Active Last Documented On 9 7:41AM ; [facility] Sleep Disorder Hypersomnia 10/11/2017 JULIO C MAHAJAN MD Active Last Documented On 8 7:36AM ; [facility] Hyperlipidemia 05/27/2016 JULIO C Stewart Active Last Documented On 7 4:10PM ; [facility] Vitamin Deficiency 02/10/2014 JULIO C RUSH MD Active Last Documented On 7 4:32PM ; [facility] Ankylosing spondylitis of un specified sites in spine 06/12/2012 JULIO C MAHAJAN MD Active Last Documented On 5 3:17PM ; [facility] Generalized Anxiety Disorder 06/12/2012 JULIO C MAHAJAN MD Active Last Documented On 1 8:57AM ; [facility] Major depressive disorder, recurrent, mild 06/12/2012 JULIO C MAHAJAN MD Active Last Documented On 5 3:16PM ; [facility] Plan of Treatment Pending Tests Order Diagnosis Results Due Ordering P rovider Lab TSH 02/23/21 JULIO C CHEN MD Last Documented On 1 11:01AM ; [facility] Lab FREE T4 02/23/21 JULIO C CHEN MD Last Documented On 1 11:01AM ; [facility] Lab SERUM TESTOSTERONE 02/23/21 WARREN MAHAJAN MD Last Documented On 1 11:01AM ; [facility] Lab PSA 02/23/21 JULIO C CHEN MD Last Documented On 1 11:01AM ; [facility] Lab VITAMIN D 02/23/21 JULIO C CHEN MD Last Documented On 2 10:15PM ; [facility] Assessments Includes: Assessments from this encounter No Assessments Recorded Medical Equipment - Implanted Devices Includes: Current Devices No Medical Equipment Recorded Medications Includes: Medications discussed during this encounter and other current Medications Current Medications (continue as prescribed) KlonoPIN 0.5 MG Oral Tablet 04/25/2022 Provider: JULIO C MAHAJAN MD Diagnosis: Psychophysiologi c insomnia as directed 1/2 to 1 tablet as needed only for anxiety/sleep Last Documented On 04/25/2022 3:52PM By Whitley Mahajan MD ; [facility] Escitalopram Oxalate 20 MG Oral Tablet 12/23/2021 Provider: JULIO C MAHAJAN MD Diagnosis: Generalized anxi ety disorder One tablet daily Last Documented On 2 10:15AM By Whitley Mahajan MD ; [facility] Praluent 75 MG/ML Subcutaneo us Solution Auto-injector 05/23/2019 Provider: JANAE SMALLS MD Diagnosis: 1 injection every two weeks Last Documented On 07/24/2019 3:20PM By RIK BERGER ; [facility] Indomethacin 50MG Oral Capsule 01/26/2018 Provider: Diagnosis: 1 cap bid Last Documented On 07/11/2018 2:58PM By RIK BERGER ; [facility] Medical [facility] Nuvigil 250MG Oral Tablet 07/04/2017 Provider: JULIO C MAHAJAN MD Diagnosis: Obstructive slee p apnea (adult) (pediatric) as directed --1 tab in am Last Documented On 07/04/2017 4:29PM By Whitley Mahajan MD ; [facility] Medical [facility] Medications Administered Includes: Administered Medications from [...] Active Last Documented On 10/31/2022 3:07PM ; [facility] MEDICAL [facility] Note: Imported from external source. Encounters Encounter Provider Location Date Check-In Time Check-Out Time Diagnosis * PHONE CALL JULIO C MAHAJAN MD [facility] 2 4:12PM 11:59PM Insurance Includes: Active Insurance Policies Plan Name Member ID Group # Subscriber Relationship Effect ciarra Dates 1 - [employer] [id number] DANE Curtis Clinical Notes Includes: Clinical Notes from this encounter No Clinical Notes Recorded
--- OUTSIDE RECORDS SUMMARY | 2024-07-13 11:53 | XMS_ITS ---
Author Organization [address] [facility] Address [address], [place] [id number] Care Team Providers Care Independent Sales Representative Name Role Phone Silvia Liao Unavailable [phone] Allergies No Known Allergies Medications Medication SIG (Take, Route, Frequency, Duration) [...] Praluent 75 MG/ML as directed Subcutaneous Active Indomethacin 50 MG 1 capsule with food or milk Orally Active Escitalopram Oxalate 20 MG 1 tablet Orally Once a day Active Levothyroxine Sodium 50 MCG 1 tablet [...] Problem Status W/U Status Risk Notes Problem Rheumatoid arthritis (40096388) Rheumatoid arthritis, involving unspecified site, unspecified whether rheumatoid factor present (M06.9) Active confirmed Problem Ankylosing spondylitis (0450235) (ankylosing spondylitis) (M45.9) Active confirmed Problem PsA (Psoriatic arthritis) (005452065) PSA (psoriatic arthritis) (L40.50) Active confirmed Problem Hyperlipidaemia (46522325) HLD (hyperlipidemia ) (E78.5) Active confirmed Problem Osteoarthritis (426120087) OA (osteoarthritis ) (M19.90) Active confirmed Problem Hypothyroid (30422482) Hypothyroid (E03.9) Active confirmed Problem Ankylosing spondylitis (4407661) Ankylosing spondylitis of unspecified sites in spine (M45.9) Active confirmed Problem Psoriatic arthritis (disorder) (401894731) Arthropathic psoriasis, unspecified (L40.50) Active confirmed Problem Chronic fatigue syndrome (77477099) Chronic fatigue (R53.82) Active confirmed Vital Signs Height 72 in 06/13/2024 Weight 220 lbs 06/13/2024 BMI 29.83 kg/m2 06/13/2024 Height-cm 182.88 cm 06/13/2024 Weight-kg 99.79 kg 06/13/2024 Encounters Encounter Location Date Provider Diagnosis [address] [place], [place] [id number] 06/13/2024 Silvia Liao Ankylosing spondylitis of unspecified sites in spine M45.9 ; Arthropathic psoriasis, unspecified L40.50 ; Other prison (current) drug therapy Z79.899 and Routine health maintenance Z00.00 Assessments Encounter Date Diagnosis (ICD Code) Assessment Notes Treatment Notes Treatment Clinical Notes Section Notes 06/13/2024 Ankylosing spondylitis of unspecified sites in spine (ICD-10 - M45.9) Mr. Longo is a 54-year-old male with Ankylosing Spondylitis and Psoriatic Arthritis, currently managed by Dr. Delacruz. At this time, patient will begin Taltz. Patient will be monitored terminal carman for symptom control and side effects. SCREENING: [...] psoriasis, unspecified (ICD-10 - L40.50) 06/13/2024 Other prison (current) drug therapy (ICD-10 - Z79.899) When [...] bined-schedule.p df 06/13/2024 Other Plan Of Treatment Medication Medication Name Sig Start Date Stop Date Notes Taltz 80 MG/ML Inject 80 mg subcuta neously in the abdomen or thigh, rotating sites every 4 weeks for 84 days 06/20/2024 09/12/2024 Taltz 80 MG/ML Inject 160 mg (two 8 0 mg injections) subcutaneously in the abdomen or thigh, rotating sites on Day 1 06/20/2024 Treatment Notes Assessment Notes Ankylosing spondylitis of un specified sites in spine Mr. Longo is a 54-year-old male with Ankylosing Spondylitis and Psoriatic Arthritis, currently managed by Dr. Delacruz. At this time, patient will begin Taltz. Patient will be monitored prison for symptom control and side effects. SCREENING: [...] risks include but are not limited to immunosuppression, serious infections, worsening of inflammatory bowel disease and drug reactions. immunosuppression, allergic reactions and infections. Instructed to call the office with any concerns. Other terminal carman (current) drug therapy W hen on high-risk medications, patient must be vigilant [...] new skin lesions, or other unusual symptoms. Routine health maintenance https://www.c dc.gov/vaccines/schedules/down loads/adult/raiax-tczadhgh-dluxudvr.pdf Progress Notes * DANE LONGODOB:1970 (54 yo M)Acc No.[id number]:06/13/2024 Patient: DANE HIGHTOWER Provider: Jackie Liao :1970 A ge:54 Y S ex:Male Date:06/13/2024 Address:[address] [place], [place] [id number] Subjective: * Chief Complaints: * * HPI: T elemedicine: Mr. Longo is a 54-year-old male with Ankylosing Spondylitis and Psoriatic Arthritis, currently managed by Dr. Delacruz. Patient's past medical history is notable for HLD, OA, and hypothyroid. Family history notable for arthritis. The patient reports joint pain, swelling, and stiffness specifically in his neck, back, elbows, and hands. His symptoms to his hands and elbows have been worsening since 2550-7030. Previously, the patient has tried and failed Diclofenac (decreasing efficacy), indomethacin, and MTX (elevated liver enzymes). The patient does not occasionally take OTC meds. Patient denied hospitalizations or ER visits within the last six months. Patient was called to verify their medical status and their prescription status. At this time, there are no changes to our prescription plans. HOC is assisting as a specialty team in monitoring their health in consult with the patient's virtual classroom manager. Biologic/small molecule agents affect human immunology can put patients at risk for various infections and malignancies. Proper monitoring with lab tests and an updated vaccination profile can minimize these risks. A HOC steam hoist operator will be available to the patient for medication management. * Medical History: A S (ankylosing spondylitis), PSA (psoriatic arthritis), HLD (hyperlipidemia), OA (osteoarthritis), Hypothyroid, Chronic fatigue. * Hospitalization/Major Diagno stic Procedure: D enies Past Hospitalization. * Family History: F ather: arthritis. * Social History: T obacco Use: T obacco Control (Standard) T obacco use: N onsmoker * Medications: T aking Levothyroxine Sodium 50 MCG Tablet 1 tablet in the morning on an empty stomach Orally Once a day , Taking Escitalopram Oxalate 20 MG Tablet 1 tablet Orally Once a day , Taking Indomethacin 50 MG Capsule 1 capsule with food or milk Orally , Taking Taltz 80 MG/ML Solution Auto-injector as directed Subcutaneous , Taking Praluent 75 MG/ML Solution Auto-injector as directed Subcutaneous , Medication List reviewed and reconciled with the patient * Allergies: N .K.D.A. Objective: * Vitals: W t:220lbs, Wt-k.79 kg, Ht:72in, Ht-cm: 182.88 cm, BMI:29.83Index, Body Surface Area: 2.25. Assessment: * Assessment: 1. A nkylosing spondylitis of unspecified sites in spine - M45.9 2 . A rthropathic psoriasis, unspecified - L40.50 3 . O ther prison (current) drug therapy - Z79.[address] health maintenance - Z00.00 Plan: * Treatment: 2. O ther terminal carman (current) drug therapy Notes:When on high-risk medications, patient must be vigilant [...] new skin lesions, or other unusual symptoms. 3. [address] health maintenance Notes:https://www.cdc.gov/vaccines/sched ules/downloads/adult/mazwr-abltqune-mcyaw ule.pdf * Billing Information: * Visit Code: * Procedure Codes: Care Plan Details* * Electronic signature of ABDI Zee on 07/13/2024 at 11:52 AM CDT Sign off status: Pending * Provider: Jackie Ribeirourvkathy Date: 0 06/13/2024 Generated for Shankar villa/Fredy/Fredis on: 0 07/13/2024 11:52 AM CDT History and Physical Notes * HPI (History of Present Illness) Category Sub-Category Detail Notes Category Not es Telemedicine Mr. Longo is a 54-year-old male with Ankylosing Spondylitis and Psoriatic Arthritis, currently managed by Dr. Delacruz. Patient's past medical history is notable for HLD, OA, and hypothyroid. Family history notable for arthritis. The patient reports joint pain, swelling, and stiffness specifically in his neck, back, elbows, and hands. His symptoms to his hands and elbows have been worsening since 4748-1419. Previously, the patient has tried and failed Diclofenac (decreasing efficacy), indomethacin, and MTX (elevated liver enzymes). The patient does not occasionally take OTC meds. Patient denied hospitalizations or ER visits within the last six months. Patient was called to verify their medical status and their prescription status. At this time, there are no changes to our prescription plans. HOC is assisting as a specialty team in monitoring their health in consult with the patient's virtual classroom manager. Biologic/small molecule agents affect human immunology can put patients at risk for various infections and malignancies. Proper monitoring with lab tests and an updated vaccination profile can minimize these risks. A HOC steam hoist operator will be available to the patient for medication management.
--- OUTSIDE RECORDS SUMMARY | 2024-07-13 11:53 | XMS_ITS | Clinical Summary ---
Author Organization [facility] Address [address] [place] [address] Phone Care Team Providers Care Public Relations Assistant Name Role Phone Haseeb Barry MD Primary Care Provider [phone] Allergies Active Allergy Reactions Criticality Noted Date Comments Sulfa (Sulfonamide Antibiotics) Itching Low 10/11 Medications ROSUVASTATIN CALCIUM (CRESTOR ORAL) Take 20 mg by mouth daily. 10/22/2010 Active DICLOFENAC SODIUM (VOLTAREN-XR ORAL) Take 75 mg by mouth 2 times daily. 10/22/2010 Active ESCITALOPRAM OXALATE (LEXAPRO ORAL) Take 10 mg by mouth daily. 10/22/2010 Active omeprazole (PRILOSEC) 40 mg Oral CpDR Take 1 Cap by mouth daily. 14 Cap 0 10/22/2010 Active Active Problems Problem Noted Date Diagnosed Date Chest pain 10/22/2010 Dyspepsia 10/22/2010 HLD (hyperlipidemia) 10/22/2010 Ankylosing spondylitis 10/22/2010 Family History Medical History Relation Name Comments High Cholesterol Father High Cholesterol Paternal Grandfather Relation Name Status Comments Father Paternal Grandfather Social History Tobacco Use Types Packs/Day Years Used Date Smoking Tobacco: Former Comments:tried once or twice , remotely Alcohol Use Standard Drinks/Week Comments Yes 1.7 (1 standard drink = 0.6 oz p ure alcohol) Sex and Gender Information Value Date Recorded Sex Assigned at Not on file 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 Gender Identity Not on file Sexual Orientation Not on file Last Filed Vital Signs Vital Sign Reading Time Taken Comments Blood Pressure 111/61 10/22/2010 6:43 PM CDT Pulse 57 10/22/2010 6:43 PM CDT Temperature 36.3 C (97.4 F) 10/22/2010 6:43 PM CDT Respiratory Rate 18 10/22/2010 6:43 PM CDT Oxygen Saturation 95% 10/22/2010 6:43 PM CDT Inhaled Oxygen Concentration - - Weight 91.2 kg (201 lb) 10/22/2010 3:49 PM CDT Height 185.4 cm (6' 1 ) 10/22/2010 3:49 PM CDT Body Mass Index 26.52 10/22/2010 3:49 PM CDT Plan of Treatment Health Maintenance Due Date Last Done Comments DTAP/TDAP/TD VACCINES (1 - Tdap) 01/03/1988 HEPATITIS B VACCINES (1 of 3 - 19+ 3-dose series) 12/12 COLORECTAL SCREENING 2014 Colorectal Cancer Screening 2014 FIT-DNA Q 3 years 2014 FIT/FOBT Q 1 year 2014 Flex Sig/CT Colonography Q 5 years 2014 ZOSTER VACCINE (1 of 2) 2019 INFLUENZA VACCINE (#1) 2023 Insurance [facility] BLUE ACCESS/TRUE BLUE PPO Advance Directives For more information, please contact: [phone] * Full Code (Latest Code Status on File) Date Activated Date Inactivated Comments 10/22/2010 3:33 PM 10/22/2010 10:15 PM Care Teams Public Relations Assistant Relationship Specialty Start Date End Date Haseeb Barry MD PCP - General Family Practice 10/22/10
--- OUTSIDE RECORDS SUMMARY | 2024-07-13 11:54 | XMS_ITS ---
Author Organization [facility] Address [address] [place] [address] Phone Care Team Providers Care Primary School Teacher Librarian Name Role Phone JULIO C MAHAJAN MD Unavailable [phone] Problems Includes: Active, inactive, and resolved Problems All Visits Onset Date Resolved Date Provider Condition S tatus Generalized Anxiety Disorder 08/11/2022 JULIO C MAHAJAN MD Active Last Documented On 3 6:32PM ; [facility] Panic Disorder 08/11/2022 JULIO C Stewart Active Last Documented On 3 6:33PM ; [facility] Hypothyroidism 01/11/2021 JULIO C Stewart Inactive Last Documented On 3 6:33PM ; [facility] 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 Last Documented On 3 5:53PM ; [facility] Note: - hypofunction Psychophysiological Insomnia 05/11/2018 Active Last Documented On 3 5:52PM ; [facility] Sleep Disorder Hypersomnia 10/11/2017 Active Last Documented On 3 5:51PM ; [facility] Hyperlipidemia 05/27/2016 Active Last Documented On 3 5:50PM ; [facility] Nicotine Dependence 05/23/2014 Inact ciarra Last Documented On 07/09/2022 5:48PM ; [facility] Note: chewing Nicotine dependence, unspecified, uncomplicated 05/23/2014 Inactive Last Documented On 3 5:48PM ; [facility] Vitamin Deficiency 02/10/2014 Inacti ve Last Documented On 3 5:48PM ; [facility] Note: Vitamin D deficiency Vitamin Deficiency 02/10/2014 Active Last Documented On 3 5:48PM ; [facility] Ankylosing Spondylitis 06/12/2012 In active Last Documented On 3 5:45PM ; [facility] Ankylosing spondylitis of unspecified sites in spine 06/12 Active Last Documented On 3 5:48PM ; [facility] Major Depression, Recurrent 06/12/2012 Inactive Last Documented On 3 5:45PM ; [facility] Major Depression Recurrent Mild 06/12/2012 MAI MAHAJAN MD Active Last Documented On 3 3:12PM ; [facility] Plan of Treatment Education and Decision Aids were provided during visit for: Calming techniques such as b reathing exercises/meditation and other relaxation techniques Last Documented On 4 8:24AM ; [facility] Assessments Includes: Assessments for all patient encounters Findings Encounter Date Generalized anxiety disorder TELEHEALTH ADULT PSYCH ESTABLISHED with JULIO C MAHAJAN MD 05/30/2023 Last Documented On 4 8:26AM ; [facility] Mild recurrent major depression TELEHEAL TH ADULT PSYCH ESTABLISHED with JULIO C MAHAJAN MD 05/30/2023 Last Documented On 4 8:26AM ; [facility] Panic disorder TELEHEALTH ADULT PSY CH ESTABLISHED with JULIO C MAHAJAN MD 05/30/2023 Last Documented On 4 8:26AM ; [facility] Psychophysiological insomnia TELEHEALTH ADULT PSYCH ESTABLISHED with JULIO C MAHAJAN MD 05/30/2023 Last Documented On 4 8:26AM ; [facility] Generalized anxiety disorder TELEHEALTH ADULT PSYCH ESTABLISHED with JULIO C MAHAJAN MD 10/31/2022 Last Documented On 3 6:39PM ; [facility] Mild recurrent major depression TELEHEAL TH ADULT PSYCH ESTABLISHED with JULIO C MAHAJAN MD 10/31/2022 Last Documented On 3 6:39PM ; [facility] Panic disorder TELEHEALTH ADULT PSY CH ESTABLISHED with JULIO C MAHAJAN MD 10/31/2022 Last Documented On 3 6:39PM ; [facility] Psychophysiological insomnia TELEHEALTH ADULT PSYCH ESTABLISHED with JULIO C MAHAJAN MD 10/31/2022 Last Documented On 3 6:39PM ; [facility] Instructions Includes: Instructions for all patient encounters Education and Decision Aids were provided during visit for: Calming techniques such as b reathing exercises/meditation and other relaxation techniques Last Documented On 4 8:24AM ; [facility] Medical Equipment - Implanted Devices Includes: Current and historical Devices No Medical Equipment Recorded Medications Includes: Current and historical Medications Current Medications (continue as prescribed) Escitalopram Oxalate 20 MG Oral Tablet 06/02/2023 Provider: JULIO C MAHAJAN MD Diagnosis: Generalized anxi ety disorder TAKE 1 TABLET BY MOUTH DAILY Last Documented On 06/02/2023 8:50AM By Whitley Mahajan MD ; [facility] Levothyroxine Sodium 50 MCG Oral Tablet 05/24/2023 Michelle padilla: JANAE SMALLS MD Diagnosis: Last Documented On 05/30/2023 2:49PM By Whitley Mahajan MD ; [facility] Levothyroxine Sodium 50 MCG Oral Tablet 05/24/2023 Michelle padilla: JANAE SMALLS MD Diagnosis: 1 tablet every morning Last Documented On 05/30/2023 2:52PM By JUAN CARLOS SANDOVAL ; [facility] Drysol 20% External Solution 07/05/2022 Provider: JANAE SMALLS MD Diagnosis: PRN Last Documented On 10/31/2022 3:08PM By RIK BERGER ; [facility] KlonoPIN 0.5 MG OR TABS 04/25/2022 Provider: MAI MAHAJAN MD Diagnosis: Psychophysiologi c insomnia as directed 1/2 to 1 tablet as needed only for anxiety/sleep Last Documented On 07/09/2022 5:36PM By Whitley Mahajan MD ; [facility] Praluent 75 MG/ML SC SOAJ 05/23/2019 Provider: Diagnosis: 1 injection every two weeks Last Documented On 07/09/2022 5:36PM By RIK BERGER ; [facility] Indomethacin 50 MG OR CAPS 01/26/2018 Provider: Diagnosis: 1 cap bid Last Documented On 07/09/2022 5:36PM By RIK BERGER ; [facility] Past Medications on file Escitalopram Oxalate 20 MG Oral Tablet 01/20/2023 - 06/02/2023 Provider: JULIO C MAHAJAN MD Diagnosis: Generalized anxi ety disorder TAKE 1 TABLET BY MOUTH DAILY Last Documented On 06/02/2023 8:47AM By Whitley Mahajan MD ; [facility] Escitalopram Oxalate 20 MG Oral Tablet 07/18/2022 - 01/20/2023 Provider: JULIO C MAHAJAN MD Diagnosis: Generalized anxi ety disorder One tablet daily Last Documented On 01/20/2023 2:10PM By Whitley Mahajan MD ; [facility] Escitalopram Oxalate 20 MG OR TABS 12/23/2021 - 07/18/2022 Provider: JULIO C MAHAJAN MD Diagnosis: Generalized anxi ety disorder One tablet daily Last Documented On 07/18/2022 4:12PM By Whitley Mahajan MD ; [facility] Escitalopram Oxalate 20 MG OR TABS 08/27/2021 - 12/23/2021 Provider: JULIO C MAHAJAN MD Diagnosis: Generalized anxi ety disorder One tablet daily Last Documented On 07/09/2022 5:36PM By Whitley Mahajan MD ; [facility] Escitalopram Oxalate 20 MG OR TABS 06/16/2021 - 08/27/2021 Provider: JULIO C MAHAJAN MD Diagnosis: Generalized anxi ety disorder One tablet daily Last Documented On 07/09/2022 5:36PM By Whitley Mahajan MD ; [facility] Levothyroxine Sodium 100 MCG OR TABS 04/07/2021 - 10/12 Provider: Diagnosis: 1 tablet daily Last Documented On 07/09/2022 5:36PM By JUAN CARLOS SANDOVAL ; [facility] Trintellix 10 MG OR TABS 03/26/2021 - 11/08/2021 Provider: JULIO C MAHAJAN MD Diagnosis: Generalized anxi ety disorder One tablet daily Last Documented On 07/09/2022 5:36PM By Whitley Mahajan MD ; [facility] Amoxicillin 500 MG OR CAPS 03/25/2021 - 11/08/2021 Pro vider: Diagnosis: from [address] Last Documented On 07/09/2022 5:36PM By Whitley Mahajan MD ; [facility] Vitamin D (Ergocalciferol) 1.25 MG (21044 UT) OR CAPS 03/01/2021 - 11/08/2021 Provider: JULIO C MAHAJAN MD Diagnosis: Vitamin deficien cy, unspecified as directed -- 1 cap 2 x a w [place] (Sat and Wed) for 4 months then once a week thereafter for 1 year Last Documented On 07/09/2022 5:36PM By Whitley Mahajan MD ; [facility] Trintellix 10 MG OR TABS 03/01/2021 - 03/26/2021 Provider: JULIO C MAHAJAN MD Diagnosis: Generalized anxi ety disorder One tablet daily Last Documented On 07/09/2022 5:36PM By Whitley Mahajan MD ; [facility] Trintellix 20 MG OR TABS 02/09/2021 - 11/08/2021 Provider: JULIO C MAHAJAN MD Diagnosis: Major depressive disorder, recurrent, mild One tablet daily Last Documented On 07/09/2022 5:36PM By Whitley Mahajan MD ; [facility] Escitalopram Oxalate 20 MG OR TABS 10/02/2020 - 06/16/2021 Provider: JULIO C MAHAJAN MD Diagnosis: Major depressive disorder, recurrent, mild One tablet daily Last Documented On 07/09/2022 5:36PM By Whitley Mahajan MD ; [facility] Drysol 20% EX SOLN 09/03/2020 - 11/08/2021 Provider: Diagnosis: use as directed Last Documented On 07/09/2022 5:36PM By RIK BERGER ; [facility] Escitalopram Oxalate 20 MG OR TABS 03/02/2020 - 10/02/2020 Provider: JULIO C MAHAJAN MD Diagnosis: Major depressive disorder, recurrent, mild One tablet daily Last Documented On 07/09/2022 5:36PM By Whitley Mahajan MD ; [facility] KlonoPIN 0.5 MG OR TABS 03/02/2020 - 04/25/2022 Provider: JULIO C MAHAJAN MD Diagnosis: Psychophysiologi c insomnia as directed 1/2 to 1 tablet as needed only for anxiety/sleep Last Documented On 07/09/2022 5:36PM By Whitley Mahajan MD ; [facility] Turmeric 500 MG OR TABS 01/22/2020 - 02/09/2021 Provid er: Diagnosis: 1 tab daily patient's dose is 600 mg Last Documented On 07/09/2022 5:36PM By RIK BERGER ; [facility] Escitalopram Oxalate 20 MG OR TABS 09/09/2019 - 03/02/2020 Provider: JULIO C MAHAJAN MD Diagnosis: Major depressive disorder, recurrent, mild One tablet daily Last Documented On 07/09/2022 5:36PM By Whitley Mahajan MD ; [facility] Escitalopram Oxalate 20 MG OR TABS 06/10/2019 - 07/24/2019 Provider: JULIO C MAHAJAN MD Diagnosis: Major depressive disorder, recurrent, mild One tablet daily Last Documented On 07/09/2022 5:36PM By Whitley Mahajan MD ; [facility] Armodafinil 250 MG OR TABS 02/22/2019 - 11/08/2021 Provider: JULIO C MAHAJAN MD Diagnosis: Hypersomnia, unspecified 1 tablet every morning Last Documented On 07/09/2022 5:36PM By Whitley Mahajan MD ; [facility] Escitalopram Oxalate 20 MG OR TABS 02/21/2019 - 06/10/2019 Provider: JULIO C MAHAJAN MD Diagnosis: Major depressive disorder, recurrent, mild One tablet daily Last Documented On 07/09/2022 5:36PM By Whitley Mahajan MD ; [facility] Armodafinil 250 MG OR TABS 02/21/2019 - 02/22/2019 Provider: JULIO C MAHAJAN MD Diagnosis: Hypersomnia, unspecified 1 tablet every morning Last Documented On 07/09/2022 5:36PM By Whitley Mahajan MD ; [facility] Armodafinil 250 MG OR TABS 01/16/2019 - 02/21/2019 Provider: JULIO C MAHAJAN MD Diagnosis: Hypersomnia, unspecified 1 tablet every morning Last Documented On 07/09/2022 5:36PM By Whitley Mahajan MD ; [facility] Escitalopram Oxalate 20 MG OR TABS 01/16/2019 - 02/21/2019 Provider: JULIO C MAHAJAN MD Diagnosis: Major depressive disorder, recurrent, mild One tablet daily Last Documented On 07/09/2022 5:36PM By Whitley Mahajan MD ; [facility] KlonoPIN 0.5 MG OR TABS 01/16/2019 - 03/02/2020 Provider: JULIO C MAHAJAN MD Diagnosis: Psychophysiologi c insomnia as directed 1/2 to 1 tablet as needed only for anxiety/sleep Last Documented On 07/09/2022 5:36PM By Whitley Mahajan MD ; [facility] Escitalopram Oxalate 20 MG OR TABS 11/01/2018 - 01/16/2019 Provider: JULIO C MAHAJAN MD Diagnosis: Major depressive disorder, recurrent, mild One tablet daily Last Documented On 07/09/2022 5:36PM By Whitley Mahajan MD ; [facility] Armodafinil 250 MG OR TABS 07/16/2018 - 01/16/2019 Provider: JULIO C MAHAJAN MD Diagnosis: Hypersomnia, unspecified 1 tablet every morning as ne eded -- pt used only 4 tabs as of 07/11/18 and it helped Last Documented On 07/09/2022 5:36PM By Whitley Mahajan MD ; [facility] KlonoPIN 0.5 MG OR TABS 07/16/2018 - 01/16/2019 Provider: JULIO C MAHAJAN MD Diagnosis: Psychophysiologi c insomnia as directed 1/2 to 1 tablet as needed only for anxiety/sleep Last Documented On 07/09/2022 5:36PM By Whitley Mahajan MD ; [facility] Escitalopram Oxalate 20 MG OR TABS 07/16/2018 - 11/01/2018 Provider: JULIO C MAHAJAN MD Diagnosis: Major depressive disorder, recurrent, mild One tablet daily Last Documented On 07/09/2022 5:36PM By Whitley Mahajan MD ; [facility] KlonoPIN 0.5 MG OR TABS 07/11/2018 - 07/11/2018 Provider: JULIO C MAHAJAN MD Diagnosis: Generalized anxi ety disorder as directed 1/2 to 1 tablet as needed only for anxiety Last Documented On 07/09/2022 5:36PM By Whitley Mahajan MD ; [facility] Escitalopram Oxalate 20 MG OR TABS 04/23/2018 - 07/11/2018 Provider: JULIO C MAHAJAN MD Diagnosis: Major depressive disorder, recurrent, mild One tablet daily Last Documented On 07/09/2022 5:36PM By Whitley Mahajan MD ; [facility] KlonoPIN 0.5 MG OR TABS 01/05/2018 - 07/11/2018 Provider: JULIO C MAHAJAN MD Diagnosis: Generalized anxi ety disorder as directed 1/2 to 1 tablet as needed only for anxiety Last Documented On 07/09/2022 5:36PM By Whitley Mahajan MD ; [facility] Dialyvite Vitamin D3 Max 1.25 MG (66380 UT) OR TABS 01/05/2018 - 11/08/2021 Provider: JULIO C MAHAJAN MD Diagnosis: Vitamin D defici ency, unspecified as directed -- 1 tab once a week Last Documented On 07/09/2022 5:36PM By Whitley Mahajan MD ; [facility] Armodafinil 250 MG OR TABS 01/05/2018 - 07/11/2018 Provider: JULIO C MAHAJAN MD Diagnosis: Hypersomnia, unspecified 1 tablet every morning as needed Last Documented On 07/09/2022 5:36PM By Whitley Mahajan MD ; [facility] Escitalopram Oxalate 20 MG OR TABS 01/05/2018 - 04/23/2018 Provider: JULIO C MAHAJAN MD Diagnosis: Major depressive disorder, recurrent, mild One tablet daily Last Documented On 07/09/2022 5:36PM By Whitley Mahajan MD ; [facility] Lexapro 20 MG OR TABS 12/18/2017 - 01/04/2018 Provider: JULIO C EDGE MD Diagnosis: Major depressive disorder, recurrent, unspecified 1tab - 1 tablet in am Last Documented On 07/09/2022 5:36PM By Whitley Mahajan MD ; [facility] KlonoPIN 0.5 MG OR TABS 07/10/2017 - 01/04/2018 Provider: JULIO C MAHAJAN MD Diagnosis: Generalized anxi ety disorder as directed 1/2 to 1 tablet as needed only for anxiety Last Documented On 07/09/2022 5:36PM By Whitley Mahajan MD ; [facility] Lexapro 20 MG OR TABS 07/04/2017 - 12/18/2017 Provider: JULIO C EDGE MD Diagnosis: Major depressive disorder, recurrent, unspecified 1tab - 1 tablet in am Last Documented On 07/09/2022 5:36PM By Whitley Mahajan MD ; [facility] Nathalie 3 1200 MG OR CAPS 12/09/2016 - 07/24/2019 Provid er: Diagnosis: 1 daily Last Documented On 07/09/2022 5:36PM By АНДРЕЙ VELAZQUEZ LPN ; [facility] Lexapro 20 MG OR TABS 12/09/2016 - 07/04/2017 Provider: JULIO C EDGE MD Diagnosis: Major depressive disorder, recurrent, unspecified 1tab - 1 tablet in am Last Documented On 07/09/2022 5:36PM By Whitley Mahajan MD ; [facility] Turmeric 500 MG OR TABS 12/09/2016 - 01/22/2020 Provid er: Diagnosis: 1 three times a day Last Documented On 07/09/2022 5:36PM By АНДРЕЙ VELAQZUEZ LPN ; [facility] KlonoPIN 0.5 MG OR TABS 12/09/2016 - 07/04/2017 Provider: JULIO C MAHAJAN MD Diagnosis: Generalized anxi ety disorder as directed 1/2 to 1 tablet as needed only for anxiety Last Documented On 07/09/2022 5:36PM By Whitley Mahajan MD ; [facility] Lexapro 20 MG OR TABS 06/13/2016 - 12/09/2016 Provider: JULIO C EDGE MD Diagnosis: Major depressive disorder, recurrent, unspecified 1tab - 1 tablet in am Last Documented On 07/09/2022 5:36PM By Whitley Mahajan MD ; [facility] KlonoPIN 0.5 MG OR TABS 05/27/2016 - 12/09/2016 Provider: JULIO C MAHAJAN MD Diagnosis: Generalized anxi ety disorder as directed 1/2 to 1 tablet as needed only for anxiety -- has not used except 2 or 3 times last year Last Documented On 07/09/2022 5:36PM By Whitely Mahajan MD ; [facility] Lexapro 20 MG OR TABS 05/27/2016 - 06/13/2016 Provider: JULIO C EDGE MD Diagnosis: Major depressive disorder, recurrent, unspecified 1tab - 1 tablet in am -- has 40 tabs left as of 05/27/16 Last Documented On 07/09/2022 5:36PM By Whitley Mahajan MD ; [facility] KlonoPIN 0.5 MG OR TABS 12/04/2015 - 05/27/2016 Provider: JULIO C MAHAJAN MD Diagnosis: Generalized anxi ety disorder as directed 1/2 to 1 tablet as needed only for anxiety Last Documented On 07/09/2022 5:36PM By Whitley Mahajan MD ; [facility] Lexapro 20 MG OR TABS 12/04/2015 - 05/27/2016 Provider: JULIO C EDGE MD Diagnosis: Major depressive disorder, recurrent, unspecified 1tab - 1 tablet in am Last Documented On 07/09/2022 5:36PM By Whitley Mahajan MD ; [facility] KlonoPIN 0.5 MG OR TABS 04/30/2015 - 12/04/2015 Provider: JULIO C MAHAJAN MD Diagnosis: Generalized anxi ety disorder as directed 1/2 to 1 tablet as needed only for anxiety -- used 2 so far Last Documented On 07/09/2022 5:36PM By Whitley Mahajan MD ; [facility] Lexapro 20 MG OR TABS 04/30/2015 - 12/04/2015 Provider: JULIO C EDGE MD Diagnosis: Major depressive disorder, recurrent, unspecified 1tab - 1 tablet every noon Last Documented On 07/09/2022 5:36PM By Whitley Mahajan MD ; [facility] Viibryd 10 & 20 & 40 MG OR KIT 11/28/2014 - 04/30/2015 Provider: JULIO C EDGE MD Diagnosis: Generalized anxi ety disorder 10 mg in am with food Last Documented On 07/09/2022 5:36PM By Whitley Mahajan MD ; [facility] KlonoPIN 0.5 MG OR TABS 11/28/2014 - 04/30/2015 Provider: JULIO C MAHAJAN MD Diagnosis: Generalized anxi ety disorder as directed 1/2 to 1 tablet as needed only for anxiety Last Documented On 07/09/2022 5:36PM By Whitley Mahajan MD ; [facility] Lexapro 20 MG OR TABS 11/28/2014 - 04/30/2015 Provider: JULIO C EDGE MD Diagnosis: Major depressive disorder, recurrent, unspecified 1tab - 1 tablet every noon Last Documented On 07/09/2022 5:36PM By Whitley Mahajan MD ; [facility] KlonoPIN 0.5 MG OR TABS 05/24/2014 - 11/28/2014 Provider: JULIO C MAHAJAN MD Diagnosis: GENERALIZED ANXI ETY DIS as directed 1/2 to 1 tablet as needed only for anxiety--has 10 left Last Documented On 07/09/2022 5:36PM By Whitley Mahajan MD ; [facility] Dialyvite Vitamin D3 Max 1.25 MG (99455 UT) OR TABS 05/23/2014 - 01/04/2018 Provider: JULIO C MAHAJAN MD Diagnosis: VITAMIN D DEFICI ENCY NOS as directed -- 1 tab once a week Last Documented On 07/09/2022 5:36PM By Whitley Mahajan MD ; [facility] Lexapro 20 MG OR TABS 05/23/2014 - 11/28/2014 Provider: JULIO C EDGE MD Diagnosis: MAJOR DEPRESSION DISORDER/RECURRENT 1tab - 1 tablet every morning Last Documented On 07/09/2022 5:36PM By Whitley Mahajan MD ; [facility] KlonoPIN 0.5 MG OR TABS 11/29/2013 - 05/23/2014 Provider: JULIO C MAHAJAN MD Diagnosis: GENERALIZED ANXI ETY DIS 1/2 to 1 tablet as needed on ly for anxiety--has 20 left -- used about 8 times within the last 6 mos Last Documented On 07/09/2022 5:36PM By Whitley Mahajan MD ; [facility] Lexapro 20 MG OR TABS 11/29/2013 - 05/23/2014 Provider: JULIO C EDGE MD Diagnosis: MAJOR DEPRESSION DISORDER/RECURRENT Last Documented On 07/09/2022 5:36PM By Whitley Mahajan MD ; [facility] Crestor 20 MG OR TABS 11/07/2013 - 07/24/2019 Provider : Diagnosis: one tablet daily Last Documented On 07/09/2022 5:36PM By KATERIN BERGER ; [facility] Lexapro 20 MG OR TABS 08/03/2013 - 11/29/2013 Provider: JULIO C EDGE MD Diagnosis: MAJOR DEPRESSION DISORDER/RECURRENT Last Documented On 07/09/2022 5:36PM By Whitley Mahajan MD ; [facility] Lexapro 20 MG OR TABS 06/07/2013 - 08/03/2013 Provider: JULIO C EDGE MD Diagnosis: MAJOR DEPRESSION DISORDER/RECURRENT Last Documented On 07/09/2022 5:36PM By Whitley Mahajan MD ; [facility] KlonoPIN 0.5 MG OR TABS 06/07/2013 - 11/29/2013 Provider: JULIO C MAHAJAN MD Diagnosis: GENERALIZED ANXI ETY DIS 1/2 to 1 tablet as needed on ly for anxiety--has not used much Last Documented On 07/09/2022 5:36PM By Whitley Mahajan MD ; [facility] KlonoPIN 0.5 MG OR TABS 01/05/2013 - 06/07/2013 Provider: JULIO C MAHAJAN MD Diagnosis: GENERALIZED ANXI ETY DIS 1/2 to 1 tablet as needed on ly for anxiety--at times uses it at night for sleep--only uses it 1 x every 3 weeks only as needed Last Documented On 07/09/2022 5:36PM By Whitley Mahajan MD ; [facility] Lexapro 20 MG OR TABS 01/05/2013 - 06/07/2013 Provider: JULIO C EDGE MD Diagnosis: MAJOR DEPRESSION DISORDER/RECURRENT Last Documented On 07/09/2022 5:36PM By Whitley Mahajan MD ; [facility] Lipitor 40 MG OR TABS 01/04/2013 - 11/29/2013 Provider : Diagnosis: Last Documented On 07/09/2022 5:36PM By KATERIN BERGER ; [facility] KlonoPIN 0.5 MG OR TABS 09/07/2012 - 01/04/2013 Provider: JULIO C MAHAJAN MD Diagnosis: GENERALIZED ANXI ETY DIS 1/2 to 1 tablet as needed only for anxiety Last Documented On 07/09/2022 5:36PM By Whitley Mahajan MD ; [facility] Diclofenac Sodium 75 MG OR TBEC 09/07/2012 - 8 Provider: Diagnosis: Last Documented On 07/09/2022 5:36PM By Whitley Mahajan MD ; [facility] Lexapro 20 MG OR TABS 09/07/2012 - 01/04/2013 Provider: JULIO C EDGE MD Diagnosis: MAJOR DEPRESSION DISORDER/RECURRENT Last Documented On 07/09/2022 5:36PM By Whitley Mahajan MD ; [facility] KlonoPIN 0.5 MG OR TABS 07/06/2012 - 09/07/2012 Provider: JULIO C MAHAJAN MD Diagnosis: GENERALIZED ANXI ETY DIS 1/2 to 1 tablet as needed only for anxiety Last Documented On 07/09/2022 5:36PM By Whitley Mahajan MD ; [facility] Lexapro 20 MG OR TABS 07/06/2012 - 09/07/2012 Provider: JULIO C EDGE MD Diagnosis: MAJOR DEPRESSION DISORDER/RECURRENT Last Documented On 07/09/2022 5:36PM By Whitley Mahajan MD ; [facility] KlonoPIN 0.5 MG OR TABS 06/20/2012 - 07/06/2012 Provider: JULIO C MAHAJAN MD Diagnosis: GENERALIZED ANXI ETY DIS as needed only for anxiety---colon 22 left Last Documented On 07/09/2022 5:36PM By Whitley Mahajan MD ; [facility] Lexapro 20 MG OR TABS 06/20/2012 - 07/06/2012 Provider: JULIO C EDGE MD Diagnosis: MAJOR DEPRESSION DISORDER/RECURRENT Last Documented On 07/09/2022 5:36PM By Whitley Mahajan MD ; [facility] Ativan 1 MG OR TABS 06/12/2012 - 06/20/2012 Provider: Diagnosis: 1/2 to 1 tablet bid prn Last Documented On 07/09/2022 5:36PM By Whitley Mahajan MD ; [facility] KlonoPIN 0.5 MG OR TABS 06/12/2012 - 06/20/2012 Provider: JULIO C MAHAJAN MD Diagnosis: GENERALIZED ANXI ETY DIS as needed only for anxiety Last Documented On 07/09/2022 5:36PM By Whitley Mahajan MD ; [facility] Remeron 15 MG OR TABS 06/12/2012 - 07/06/2012 Provider: JULIO C EDGE MD Diagnosis: MAJOR DEPRESSION DISORDER/RECURRENT Last Documented On 07/09/2022 5:36PM By Whitley Mahajan MD ; [facility] Lexapro 20 MG OR TABS 06/12/2012 - 06/20/2012 Provider: JULIO C EDGE MD Diagnosis: MAJOR DEPRESSION DISORDER/RECURRENT Last Documented On 07/09/2022 5:36PM By Whitley Mahajan MD ; [facility] Crestor 20 MG OR TABS 06/12/2012 - 01/04/2013 Provider : Diagnosis: Last Documented On 07/09/2022 5:36PM By KATERIN BARNARD ; [facility] Voltaren-XR 100 MG OR TB24 06/12/2012 - 09/07/2012 Pro vider: Diagnosis: 75 mg twice daily Last Documented On 07/09/2022 5:36PM By KATERIN BARNARD ; [facility] Lexapro 10 MG OR TABS 06/12/2012 - 06/20/2012 Provider : Diagnosis: Last Documented On 07/09/2022 5:36PM By Whitley Mahajan MD ; [facility] Medications Administered Includes: Administered Medications in patient's chart No Administered Medications Recorded Results Includes: Results from 07/14/2023 through 07/13/2024 No Results Recorded For Specified Dates History of Present Illness History of Present Illness not supported for this document type No History of Present Illness Recorded Social History Description Last Updated Current smoker -- does not s moke cigarettes -- chews tobacco - 2 pouches daily 05/30/2023 Last Documented On 8:26AM ; [facility] Smoking Status Unknown Medical History Includes: Medical History in patient's chart No Medical History Recorded Family History Includes: Family History in patient's chart No Family History Recorded Review of Systems Review of Systems not supported for this document type No Review of Systems Recorded Mental Status Description Mild recurrent major depress ion Functional Status No Functional Status Recorded Physical Exam Physical Exam not supported for this document type No Physical Exam Recorded Allergies Includes: Active, inactive, and resolved Allergies Substance Type Reaction Onset Date Resolved Date Statu s Sulfa Antibiotics Allergy Skin Rashes / Eruption of skin 06/12/2012 Active Last Documented On 10/31/2022 3:07PM ; [facility] Note: Imported from external source. Insurance Includes: Active Insurance Policies Plan Name Member ID Group # Subscriber Relationship Effect ciarra Dates 1 - [employer] [id number] DANE Curtis Clinical Notes Includes: Signed Clinical Notes starting from 04/01/2022 No Clinical Notes Recorded
== END 2024-07-12 10:31 | disposition home or self-care (01) ==
LOC: ANHSURGERY 10:35
PROVIDERS: PCP Family Medicine Adolescent Medicine; Visit Provider Orthopaedic Surgery
DX: E78.2 Mixed hyperlipidemia (principal); Z01.818 Encounter for other preprocedural examination
CPT/HCPCS: 93005

== ENCOUNTER 2024-07-22 00:37 | Day surgery (SDC) | payer OTHER, SELFPAY ==
[2024-07-11 12:28] VITALS: BMI 29.0
--- NOTE | 2024-07-11 12:43 | PC.NURSE ---
Report to the Outpatient Waiting Room, entrance under the green pavilion located off [facility], at time 1130AM__ on date _MON 07/22/24_. Planned Procedure Time: _1:30PM__.? Time changes happen often and if your time is changed the preop area will call you the afternoon before. - You and your visitor will be asked to self-screen and do not enter if you have any COVID symptoms. Please call surgeon if you need to reschedule. - A mask is optional within the hospital at this time. Patients may have clear liquids (water, carbonated beverages, clear teas, apple juice) until 3 hours prior to surgery with a maximum of 20 ounces. - No food from midnight until time of surgery and no smoking, or chewing tobacco (or any form of nicotine). No chewing gum, candy or mints. Take only the following medications with a SIP of water on the morning of surgery: ____LEVOTHYROXINE__LEXAPO DO NOT STOP ANY OF YOUR OTHER PRESCRIPTION MEDICATIONS PRIOR TO SURGERY EXCEPT THE FOLLOWING Hold all vitamins and supplements for 3 days per anesthesiologist. Medications to discontinue per physician ____N/A Date to take last dose N/A Please no make-up, nail upper sorbian, hairspray, perfume, deodorant, or body powder the day of surgery.? No jewelry (including any body piercings) or valuables the day of surgery, leave them at home.? Please take a shower or bath the night before, or the morning of, surgery with an antibacterial soap.? Wear comfortable, loose fitting clothing.? - Jewelry must be removed prior to entering the operating room.? Rings and piercings that are not removed may be cut off. - The hospital will not accept responsibility for valuables.? - Please leave all valuables, including medications, at home the day of surgery. If you are going home after surgery, a licensed cross country truck driver must drive you home.? - NO public transportation without another adult if you receive anesthesia. - We recommend that an adult stay with you for 24 hours following discharge. - We also recommend that you do not drive, make important decision, drink alcoholic beverages, or take any drugs that were not prescribed by your health care provider for at least 24 hours after your discharge time. Follow any additional instructions given to you from your surgeon. Telephone instructions given to TANYA and asked if any additional questions and then verbalized understanding. Patient advised to call surgeon office or pre surgery nurse liaison [phone] if any additional questions.
--- NOTE | 2024-07-18 07:33 | PM.IMHP ---
H&P: HPI History of Present Illness Date/Time: 07/18/24 07:33 Chief Complaint: Patient has catching locking and pain in the left knee. Look localize the pain medially. It is worse with activity somewhat relieved by rest. He has failed conservative treatment. He would like to consider surgical debridement. Review of Systems Musculoskeletal: Musculoskeletal: Reports arthralgias, Reports joint swelling and Reports stiffness Neurologic: Reports abnormal gait [facility] Past Medical History Medical History Ankylosing spondylitis High cholesterol Anxiety Colon cancer screening History of deviated nasal septum Ankylosing spondylitis of multiple sites in spine Hypothyroidism, unspecified Surgical History Surgical History History of arthroscopy of right knee Torn meniscus Family History Family History Sibling Diabetes mellitus Father Lung cancer Colon polyp Son Asthma Grandparent Breast cancer Heart disease Mother Hypertension Social History Social History (Updated 07/04/24 @ 08:55 by Inez Jiménez CMA) Smoking status: Never smoker Tobacco type: smokeless tobacco Smokeless tobacco user: chewing tobacco Second hand tobacco smoke exposure: No Additional smoking assessment comments: CHEWS TOBACCO FOR LAST 4 YEARS NO SMOKING HX Alcohol intake: current Alcohol use details: 1-2 x week Substance use: never Substance use type: does not use Do You Feel Safe in your Home?: Yes Lack of Transportation: No Lack of Food: Never True Current Housing: I Have Housing Concerned About Future Housing: No Difficulty Paying Gas/Electric Bills: No Difficulty Paying for Meds: No Currently Unemployed: No Education: Master's Degree or Higher Difficulty w/ Childcare or Family Care: No Living arrangements: with family Occupation/Education: occupation 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 Gender identity (if verbalized by the patient): Male Spiritual care concerns: No Agree to blood products: Yes Meds Home Medications and Allergies Home Medications ?Medication ?Instructions ?Recorded ?Confirmed ?Type escitalopram oxalate 20 mg tablet 20 mg PO DAILY 11/11/21 07/11/24 History indomethacin 50 mg capsule 50 mg PO TID #270 caps 10/30/23 07/11/24 Rx alirocumab 75 mg/mL subcutaneous See Rx Instructions subcut Q14D #6 02/27/24 07/11/24 Rx pen injector (Praluent Pen) mL levothyroxine 50 mcg tablet 50 mcg PO DAILY #90 tabs 02/27/24 07/11/24 Rx aluminum chloride 20 % topical 1 applic topical 2XW PRN excessive 03/21/24 07/11/24 Rx solution (Drysol) sweating #37.5 mL Allergies Allergy/AdvReac Type Severity Reaction Status Date / Time Sulfa (Sulfonamide Allergy Severe Itching Verified 07/04/24 07:15 Antibiotics) Exam Narrative: On exam he has tenderness to palpation over the left knee. He has catching and locking mechanical type symptoms. Neurologically he is intact. He walks with an antalgic gait. He is tender along the joint line has a positive Angeles's test . Eyes: General: appearance normal, both eyes and all related structures Neck: Neck: supple Resp: Effort & Inspection: normal respiratory effort Cardio: Rate: regular rate Rhythm: regular rhythm Radiology Reports: Comments: Magnetic Resonance Report Signed Patient: Getachew Longo MRI of the left knee Clinical history: Chondromalacia Technique: Coronal proton density and proton density-weighted images, sagittal proton-density and T2 fat-sat images, and axial proton-density fat-saturated images were acquired. Findings: Anterior and posterior cruciate ligaments are intact. Medial collateral ligament and the lateral collateral ligament complex are intact. Popliteus tendon is intact. There is oblique flap tear of the posterior horn of the medial meniscus extending to the body segment. Lateral meniscus intact. Articular cartilage is relatively well preserved throughout the knee. Bone marrow signals are unremarkable. Extensor mechanism is intact. No significant joint effusion or Lacy's cyst. Impression: Oblique flap tear of the posterior horn and body of the medial meniscus. Reviewed, dictated and finalized at location . the the Foot X-Ray 05/24/24 Hand X-Ray 05/23/24 Knee X-Ray 06/27/24 Knee MRI 07/02/24 Orthopedics Result Report 06/27/24 Assessment and Plan Assessment and plan (1) Acute medial meniscus tear of left knee: Code(s): S83.242A - Other tear of medial meniscus, current injury, left knee, initial encounter Status: Acute Assessment and Plan: Patient has a medial meniscal tear left knee. He has failed conservative treatment. He has catching and locking and mechanical type symptoms. He would like to consider surgical debridement. I discussed risks, benefits, limitations, and alternatives with the patient in detail. He understands and agrees would like to proceed. Will proceed per his request. Discussed.
[2024-07-22] VITALS (7 sets, daily range): BP systolic 110–170; BP diastolic 72–99; PULSE 66–84; RESP 14–16; TEMP 36.2–36.3; O2SAT 94–100; BMI 29.9
--- OUTSIDE RECORDS SUMMARY | 2024-07-22 00:39 | XMS_ITS | CONTINUITY OF CARE DOCUMENT ---
Author Name adriano oh Address Unknown Organization [facility] Address [address] [place] [address] Phone [phone] Care Team Providers Care Welfare Worker Name Role Phone Mindi FLORES, Drew Unavailable JANAE SMALLS MD Unavailable [phone] SERINA FLORES, JANAE Unavailable [phone] PROBLEMS Condition Status Date Provider Notes Cardiovascular screening active Karyn Meneses INSURANCE PROVIDERS Payer name Policy type / Coverage type [place] red libertarian ID SELF PAY TREATMENT PLAN Date Name CT, Coronary Calcium Score HISTORY OF PROCEDURES Procedure Date Procedure Name Provider Procedure Notes S tatus CT- Coronary CA score Drew Obregon MD completed
--- OUTSIDE RECORDS SUMMARY | 2024-07-22 00:40 | XMS_ITS | Clinical Summary ---
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
--- OUTSIDE RECORDS SUMMARY | 2024-07-22 00:40 | XMS_ITS ---
Author Organization [facility] Address [address] [place], [place] [id number] Care Team Providers Care Crutch Maker Name Role Phone Silvia Liao Unavailable [phone] Allergies No Known Allergies Medications Medication SIG [...] W/U Status Risk Notes Problem Rheumatoid arthritis (53352353) Rheumatoid arthritis, involving unspecified site, unspecified whether rheumatoid factor present (M06.9) Active confirmed Problem Ankylosing spondylitis (3687445) (ankylosing spondylitis) (M45.9) Active confirmed Problem PsA (Psoriatic arthritis) (865651567) PSA (psoriatic arthritis) (L40.50) Active confirmed Problem Hyperlipidaemia (19079437) HLD (hyperlipidemia ) (E78.5) Active confirmed Problem Osteoarthritis (885647573) OA (osteoarthritis ) (M19.90) Active confirmed Problem Hypothyroid (98900637) Hypothyroid (E03.9) Active confirmed Problem Ankylosing spondylitis (5874170) Ankylosing spondylitis of unspecified sites in spine (M45.9) Active confirmed Problem Psoriatic arthritis (disorder) (396898464) Arthropathic psoriasis, unspecified (L40.50) Active confirmed Problem Chronic fatigue syndrome (30563747) Chronic fatigue (R53.82) Active confirmed Vital Signs Height 72 in 06/13/2024 Weight 220 lbs 06/13/2024 BMI 29.83 kg/m2 06/13/2024 Height-cm 182.88 cm 06/13/2024 Weight-kg 99.79 kg 06/13/2024 Encounters Encounter Location Date Provider Diagnosis [address] [place], [place] [id number] 06/13/2024 Silvia Liao Ankylosing spondylitis of unspecified sites in spine M45.9 ; Arthropathic psoriasis, unspecified L40.50 ; Other detention (current) drug therapy Z79.899 and Routine health maintenance Z00.00 Assessments Encounter Date Diagnosis (ICD Code) Assessment Notes Treatment Notes Treatment Clinical Notes Section Notes 06/13/2024 Ankylosing spondylitis of unspecified sites in spine (ICD-10 - M45.9) Mr. Longo is a 54-year-old male with Ankylosing Spondylitis and Psoriatic Arthritis, currently managed by Dr. Delacruz. At this time, patient will begin Taltz. Patient will be monitored detention for symptom control and side effects. SCREENING: [...] psoriasis, unspecified (ICD-10 - L40.50) 06/13/2024 Other terminal gauger supervisor (current) drug therapy (ICD-10 - Z79.899) When [...] begin Taltz. Patient will be monitored terminal gauger supervisor for symptom control and side effects. SCREENING: [...] the office with any concerns. Other terminal gauger supervisor (current) drug therapy W hen on high-risk [...] unusual symptoms. Routine health maintenance https://www.c dc.gov/vaccines/schedules/down loads/adult/myadb-bzatsybo-zfscjwzx.pdf Progress Notes * DANE LONGODOB:1970 (54 yo M)Acc No.[id number]:06/13/2024 Patient: DANE HIGHTOWER Provider: Jackie Liao :1970 A ge:54 Y S ex:Male Date:06/13/2024 Address:[address] [place], [place] [id number] Subjective: * Chief Complaints: * * HPI: [...] hands and elbows have been worsening since 6723-1792. Previously, the patient has tried and failed [...] their health in consult with the patient's hot water heater installer. Biologic/small molecule agents affect human immunology can put patients at risk for various infections and malignancies. Proper monitoring with lab tests and an updated vaccination profile can minimize these risks. A HOC bridge/structure inspection team leader will be available to the patient for [...] unspecified - L40.50 3 . O ther terminal gauger supervisor (current) drug therapy - Z79.899 4 . R EDUonGo health maintenance - Z00.00 Plan: * Treatment: 2. O ther detention (current) drug therapy Notes:When on high-risk medications, [...] lesions, or other unusual symptoms. 3. R EDUonGo health maintenance Notes:https://www.cdc.gov/vaccines/sched ules/downloads/adult/xyskv-eqaiuqmm-brvqw ule.pdf * Billing Information: * Visit Code: * Procedure Codes: Care Plan Details* * Electronic signature of ABDI Zee on 07/22/2024 at 12:40 AM CDT Sign off status: Pending * Provider: Jackie Liao Date: 0 06/13/2024 Generated for Shankar villa/Fredy/Fredis on: 0 07/22/2024 12:40 AM CDT History and Physical Notes * [...] hands and elbows have been worsening since 5654-8225. Previously, the patient has tried and failed [...] their health in consult with the patient's hot water heater installer. Biologic/small molecule agents affect human immunology can put patients at risk for various infections and malignancies. Proper monitoring with lab tests and an updated vaccination profile can minimize these risks. A HOC bridge/structure inspection team leader will be available to the patient for medication management.
--- OUTSIDE RECORDS SUMMARY | 2024-07-22 00:40 | XMS_ITS | Patient Health Record ---
Author Organization [facility] Address [address] [place], [place] [id number] Care Team Providers Care Food Services Director Name Role Phone Silvia Liao Unavailable [phone] Allergies No Known Allergies Reason For Referral [...] Status Risk Notes Problem Psoriatic arthritis (disorder) (905197474) Arthropathic psoriasis, unspecified (L40.50) Active confirmed Problem Ankylosing spondylitis (8459933) Ankylosing spondylitis of unspecified sites in spine (M45.9) Active confirmed Problem Chronic fatigue syndrome (00364660) Chronic fatigue (R53.82) Active confirmed Problem Rheumatoid arthritis (20059945) Rheumatoid arthritis, involving unspecified site, unspecified whether rheumatoid factor present (M06.9) Active confirmed Problem Hypothyroid (96515685) Hypothyroid (E03.9) Active confirmed Problem Osteoarthritis (859172863) OA (osteoarthritis ) (M19.90) Active confirmed Problem Ankylosing spondylitis (2816127) (ankylosing spondylitis) (M45.9) Active confirmed Problem PsA (Psoriatic arthritis) (265518336) PSA (psoriatic arthritis) (L40.50) Active confirmed Problem Hyperlipidaemia (12573588) HLD (hyperlipidemia ) (E78.5) Active confirmed Vital Signs Height-cm 182.88 cm 06/13/2024 Weight-kg 99.79 kg 06/13/2024 Height 72 in 06/13/2024 Weight 220 lbs 06/13/2024 BMI 29.83 kg/m2 06/13/2024 Encounters Encounter Location Date Provider Diagnosis [address] [place], [place] [id number] 06/13/2024 Silvia Liao Ankylosing spondylitis of unspecified sites in spine M45.9 ; Arthropathic psoriasis, unspecified L40.50 ; Other intermediate card tender (current) drug therapy Z79.899 and Routine health maintenance Z00.00 Assessments Encounter Date Diagnosis (ICD Code) Assessment Notes Treatment Notes Treatment Clinical Notes Section Notes 06/13/2024 Ankylosing spondylitis of unspecified sites in spine (ICD-10 - M45.9) Mr. Longo is a 54-year-old male with Ankylosing Spondylitis and Psoriatic Arthritis, currently managed by Dr. Delacruz. At this time, patient will begin Taltz. Patient will be monitored half-way for symptom control and side effects. SCREENING: [...] psoriasis, unspecified (ICD-10 - L40.50) 06/13/2024 Other intermediate card tender (current) drug therapy (ICD-10 - Z79.899) When [...]
--- OUTSIDE RECORDS SUMMARY | 2024-07-22 00:40 | XMS_ITS | Continuity of Care Document ---
Author Organization [facility] Address [address] [place] [address] Phone Care Team Providers Care Tank Wagon Driver Name Role Phone Filiberto BROWN, OTR/L, Gracy DRIVER Unavailable Unavailable Procedures Procedure Date Progress Note Therapeutic Exercise Durable medical equipment misc 18 OT Evaluation Moderate Complexity Therapeutic Exercise Orthotic Mgmt and Training Finger Gutter Xeroform 1 package 1x8 Coban 1-3 Inch Advance Directives Directive Yes / No Effective Date File Name No Information Encounters Encounter Description Practice Location Reason(s) For Visit Diagnoses Date Provider Providers Copied on Encounter [facility], [id number], tel:[phone] [place] No Information 9 Filiberto Dubose. [address] [facility] [facility] [address], [address], . tel:[phone] [facility], [address], [id number], tel:[phone] [place] Stiffness of left hand, not elsewhere classifiedPain in left finger(s)Effusi on, left handStiffness of left wrist, not elsewhere classifiedOther general symptoms and signsUnsp injury of left wrist, hand and finger(s), subs encntrArthrodes is status 8 Filiberto Dubose. [address] [facility], [address], [place], [address], [place]. tel:[phone] Referring Provider: Bharat Childs, [address], [place], [address]. tel:[phone] [facility] [place], [address] [facility] [address], [place], [place], [id number], [place] tel:[phone] [place] Stiffness of left hand, not elsewhere classifiedPain in left finger(s)Effusi on, left handStiffness of left wrist, not elsewhere classifiedOther general symptoms and signsUnsp injury of left wrist, hand and finger(s), subs encntrArthrodes is status 8 Filiberto Dubose. [address] [facility], [address], [place], [address], . tel:[phone] Referring Provider: Bharat Childs, [address] , [place], [address]. tel:[phone] Family History Family Member Type Diagnosis Age At Onset No Information Payers Payer name Insurance type Covered republican ID Authormarlia tismiley(s) [facility] CI [id number] Social History Type Description Quantity Date Captured Comments Sex Male Smoking Status No Information Chief Complaint And Reason For Visit No Information Reason For Referral Reason For Referral No Information History Of Present Illness Encounter Date Complaint History Of Prese nt Illness No Information Functional Status Date Functional Assessmen t No Information Instructions Date Instruction Additional Infor mation No Information Assessments Type Assessment Date No Information Patient Care Teams Name Effective Dates (start - stop) Status Members No Information
[2024-07-22] MEDS: ACETAMINOPHEN 500 MG TABLET 1000 MG PO (12:15)
[2024-07-22] MEDS: KETOROLAC 15 MG/ML VIAL (*BKC) IV PUSH (12:30)
--- NOTE | 2024-07-22 13:20 | WPDHPUPDATE1 ---
History and Physical Update Update Date/Time: 07/22/24 13:20 History and Physical has been reviewed, including an updated exam of the patient. There are NO changes in the patient's condition. Risks, benefits, and alternatives have been discussed and questions answered. Patient agrees to proceed with procedure. Op consent: Iis arthroscopy left knee with partial medial meniscectomy, proceed as indicated.
--- NOTE | 2024-07-22 13:34 | WPDANESEPPF ---
Anes - Initial Pre Proc Eval Procedure: Operation Date: 07/22/24 13:30 Proposed Procedures p Left Knee Arthroscopy Partial Meniscectomy, Proceed As Indicated - Butch Hardin MD Date/Time: 07/22/24 13:34 Surgeon: Butch Hardin MD Pre Op Diagnosis: Left Medial Meniscal Tear Patient Data Age: 54 Gender: M Height: 1.85 m Weight: 100 kg Allergies Allergy/AdvReac Type Severity Reaction Status Date / Time Sulfa (Sulfonamide Allergy Severe Itching Verified 07/04/24 07:15 Antibiotics) Home Medications ?Medication ?Instructions ?Recorded ?Confirmed ?Type escitalopram oxalate 20 mg tablet 20 mg PO DAILY 11/11/21 07/11/24 History indomethacin 50 mg capsule 50 mg PO TID #270 caps 10/30/23 07/11/24 Rx alirocumab 75 mg/mL subcutaneous See Rx Instructions subcut Q14D #6 02/27/24 07/11/24 Rx pen injector (Praluent Pen) mL levothyroxine 50 mcg tablet 50 mcg PO DAILY #90 tabs 02/27/24 07/11/24 Rx aluminum chloride 20 % topical 1 applic topical 2XW PRN excessive 03/21/24 07/11/24 Rx solution (Drysol) sweating #37.5 mL Patient hx anesthesia problems: none Family hx anesthesia problems: none Results Review: All pre-operative results and documents have been reviewed as part of the pre-operative evaluation. [facility] Past Medical History Medical History Ankylosing spondylitis High cholesterol Anxiety Colon cancer screening History of deviated nasal septum Ankylosing spondylitis of multiple sites in spine Hypothyroidism, unspecified Surgical History Surgical History History of arthroscopy of right knee Torn meniscus Family History Family History Sibling Diabetes mellitus Father Lung cancer Colon polyp Son Asthma Grandparent Breast cancer Heart disease Mother Hypertension Social History Social History Smoking status: Never smoker Tobacco type: smokeless tobacco Smokeless tobacco user: chewing tobacco Second hand tobacco smoke exposure: No Additional smoking assessment comments: CHEWS TOBACCO FOR LAST 4 YEARS NO SMOKING HX Alcohol intake: current Alcohol use details: 1-2 x week Substance use: never Substance use type: does not use Do You Feel Safe in your Home?: Yes Lack of Transportation: No Lack of Food: Never True Current Housing: I Have Housing Concerned About Future Housing: No Difficulty Paying Gas/Electric Bills: No Difficulty Paying for Meds: No Currently Unemployed: No Education: Master's Degree or Higher Difficulty w/ Childcare or Family Care: No Living arrangements: with family Occupation/Education: occupation 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 Gender identity (if verbalized by the patient): Male Spiritual care concerns: No Agree to blood products: Yes Anes - Eval Final PreProcedure Day of Procedure 07/22/24 13:34 Patient weight: overweight Lungs: normal air movement Airway: Mallampati scale class II Neurological: alert and oriented Last oral intake: >/= 8 hours ASA classification: III Emergent: no Anesthetic plan: proceed Anesthesia type and monitoring: general LMA and standard monitoring Results Review: All pre-operative results and documents have been reviewed as part of the pre-operative evaluation. Hypothyroidism, sleep study in the past inconclusive. 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 Informed Consent: The patient's anesthetic plan and its attendant risks and benefits were discussed with the patient/family/POA. Questions were solicited and answers provided to the satisfaction of the patient/family/POA.
[2024-07-22] MEDS: ceFAZolin 2 GM/D5W 50 ML 2 GM/50 ML BAG IVPB (13:50)
[2024-07-22] MEDS: LIDO 1%/EPINEPHRINE 1:100,000 20 ML VIAL INFILTRATE (14:05)
--- NOTE | 2024-07-22 14:08 | W.PM.PROC2 ---
Procedure Note - Detailed Date of Procedure 07/22/24 Pre-op Diagnosis Left Medial Meniscal Tear Post-op Diagnosis Same Procedure Performed LEFT knee arthroscopy with partial meniscectomy Surgeon Butch Hardin MD Anesthesia General Indications Pain, Locking and Catching Description of Procedure Patient brought to operating room # 8. An anesthetic was administered. The knee was sterilely prepped and draped in the usual manner. Standard portals were used. Superior medial portal was used for the outflow cannula, inferior lateral portal was used for the scope, inferior medial portal was used for the instruments. Arthroscopy was performed, the patellar femoral joint degenerative changes. The medial compartment showed a complex tear. The lateral compartment showed fraying. The ACL was intact. Using baskets and unruly the meniscal tear was trimmed back to a stable base so the nothing further could be pulled into the joint. Any loose or delaminated fragments were gently trimmed to a stable base. At this point the instruments were withdrawn, sutures placed and patient left the operating room in satisfactory condition. Estimated Blood Loss 20 Drains No Packing No Pathology None sent Complications No immediate complications Condition Stable Disposition PACU [facility] Billing Surgery - Charge Forward: Surgery Billing ([id number] Scope w/ Menis)
[2024-07-22] MEDS: LACTATED RINGERS 1,000 ML 30 ML IV CONT (14:19)
== END 2024-07-22 15:45 | disposition home or self-care (01) ==
PROVIDERS: PCP Family Medicine Adolescent Medicine; Visit Provider Orthopaedic Surgery
PROC: (CPT 29870; principal; 2024-07-22 13:30)
DX: S83.232A Complex tear of medial meniscus, current injury, left knee, initial encounter (principal); M17.12 Unilateral primary osteoarthritis, left knee; E03.9 Hypothyroidism, unspecified; F41.9 Anxiety disorder, unspecified; E78.00 Pure hypercholesterolemia, unspecified; F17.220 Nicotine dependence, chewing tobacco, uncomplicated; X58.XXXA Exposure to other specified factors, initial encounter; Z79.85 Long-term (current) use of injectable non-insulin antidiabetic drugs; Z98.890 Other specified postprocedural states; Z80.1 Family history of malignant neoplasm of trachea, bronchus and lung; Z80.3 Family history of malignant neoplasm of breast; Z83.719 Family history of colon polyps, unspecified; Z82.49 Family history of ischemic heart disease and other diseases of the circulatory system
CPT/HCPCS: 29881; A9270; J0690; J1100; J1885; J2003; J2004; J2250; J2270; J2405; J2704; J3010; J7120